=== PATIENT | female | born 1935 | race Caucasian/White ===

== ENCOUNTER 2016-08-17 10:00 | Inpatient (IN) | payer OTHER ==
[2016-08-17 10:42] VITALS: BMI 25.7
[2016-08-17] MEDS ORDERED: ACETAMINOPHEN 1000 MG/100 ML VIAL (NON FORMULARY) IVPB ONE (10:43)
[2016-08-17] MEDS ORDERED: ACETAMINOPHEN INJECTION 100 ML IVPB ONE (10:47)
--- NOTE | 2016-08-17 10:47 | PDOC ---
History of Present Illness - General History Source: Patient, Care Provider Exam Limitations: Dementia - History of Present Illness Initial Comments: 08/17/16 10:48 The patient is a 80 year old female, with a significant past medical history of HTN, HLD, NIDDM, Alzheimer's disease (A&O x 2 at baseline), and MS (able to walk with assistance) who presents to the emergency department with s/p unwitnessed fall. The patients aid reports finding the patient on the floor, reporting that the states she trip and fell earlier in the morning. The patients aid reports since finding the patient on the floor she has had been more tired than her normal baseline. The patient does not remember the fall and has no complaints of pain. She denies recent fevers, chills, headache or dizziness. She denies recent nausea, vomit, diarrhea or constipation. She denies recent dysuria, frequency, urgency or hematuria. She denies recent chest pain or shortness of breath. Allergies: NKA Past surgical history: None reported. Social history: Nonsmoker. Denies EtOH use and recreational drug use. Lives with , has aide 5 days a week, for 6 hours. Primary Care Physician: [facility] Proxy: Eunice Urbina [phone] <Daniel Bassett - Last Filed: 08/17/16 10:47> - General History Source: Patient, Care Provider, Old Records Exam Limitations: Dementia <Kev Hernandez - Last Filed: 08/17/16 16:14> - General Chief Complaint: Altered Mental Status Stated Complaint: Altered Mental Status Time Seen by Provider: 08/17/16 10:13 Past History <Daniel Bassett - Last Filed: 08/17/16 10:47> - Past Medical History Anemia: No Asthma: No Cancer: No Cardiac Disorders: No CVA: No COPD: No CHF: No Dementia: Yes Diabetes: Yes GI Disorders: Yes (diverticulosis, IBS, hemmoroids) Disorders: No HTN: Yes Hypercholesterolemia: Yes Liver Disease: No Seizures: No Thyroid Disease: No - Surgical History Abdominal Surgery: No Appendectomy: Yes Cardiac Surgery: No Cholecystectomy: No Lung Surgery: No Neurologic Surgery: No Orthopedic Surgery: Yes (femur fx) - Immunization History Immunization Up to Date: Yes - Psycho/Social/Smoking Cessation Hx Anxiety: No Suicidal Ideation: No Smoking History: Unknown if ever smoked Have you smoked in the past 12 months: No If you are a former smoker, when did you quit?: 20 yrs ago Information on smoking cessation initiated: No Hx Alcohol Use: No Drug/Substance Use Hx: No Substance Use Type: None Hx Substance Use Treatment: No <Kev Hernandez - Last Filed: 08/17/16 16:14> - Past Medical History Allergies/Adverse Reactions: Allergies Allergy/AdvReac Type Severity Reaction Status Date / Time No Known Allergies Allergy Verified 08/04/15 08:12 Home Medications: Ambulatory Orders Acetaminophen [Tylenol .Regular Strength -] 650 mg PO Q4H PRN #100 tablet Aspirin [ASA -] 81 mg PO DAILY #30 tab.chew 10/29/13 Atorvastatin Ca [Lipitor] 20 mg PO HS #30 tablet 10/29/13 Clopidogrel Bisulfate [Plavix -] 75 mg PO DAILY #30 tablet 10/29/13 Donepezil HCl [Aricept -] 10 mg PO HS #30 tablet 10/29/13 Memantine HCl [Namenda -] 10 mg PO BID #60 tablet 10/29/13 Metformin HCl [Glucophage -] 500 mg PO ACDIN #30 tablet 10/29/13 Atenolol [Tenormin -] 25 mg PO DAILY #30 tablet 06/20/14 Brimonidine Tartrate [Alphagan P 0.1% -] 1 drop OU BID drops 06/20/14 Olanzapine [Zyprexa -] 5 mg PO HS #30 tablet 06/20/14 Lactobacillus Acidophilus [Acidophilus Lactobacillus] 1 each PO DAILY 10 Days Review of Systems - Review of Systems Able to Perform ROS?: Yes Comments:: 08/17/16 10:48 GENERAL/CONSTITUTIONAL: No fever or chills. HEAD, EYES, EARS, NOSE AND THROAT: No change in vision. No ear pain or discharge. No sore throat. CARDIOVASCULAR: No chest pain or shortness of breath. RESPIRATORY: No cough, wheezing, or hemoptysis. GASTROINTESTINAL: No nausea, vomiting, diarrhea or constipation. GENITOURINARY: No dysuria, frequency, or change in urination. MUSCULOSKELETAL: No joint or muscle swelling or pain. No neck or back pain. SKIN: No rash NEUROLOGIC: No headache, vertigo, loss of consciousness, or change in strength/ sensation. ENDOCRINE: No increased thirst. No abnormal weight change. HEMATOLOGIC/LYMPHATIC: No anemia, easy bleeding, or history of blood clots. ALLERGIC/IMMUNOLOGIC: No hives or skin allergy. <Daniel Bassett - Last Filed: 08/17/16 10:47> *Physical Exam - Vital Signs Last Vital Signs Temp Pulse Resp BP Pulse Ox 100.3 F H 62 18 134/58 92 L 08/17/16 10:23 08/17/16 10:23 08/17/16 10:08/17/16 10:23 08/17/16 10:23 - Physical Exam Comments: 08/17/16 10:48 GENERAL: A&O x2, in no acute distress HEAD: No signs of trauma EYES: PERRLA, EOMI, sclera anicteric, conjunctiva clear ENT: Auricles normal inspection, hearing grossly normal, nares patent, oropharynx clear without exudates. Moist mucosa NECK: Normal ROM, supple, no lymphadenopathy, JVD, or masses LUNGS: Breath sounds equal, clear to auscultation bilaterally. No wheezes, and no crackles HEART: Regular rate and rhythm, normal S1 and S2, no murmurs, rubs or gallops ABDOMEN: Soft, nontender, normoactive bowel sounds. No guarding, no rebound. No masses EXTREMITIES: Normal range of motion, no edema. No clubbing or cyanosis. No cords, erythema, or tenderness NEUROLOGICAL: Cranial nerves II through XII grossly intact. SKIN: Warm, Dry, normal turgor, no rashes or lesions noted. <Daniel Bassett - Last Filed: 08/17/16 10:47> - Vital Signs Last Vital Signs Temp Pulse Resp BP Pulse Ox 100.3 F H 62 18 134/58 92 L 08/17/16 10:23 08/17/16 10:23 08/17/16 10:08/17/16 10:23 08/17/16 10:23 <Kev Hernandez - Last Filed: 08/17/16 16:14> Heart Score/ECG Review #1 ECG reviewed & interpreted by me at: 11:00 08/17/16 11:47 NSr 67, left axis deviation, TWI I, aVL, V4-V6, no HOWARD/STD, QTC 445 msec <MaryKev - Last Filed: 08/17/16 16:14> ED Treatment Course - LABORATORY CBC & Chemistry Diagram: 08/17/16 15:16 08/17/16 12:40 - RADIOLOGY Radiology Studies Ordered: Category Date Time Status HEAD CT WITHOUT CONTRAST [CT] Stat CT Scan 08/17/16 10:43 Ordered CHEST X-RAY PORTABLE* [RAD] Stat Radiology 08/17/16 10:18 Ordered <Debra Hernandezel - Last Filed: 08/17/16 16:14> Medical Decision Making - Medical Decision Making 08/17/16 11:46 A portion of this note was documented by scribe services under my direction. I have reviewed the details of the note, within reason, and agree with the documentation with the following case summary and management plan written by me. Patient treated in the ED. Nursing notes are reviewed and incorporated into the medical decision-making. Vital signs reviewed. Peripheral IV access obtained by the nurse, laboratory studies are drawn and sent, reviewed and interpreted by myself. Vital Signs Temp Pulse Resp BP Pulse Ox 100.3 F H 62 18 134/58 92 L 08/17/16 10:23 08/17/16 10:23 08/17/16 10:23 08/17/16 10:23 08/17/16 10:23 80-year-old female with past medical history of hypertension, diabetes, hyperlipidemia, Alzheimer's disease, multiple sclerosis, history urinary tract infections presents with found on ground. Patient lives with her but has daytime home health aides. When the home health aide came, the patient was not on the ground with a pillow underneath her head. The patient's was not sure the patient fell or not and has been on the ground for several hours. The home health aide noticed that the patient was warm and brought the patient to ED. The patient is at mental baseline according to the home health aide. However, with a temperature as noted in the vital signs, adult sepsis protocol initiated. We'll also initiate a head CT. Patient's whole mouth a noticed a mild cough as well. Chest x-ray and reassess. 08/17/16 16:14 CBC, BMP 08/17/16 15:16 08/17/16 12:40 CMP Sodium 144 mmol/L (136-145) 08/17/16 12:40 Potassium 3.7 mmol/L (3.5-5.1) 08/17/16 12:40 Chloride 104 mmol/L (98-107) 08/17/16 12:40 Carbon Dioxide 31 mmol/L (21-32) 08/17/16 12:40 Anion Gap 9 (8-16) 08/17/16 12:40 BUN 15 mg/dL (7-18) D 08/17/16 12:40 Creatinine 0.7 mg/dL (0.55-1.02) 08/17/16 12:40 Creat Clearance w eGFR > 60 (>60) 08/17/16 12:40 Random Glucose 121 mg/dL (74-106) H D 08/17/16 12:40 Lactic Acid 1.6 mmol/L (0.4-2.0) 08/17/16 12:40 Calcium 9.1 mg/dL (8.5-10.1) 08/17/16 12:40 Total Bilirubin 0.7 mg/dL (0.2-1.0) D 08/17/16 12:40 AST 18 U/L (15-37) 08/17/16 12:40 ALT 16 U/L (12-78) D 08/17/16 12:40 Alkaline Phosphatase 109 U/L (45-117) 08/17/16 12:40 Creatine Kinase 265 IU/L (26-192) H D 08/17/16 12:40 Troponin I < 0.02 ng/ml (0.00-0.05) 08/17/16 12:40 Total Protein 6.1 g/dl (6.4-8.2) L 08/17/16 12:40 Albumin 3.2 g/dl (3.4-5.0) L 08/17/16 12:40 Urine Test Results Urine Color Yellow 08/17/16 11:51 Urine Appearance Slcloudy 08/17/16 11:51 Urine pH 5.0 (5.0-8.0) 08/17/16 11:51 Urine Protein Negative (NEGATIVE) 08/17/16 11:51 Urine Glucose (UA) Negative (NEGATIVE) 08/17/16 11:51 Urine Ketones Negative (NEGATIVE) 08/17/16 11:51 Urine Blood Negative (NEGATIVE) 08/17/16 11:51 Urine Nitrite Positive (NEGATIVE) 08/17/16 11:51 Urine Bilirubin Negative (NEGATIVE) 08/17/16 11:51 Ur Leukocyte Esterase 3+ (NEGATIVE) H D 08/17/16 11:51 Urine RBC 1 /hpf (0-3) 08/17/16 11:51 Urine WBC 193 /hpf (3-5) 08/17/16 11:51 Ur Epithelial Cells Rare /hpf (FEW) 08/17/16 11:51 Urine Bacteria Few /hpf (NONE SEEN) 08/17/16 11:51 Urine Mucus Rare 08/17/16 11:[address] head reviewed. No acute findings. Microbiology reviewed. Has some resistance. Given zosyn. Decision was made to admit the patient. case discussed with Dr. Martinez who accepts the patient for UTI. <Kev Hernandez - Last Filed: 08/17/16 16:14> *DC/Admit/Observation/Transfer - Attestations Scribe Attestion: 08/17/16 10:48 Documentation prepared by Daniel Bassett, acting as medical affairs director for Kev Hernandez MD. <Daniel Bassett - Last Filed: 08/17/16 10:47> - Discharge Dispostion Admit: Yes <Kev Hernandez - Last Filed: 08/17/16 16:14> Diagnosis at time of Disposition: UTI (urinary tract infection) Qualifiers: Urinary tract infection type: site unspecified Hematuria presence: without hematuria Qualified Code(s): N39.0 - Urinary tract infection, site not specified - Discharge Dispostion Condition at time of disposition: Stable - Referrals Referrals: Harley Altman MD [Primary Care Provider] -
[2016-08-17] MEDS ORDERED: SODIUM CHLORIDE 500 ML IV STA (11:56)
[2016-08-17 12:02] LABS: URINE APPEARANCE SLCLOUDY; URINE BILIRUBIN NEGATIVE (NEGATIVE); URINE BLOOD NEGATIVE (NEGATIVE); URINE COLOR YELLOW; URINE GLUCOSE (UA) NEGATIVE (NEGATIVE); URINE KETONE NEGATIVE (NEGATIVE); URINE NITRITE POSITIVE (NEGATIVE); URINE PROTEIN NEGATIVE (NEGATIVE); URINE UROBILINOGEN NEGATIVE E.U./dl (0.2-1.0)
[2016-08-17 12:05] LABS: URINE LEUK ESTERASE 3+ (NEGATIVE)
[2016-08-17 12:08] LABS: URINE BACTERIA FEW /hpf (NONE SEEN); URINE MUCUS RARE; URINE RBC 1 /hpf (0-3); URINE WBC 193 /hpf (3-5)
[2016-08-17 12:19] LABS: INR 1.03 (0.82-1.09); PROTHROMBIN TIME (PATIENT) 11.3 SEC (9.98-11.88)
[2016-08-17 12:21] LABS: ACTIVATED PTT 17.7 SECONDS (26.9-34.4)
[2016-08-17] MEDS ORDERED: PIPERACILLIN/TAZOB 3.375 GM/50 ML PRE-DOCKED IVPB ONE (12:37)
[2016-08-17] MEDS ORDERED: PIPERACILLIN/TAZOB 3.375 GM 50 ML IVPB ONE (13:01)
--- NOTE | 2016-08-17 13:04 | EKG ---
Test Reason : Blood Pressure : / mmHG Vent. Rate : 067 BPM Atrial Rate : 067 BPM P-R Int : 136 ms QRS Dur : 112 ms QT Int : 422 ms P-R-T Axes : 061 -40 136 degrees QTc Int : 445 ms NORMAL SINUS RHYTHM LEFT AXIS DEVIATION POSSIBLE ANTERIOR INFARCT (CITED ON OR BEFORE 21-OCT-2013) ABNORMAL ECG WHEN COMPARED WITH ECG OF 04-AUG-2015 08:42, QUESTIONABLE CHANGE IN INITIAL FORCES OF ANTERIOR LEADS T WAVE INVERSION NOW EVIDENT IN ANTEROLATERAL LEADS Confirmed by VIDHYA VIVAR, ALANA ([id number]) on 08/17/2016 1:03:51 PM Referred By: Confirmed By:ALANA KEE MD
[2016-08-17 13:12] LABS: ALBUMIN 3.2 g/dl (3.4-5.0); ANION GAP 9 (8-16); BILIRUBIN,TOTAL 0.7 mg/dL (0.2-1.0); CALCIUM 9.1 mg/dL (8.5-10.1); CO2 31 mmol/L (21-32); CREATININE 0.7 mg/dL (0.55-1.02); GLUCOSE,RANDOM 121 mg/dL (74-106); SGOT/AST 18 U/L (15-37); SGPT/ALT 16 U/L (12-78); TOT PROT 6.1 g/dl (6.4-8.2)
[2016-08-17 13:15] LABS: ALK PHOS 109 U/L (45-117); TROPONIN I < 0.02 ng/ml (0.00-0.05)
[2016-08-17] MEDS ORDERED: LORAZEPAM CARPU-JECT 2 MG/ML DISP.SYRIN IM ONE (14:01)
[2016-08-17] MEDS ORDERED: HALOPERIDOL LACTATE 5 MG/ML IM ONE (14:01)
[2016-08-17] MEDS ORDERED: HALOPERIDOL LACTATE 5 MG/ML ONE (14:29)
[2016-08-17] MEDS ORDERED: LORazepam 2 MG/ML SDV VIAL ONE (14:29)
[2016-08-17 15:31] LABS: BASOPHIL 0.5 % (0-2.0); EOSINOPHIL 0.2 % (0-4.5); MCH 32.3 pg (25.7-33.7); MCHC 33.5 g/dl (32.0-36.0); MEAN CELL VOLUME 96.3 fl (80-96); NEUTROPHILS 81.3 % (42.8-82.8); PLATELET COUNT 191 K/MM3 (134-434); RDW 12.5 % (11.6-15.6); WHITE BLOOD COUNT 9.9 K/mm3 (4.0-10.0)
[2016-08-17] MEDS ORDERED: ONDANSETRON 4 MG/2 ML VIAL IVPB PRN (16:35)
[2016-08-17] MEDS ORDERED: ACETAMINOPHEN 325 MG TABLET (FP) PO PRN (16:35)
--- NOTE | 2016-08-17 16:38 | HP ---
Admitting History and Physical - Primary Care Physician PCP: Harley Altman - Admission Chief Complaint: I feel fine History of Present Illness: Mrs Urbina is a very pleasant 80 year old female with history of dementia who was brought in for weakness and fatigue. Mrs Urbina gives me minimal history. She says she feels fine.She denies fevers, chest pain, shortness of breath, or nausea. She does not answer any other questions. Aid is at bedside and she states she last saw Mrs Urbina on Monday. At that time she was in her normal state of health. She went over today and found her on the ground. It is unclear if she fell or laid on the ground of her own accord. Her states he found her that way this morning, and since was unable to pick her up placed a pillow under her head. The aid picked her up and put her in a chair. She went and prepared breakfast, patient did not eat anything. Then she noticed the patient was very weak and lethargic and brought her in for further evaluation. 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: Alzheimer's (Mild (on Aricept and Namenda)), Other (Possible demyelinating disorder (sees Dr Barajas)) Cardiovascular: Yes: CAD, Hyperlipdemia, Other (H/O PVCs Sinus tachycardia) Gastrointestinal: Yes: Diverticulosis, Hemorrhoids, Irritable Bowel Disease Renal/: Yes: UTI (H/O) Musculoskeletal: Yes: Osteoarthritis Endocrine: Yes: Diabetes Mellitus - Past Surgical History Past Surgical History: Yes: Appendectomy, Cataract Removal (bilateral) - Smoking History Smoking history: Unknown if ever smoked Have you smoked in the past 12 months: No If you are a former smoker, when did you quit?: 20 yrs ago - Alcohol/Substance Use Hx Alcohol Use: No History of Substance Use: reports: None - Social History Usual Living Arrangement: Yes: With Spouse ADL: Support Services History of Recent Travel: No Home Medications - Allergies Allergies/Adverse Reactions: Allergies Allergy/AdvReac Type Severity Reaction Status Date / Time No Known Allergies Allergy Verified 08/04/15 08:12 - Home Medications Home Medications: Ambulatory Orders Acetaminophen [Tylenol .Regular Strength -] 650 mg PO Q4H PRN #100 tablet Aspirin [ASA -] 81 mg PO DAILY #30 tab.chew 10/29/13 Atorvastatin Ca [Lipitor] 20 mg PO HS #30 tablet 10/29/13 Clopidogrel Bisulfate [Plavix -] 75 mg PO DAILY #30 tablet 10/29/13 Donepezil HCl [Aricept -] 10 mg PO HS #30 tablet 10/29/13 Memantine HCl [Namenda -] 10 mg PO BID #60 tablet 10/29/13 Metformin HCl [Glucophage -] 500 mg PO ACDIN #30 tablet 10/29/13 Atenolol [Tenormin -] 25 mg PO DAILY #30 tablet 06/20/14 Brimonidine Tartrate [Alphagan P 0.1% -] 1 drop OU BID drops 06/20/14 Olanzapine [Zyprexa -] 5 mg PO HS #30 tablet 06/20/14 Lactobacillus Acidophilus [Acidophilus Lactobacillus] 1 each PO DAILY 10 Days Family Disease History - Family Disease History Family History: Unable to Obtain Review of Systems Findings/Remarks: Attempted to obtain full ROS but unable secondary to dementia, otherwise as per HPI Physical Examination Vital Signs: Vital Signs Temperature 100.3 F H 08/17/16 10:23 Pulse Rate 62 08/17/16 10:23 Respiratory Rate 18 08/17/16 10:23 Blood Pressure 134/58 08/17/16 10:23 O2 Sat by Pulse Oximetry (%) 92 L 08/17/16 10:23 Constitutional: Yes: Well Nourished, No Distress, Calm Eyes: Yes: Conjunctiva Clear, PERRL HENT: Yes: Atraumatic, Normocephalic Cardiovascular: Yes: Regular Rate and Rhythm. No: Gallop, Murmur, Rub Respiratory: Yes: Regular, CTA Bilaterally. No: Rales, Rhonchi, Wheezes Gastrointestinal: Yes: Normal Bowel Sounds, Soft. No: Distention, Tenderness Extremities: Yes: WNL Edema: No Labs: CBC, BMP 08/17/16 15:16 08/17/16 12:40 Imaging - Results Chest X-ray: Report Reviewed, Image Reviewed Problem List - Problems (1) UTI (urinary tract infection) Assessment/Plan: -patient found to have a UTI -UTI last year growing enterococcus -will admit to med/surg -start rocephin, may be non-resistant -consult ID secondary to history of enterococcus -follow up blood and urine cultures Code(s): N39.0 - URINARY TRACT INFECTION, SITE NOT SPECIFIED Qualifiers: Urinary tract infection type: acute cystitis Hematuria presence: without hematuria Qualified Code(s): N30.00 - Acute cystitis without hematuria (2) Acute metabolic encephalopathy Assessment/Plan: -secondary to UTI -hydration -antibiotics as above -monitor for improvement Code(s): G93.41 - METABOLIC ENCEPHALOPATHY (3) Weakness Assessment/Plan: -secondary to UTI -fall risk precautions -PT consult Code(s): R53.1 - WEAKNESS (4) ASHD (arteriosclerotic heart disease) Assessment/Plan: -continue home regimen Code(s): I25.10 - ATHSCL HEART DISEASE OF [place] CORONARY ARTERY W/O ANG PCTRS (5) Dementia Assessment/Plan: -continue home regimen -exacerbated by UTI Code(s): F03.90 - UNSPECIFIED DEMENTIA WITHOUT BEHAVIORAL DISTURBANCE (6) Diabetes Assessment/Plan: -diabetic diet -continue metformin -FSBS and SSI Code(s): E11.9 - TYPE 2 DIABETES MELLITUS WITHOUT COMPLICATIONS Qualifiers: Diabetes mellitus type: type 2 Diabetes mellitus complication status: without complication
[2016-08-17] MEDS ORDERED: CEFTRIAXONE 50 ML IVPB SCH (17:15)
[2016-08-17] MEDS: SODIUM CHLORIDE 1,000 ML IV SCH (18:00)
[2016-08-17] MEDS ORDERED: CEFTRIAXONE 50 ML ONE (18:38)
[2016-08-17] MEDS ORDERED: INSULIN REGULAR HUMAN 100 UNITS/ML *VIAL ONE (18:39)
[2016-08-17] MEDS: DONEPEZIL HCL 10 MG TABLET (FP) PO SCH (23:14)
[2016-08-17] MEDS: ATORVASTATIN CA 20 MG TABLET (FP) PO SCH (23:14)
[2016-08-17] MEDS: BRIMONIDINE TARTRATE 0.1% OPHTHALMIC 5 ML BOTTLE OU SCH (23:14)
[2016-08-17] MEDS: INSULIN SLIDING SCALE (NOVOLOG) 1 VIAL SQ SCH (23:15)
[2016-08-17] MEDS: MEMANTINE HCL 10 MG TABLET (FP) PO SCH (23:15)
[2016-08-17] MEDS: OLANZapine 5 MG TABLET PO SCH (23:15)
[2016-08-18] MEDS: INSULIN SLIDING SCALE (NOVOLOG) 1 VIAL SQ SCH ×4 (06:31→21:41)
[2016-08-18 07:48] LABS: BASOPHIL 0.4 % (0-2.0); EOSINOPHIL 0.4 % (0-4.5); MCH 33.3 pg (25.7-33.7); MCHC 34.2 g/dl (32.0-36.0); MEAN CELL VOLUME 97.2 fl (80-96); PLATELET COUNT 167 K/MM3 (134-434); RDW 12.6 % (11.6-15.6); WHITE BLOOD COUNT 9.7 K/mm3 (4.0-10.0)
[2016-08-18 08:14] LABS: CALCIUM 8.8 mg/dL (8.5-10.1); COCKROFT - GAULT 64.7955; CREATININE 0.7 mg/dL (0.55-1.02); MAGNESIUM 2.2 mg/dL (1.8-2.4); PHOSPHOROUS 2.4 mg/dL (2.5-4.9)
--- NOTE | 2016-08-18 09:36 | PN ---
Progress Note (short form) - Note Progress Note: ID Full note dictated Rx for UTI Cultures reviewed Microbiology 06/19/14 10:10 Urine - Urine Clean Catch Urine Culture - Final Escherichia Coli 05/09/15 18:28 Urine - Urine Clean Catch Urine Culture - Final Enterococcus Faecalis Advise Combo of Levoflox 250mg daily and oral amoxicillin ( E Coli was resistant to Ceftriaxone in past) Naz VIVAR Problem List - Problems (1) Fever Code(s): R50.9 - FEVER, UNSPECIFIED Qualifiers: Fever type: other Qualified Code(s): R50.81 - Fever presenting with conditions classified elsewhere (2) UTI (urinary tract infection) Code(s): N39.0 - URINARY TRACT INFECTION, SITE NOT SPECIFIED Qualifiers: Urinary tract infection type: acute cystitis Hematuria presence: without hematuria Qualified Code(s): N30.00 - Acute cystitis without hematuria
[2016-08-18] MEDS: SODIUM CHLORIDE 1,000 ML IV SCH (09:41)
[2016-08-18] MEDS ORDERED: PATIENT'S OWN MEDICATION (NON-FORMULARY) (Lactobacillus Acidophilus [Acidophilus Lactobaci PO SCH (10:00)
[2016-08-18] MEDS ORDERED: LACTOBACILLUS ACIDOPHILUS 1 EACH TAB (FP) PO SCH (10:00)
--- NOTE | 2016-08-18 10:21 | CONS ---
DATE OF CONSULTATION: DATE OF DICTATION: 08/18/2016 HISTORY OF PRESENT ILLNESS: This is an 80-year-old female with a known history of dementia whom I am asked to see for treatment of suspected urinary tract infection. She was apparently brought to the hospital with generalized weakness and fatigue. She offers minimal history because of her dementia and currently states she feels fine with no localizing complaints. She was apparently found on the ground prior to admission and unclear if she had fallen or if she purposely laid herself on the floor. She was noted to be weak and lethargic and admitted for further evaluation and treatment. Her temperature was noted to be 100.3 on admission, and a urinalysis suggested possible urinary tract infection, which she has had before. Most recently in 2016, she had an enterococcus and a urine culture and before that E. coli resistant to ceftriaxone. She is currently on ceftriaxone. PAST MEDICAL HISTORY: Includes dementia, coronary artery disease, hyperlipidemia, diverticulosis, inflammatory bowel disease, osteoporosis, diabetes, appendectomy, cataract. MEDICATIONS: Aspirin, atorvastatin, Plavix, Namenda, metformin, atenolol, Zyprexa. ALLERGIES: None known. SOCIAL HISTORY: She lives with her , is a former smoker (gave this up many years ago), no history of alcohol use. FAMILY HISTORY: Unobtainable. REVIEW OF SYSTEMS: Respiratory: No cough, shortness of breath, or hemoptysis. Cardiac: No chest pain, palpitations, or syncope. Gastrointestinal: No abdominal pain, nausea, vomiting, or diarrhea. Genitourinary: Denies dysuria, hematuria, or urinary frequency. PHYSICAL EXAMINATION: Vital signs: The temperature was 100.3 on August 17, pulse 62, respirations 18, blood pressure 134/58, O2 oximetry 92%. General: She appeared alert, pleasantly confused, and in no acute distress. Neck: Supple, without adenopathy. Lungs: Clear to percussion and auscultation. Heart: S1, S2, regular rhythm, without gallop, murmur, or rub. Abdomen: Positive bowel sounds, soft, no distension, no localized tenderness, guarding, or rebound. Extremities: No clubbing, cyanosis, or edema. LABORATORY DATA: The white count was 9.8, hemoglobin 13.1, platelets 191. BUN 15, creatinine 0.7, glucose of 121. Urinalysis 3+ leukocyte esterase, 1 RBC, 193 WBCs. ASSESSMENT: An 80-year-old female with dementia history, apparent altered mental status with diagnosis listed as acute metabolic encephalopathy. The possibility of precipitating urinary tract infection precipitating her mental status change considered. Previous urine cultures reviewed. PLAN: Discontinue ceftriaxone based on previous sensitivity for E. coli. Will give levofloxacin 250 mg IV daily along with oral amoxicillin for a possible enterococcal coverage. Thus far, two sets of blood cultures are with no growth. Anticipate short length of stay. SAMAN IBANEZ M.D. [id number]
[2016-08-18] MEDS ORDERED: PT OWN MED DRAWER 7, Y5N ONE ×3 (10:34→21:15)
[2016-08-18] MEDS: LACTOBACILLUS ACIDOPHILUS 1 EACH TAB (FP) PO SCH (10:38)
[2016-08-18] MEDS: MEMANTINE HCL 10 MG TABLET (FP) PO SCH ×2 (10:38→21:41)
[2016-08-18] MEDS: LEVOFLOXACIN 250 MG IVPB 50 ML IVPB SCH (10:38)
[2016-08-18] MEDS: ENOXAPARIN NA (PORCINE) 40 MG/0.4 ML DISP.SYRIN SQ SCH (10:38)
[2016-08-18] MEDS: BRIMONIDINE TARTRATE 0.1% OPHTHALMIC 5 ML BOTTLE OU SCH ×2 (10:38→21:40)
[2016-08-18] MEDS: ASPIRIN 81 MG CHEWABLE TABLETS PO SCH (10:38)
[2016-08-18] MEDS: ATENOLOL 25 MG TABLET (FP) PO SCH (10:39)
[2016-08-18] MEDS: CLOPIDOGREL BISULFATE 75 MG TABLET (FP) PO SCH (10:39)
--- NOTE | 2016-08-18 13:11 | PN ---
Progress Note, Physician Chief Complaint: Mrs Urbina says she feels weak. Denies cp, sob, n/v. Confused today, but much more interactive and improved. Asked where this building was and was telling me about an unsuccessful career center on her street. - Current Medication List Current Medications: Active Medications Acetaminophen (Tylenol -) 650 mg PO Q4H PRN PRN Reason: FEVER OR PAIN Amoxicillin (Amoxicillin -) 500 mg PO TID [facility] Aspirin (Asa -) 81 mg PO DAILY [facility] Last Admin: 08/18/16 10:38 Dose: 81 mg Atenolol (Tenormin -) 25 mg PO DAILY [facility] Last Admin: 08/18/16 10:39 Dose: 25 mg Atorvastatin Calcium (Lipitor -) 20 mg PO HS [facility] Last Admin: 08/17/16 23:14 Dose: 20 mg Brimonidine Tartrate (Alphagan P 0.1% -) 1 drop OU BID [facility] Last Admin: 08/18/16 10:38 Dose: 1 drop Clopidogrel Bisulfate (Plavix -) 75 mg PO DAILY [facility] Last Admin: 08/18/16 10:39 Dose: 75 mg Donepezil HCl (Aricept -) 10 mg PO HS [facility] Last Admin: 08/17/16 23:14 Dose: 10 mg Enoxaparin Sodium (Lovenox -) 40 mg SQ DAILY [facility] Last Admin: 08/18/16 10:38 Dose: 40 mg Sodium Chloride (Normal Saline -) 1,000 mls @ 75 mls/hr IV ASDIR [facility] Last Admin: 08/18/16 09:41 Dose: 75 mls/hr Levofloxacin (Levaquin 250 Mg Premixed Ivpb -) 50 mls @ 50 mls/hr IVPB DAILY [facility] Last Admin: 08/18/16 10:38 Dose: 50 mls/hr Insulin Aspart (Novolog Vial Sliding Scale -) 1 vial SQ ACHS [facility] PRN Reason: Protocol Last Admin: 08/18/16 12:19 Dose: Not Given Lactobacillus Acidophilus (Bacid -) 1 tab PO DAILY [facility] Last Admin: 08/18/16 10:38 Dose: 1 tab Lactobacillus Acidophilus (Bacid -) 1 tab PO DAILY [facility] Memantine (Namenda -) 10 mg PO BID [facility] Last Admin: 08/18/16 10:38 Dose: 10 mg Metformin HCl (Glucophage -) 500 mg PO ACDIN [facility] Olanzapine (Zyprexa -) 5 mg PO HS [facility] Last Admin: 08/17/16 23:15 Dose: 5 mg Ondansetron HCl (Zofran Injection) 4 mg IVPB Q6H PRN PRN Reason: NAUSEA - Objective Vital Signs: Vital Signs Temperature 100.1 F H 08/18/16 12:00 Pulse Rate 72 08/18/16 10:31 Respiratory Rate 18 08/18/16 10:31 Blood Pressure 131/84 08/18/16 10:31 O2 Sat by Pulse Oximetry (%) 94 L 08/17/16 22:00 Constitutional: Yes: Well Nourished, No Distress, Calm Cardiovascular: Yes: Regular Rate and Rhythm. No: Gallop, Murmur, Rub Respiratory: Yes: Regular, CTA Bilaterally. No: Rales, Rhonchi, Wheezes Gastrointestinal: Yes: Normal Bowel Sounds, Soft. No: Distention, Tenderness Extremities: Yes: WNL Edema: No Labs: CBC, BMP 08/18/16 06:45 08/18/16 06:45 INR, PTT INR 1.03 (0.82-1.09) 08/17/16 11:51 Problem List - Problems (1) UTI (urinary tract infection) Code(s): N39.0 - URINARY TRACT INFECTION, SITE NOT SPECIFIED Qualifiers: Urinary tract infection type: acute cystitis Hematuria presence: without hematuria Qualified Code(s): N30.00 - Acute cystitis without hematuria (2) Acute metabolic encephalopathy Code(s): G93.41 - METABOLIC ENCEPHALOPATHY (3) Weakness Code(s): R53.1 - WEAKNESS (4) ASHD (arteriosclerotic heart disease) Code(s): I25.10 - ATHSCL HEART DISEASE OF [place] CORONARY ARTERY W/O ANG PCTRS (5) Dementia Code(s): F03.90 - UNSPECIFIED DEMENTIA WITHOUT BEHAVIORAL DISTURBANCE (6) Diabetes Code(s): E11.9 - TYPE 2 DIABETES MELLITUS WITHOUT COMPLICATIONS Qualifiers: Diabetes mellitus type: type 2 Diabetes mellitus complication status: without complication Assessment/Plan (1) UTI (urinary tract infection) Assessment/Plan: -appreciate ID assistance -rocephin changed to levaquin and augmentin -follow up urine cultures Code(s): N39.0 - URINARY TRACT INFECTION, SITE NOT SPECIFIED Qualifiers: Urinary tract infection type: acute cystitis Hematuria presence: without hematuria Qualified Code(s): N30.00 - Acute cystitis without hematuria (2) Acute metabolic encephalopathy Assessment/Plan: -secondary to UTI -much improved -suspect close to baseline Code(s): G93.41 - METABOLIC ENCEPHALOPATHY (3) Weakness Assessment/Plan: -secondary to UTI -fall risk precautions -PT consulted Code(s): R53.1 - WEAKNESS (4) ASHD (arteriosclerotic heart disease) Assessment/Plan: -continue home regimen Code(s): I25.10 - ATHSCL HEART DISEASE OF [place] CORONARY ARTERY W/O ANG PCTRS (5) Dementia Assessment/Plan: -continue home regimen Code(s): F03.90 - UNSPECIFIED DEMENTIA WITHOUT BEHAVIORAL DISTURBANCE (6) Diabetes Assessment/Plan: -diabetic diet -continue metformin -FSBS and SSI Code(s): E11.9 - TYPE 2 DIABETES MELLITUS WITHOUT COMPLICATIONS Qualifiers: Diabetes mellitus type: type 2 Diabetes mellitus complication status: without complication
[2016-08-18] MEDS: AMOXICILLIN 500 MG CAPSULE (FP) PO SCH ×2 (15:00→21:40)
[2016-08-18] MEDS: metFORMIN HCL 500 MG TABLET (FP) PO SCH (17:52)
[2016-08-18] MEDS: DONEPEZIL HCL 10 MG TABLET (FP) PO SCH (21:40)
[2016-08-18] MEDS: ATORVASTATIN CA 20 MG TABLET (FP) PO SCH (21:40)
[2016-08-18] MEDS: OLANZapine 5 MG TABLET PO SCH (21:41)
[2016-08-19] MEDS: SODIUM CHLORIDE 1,000 ML IV SCH ×3 (00:09→19:32)
[2016-08-19] MEDS: AMOXICILLIN 500 MG CAPSULE (FP) PO SCH (06:09)
[2016-08-19] MEDS: INSULIN SLIDING SCALE (NOVOLOG) 1 VIAL SQ SCH ×4 (06:13→21:25)
[2016-08-19 08:10] LABS: ANION GAP 7 (8-16); CO2 27 mmol/L (21-32); CREATININE 0.5 mg/dL (0.55-1.02); GLUCOSE,RANDOM 126 mg/dL (74-106); MAGNESIUM 1.9 mg/dL (1.8-2.4); PHOSPHOROUS 2.2 mg/dL (2.5-4.9)
[2016-08-19 08:53] LABS: BASOPHIL 0.4 % (0-2.0); EOSINOPHIL 0.8 % (0-4.5); MCH 33.2 pg (25.7-33.7); MCHC 34.2 g/dl (32.0-36.0); MEAN CELL VOLUME 96.9 fl (80-96); MEAN PLT VOLUME 7.2 fl (7.5-11.1); NEUTROPHILS 76.5 % (42.8-82.8); PLATELET COUNT 158 K/MM3 (134-434); RDW 12.9 % (11.6-15.6); WHITE BLOOD COUNT 8.4 K/mm3 (4.0-10.0)
[2016-08-19] MEDS ORDERED: PT OWN MED DRAWER 7, Y5N ONE ×2 (11:07→20:59)
[2016-08-19] MEDS: LEVOFLOXACIN 250 MG IVPB 50 ML IVPB SCH (11:17)
[2016-08-19] MEDS: BRIMONIDINE TARTRATE 0.1% OPHTHALMIC 5 ML BOTTLE OU SCH ×2 (11:18→21:21)
[2016-08-19] MEDS: LACTOBACILLUS ACIDOPHILUS 1 EACH TAB (FP) PO SCH (11:19)
[2016-08-19] MEDS: ATENOLOL 25 MG TABLET (FP) PO SCH (11:19)
[2016-08-19] MEDS: CLOPIDOGREL BISULFATE 75 MG TABLET (FP) PO SCH (11:19)
[2016-08-19] MEDS: ASPIRIN 81 MG CHEWABLE TABLETS PO SCH (11:19)
[2016-08-19] MEDS: MEMANTINE HCL 10 MG TABLET (FP) PO SCH ×2 (11:19→21:22)
[2016-08-19] MEDS: ENOXAPARIN NA (PORCINE) 40 MG/0.4 ML DISP.SYRIN SQ SCH (11:19)
--- NOTE | 2016-08-19 11:55 | PN ---
Progress Note (short form) - Note Progress Note: alert, nad Vital Signs Period Temp Pulse Resp BP Sys/Dudley Pulse Ox Last 24 Hr 98.3 F-100.1 F 70-85 18-20 120-152/56-83 98 cor-rrr lungs clear abd soft,nt ext no edema CBC, BMP 08/19/16 06:40 08/19/16 06:40 Microbiology 08/17/16 11:51 Urine - Urine Clean Catch Urine Culture - Preliminary Lactose Fermenting Neg Bacilli 08/17/16 11:51 Blood - Peripheral Venous Blood Culture - Preliminary NO GROWTH OBTAINED AFTER 24 HOURS, INCUBATION TO CONTINUE FOR 4 DAYS. 08/17/16 11:51 Blood - Peripheral Venous Blood Culture - Preliminary NO GROWTH OBTAINED AFTER 24 HOURS, INCUBATION TO CONTINUE FOR 4 DAYS. a/p UTI d/c amox, continue levaquin, f/u cultures
--- NOTE | 2016-08-19 12:11 | PN ---
Progress Note, Physician Chief Complaint: Feels improved - Current Medication List Current Medications: Active Medications Acetaminophen (Tylenol -) 650 mg PO Q4H PRN PRN Reason: FEVER OR PAIN Aspirin (Asa -) 81 mg PO DAILY [facility] Last Admin: 08/19/16 11:19 Dose: 81 mg Atenolol (Tenormin -) 25 mg PO DAILY [facility] Last Admin: 08/19/16 11:19 Dose: 25 mg Atorvastatin Calcium (Lipitor -) 20 mg PO HS [facility] Last Admin: 08/18/16 21:40 Dose: 20 mg Brimonidine Tartrate (Alphagan P 0.1% -) 1 drop OU BID [facility] Last Admin: 08/19/16 11:18 Dose: 1 drop Clopidogrel Bisulfate (Plavix -) 75 mg PO DAILY [facility] Last Admin: 08/19/16 11:19 Dose: 75 mg Donepezil HCl (Aricept -) 10 mg PO HS [facility] Last Admin: 08/18/16 21:40 Dose: 10 mg Enoxaparin Sodium (Lovenox -) 40 mg SQ DAILY [facility] Last Admin: 08/19/16 11:19 Dose: 40 mg Sodium Chloride (Normal Saline -) 1,000 mls @ 75 mls/hr IV ASDIR [facility] Last Admin: 08/19/16 00:09 Dose: 75 mls/hr Levofloxacin (Levaquin 250 Mg Premixed Ivpb -) 50 mls @ 50 mls/hr IVPB DAILY [facility] Last Admin: 08/19/16 11:17 Dose: 50 mls/hr Insulin Aspart (Novolog Vial Sliding Scale -) 1 vial SQ ACHS [facility] PRN Reason: Protocol Last Admin: 08/19/16 06:13 Dose: Not Given Lactobacillus Acidophilus (Bacid -) 1 tab PO DAILY [facility] Last Admin: 08/19/16 11:19 Dose: 1 tab Memantine (Namenda -) 10 mg PO BID [facility] Last Admin: 08/19/16 11:19 Dose: 10 mg Metformin HCl (Glucophage -) 500 mg PO ACDIN [facility] Last Admin: 08/18/16 17:52 Dose: 500 mg Olanzapine (Zyprexa -) 5 mg PO HS [facility] Last Admin: 08/18/16 21:41 Dose: 5 mg Ondansetron HCl (Zofran Injection) 4 mg IVPB Q6H PRN PRN Reason: NAUSEA - Objective Vital Signs: Vital Signs Temperature 98.3 F 08/19/15 21:45 Pulse Rate 72 08/19/1610:12 Respiratory Rate 18 08/19/1610:12 Blood Pressure 120/80 08/20/15 11:12 O2 Sat by Pulse Oximetry (%) 98 08/19/15 21:00 General: Elderly F comfortable, not in acute distress, denies any c/o Chest pain or SOB HEENT: Mm moist, anemia, PERRLA EOMI NECK: No JVD No Bruit CHEST: CTA B/L CVS: S1S2 R no m/g/r ABD: No Distention, Non tender Bs + EXT; No edema feet, no calf Tenderness, Pulses + 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 Code(s): N39.0 - URINARY TRACT INFECTION, SITE NOT SPECIFIED Qualifiers: Urinary tract infection type: acute cystitis Hematuria presence: without hematuria Qualified Code(s): N30.00 - Acute cystitis without hematuria (2) Acute metabolic encephalopathy Assessment/Plan: Due to UTI improving now more alert Code(s): G93.41 - METABOLIC ENCEPHALOPATHY (3) Weakness Assessment/Plan: Due to Dehydration and UTI -PT consulted Code(s): R53.1 - WEAKNESS (4) ASHD (arteriosclerotic heart disease) Assessment/Plan: -continue home regimen Code(s): I25.10 - ATHSCL HEART DISEASE OF [place] CORONARY ARTERY W/O ANG PCTRS (5) Dementia Assessment/Plan: -continue home regimen Code(s): F03.90 - UNSPECIFIED DEMENTIA WITHOUT BEHAVIORAL DISTURBANCE (6) Diabetes Assessment/Plan: On Metformin Fs are acceptable Code(s): E11.9 - TYPE 2 DIABETES MELLITUS WITHOUT COMPLICATIONS Qualifiers: Diabetes mellitus type: type 2 Diabetes mellitus complication status: without complication
[2016-08-19] MEDS: POTASSIUM CHLORIDE ORAL LIQUID 20 MEQ/15 ML PO ONE ×2 (14:47→15:07)
[2016-08-19] MEDS: NAPH,MB-DB/K PH,MBDB POWDER PACKET PO SCH ×2 (14:47→21:22)
[2016-08-19] MEDS: metFORMIN HCL 500 MG TABLET (FP) PO SCH (17:30)
[2016-08-19] MEDS ORDERED: POTASSIUM CHLORIDE ORAL LIQUID 20 MEQ/15 ML ONE (20:59)
[2016-08-19] MEDS: DONEPEZIL HCL 10 MG TABLET (FP) PO SCH (21:22)
[2016-08-19] MEDS: ATORVASTATIN CA 20 MG TABLET (FP) PO SCH (21:22)
[2016-08-19] MEDS: OLANZapine 5 MG TABLET PO SCH (21:22)
[2016-08-19] MEDS ORDERED: POTASSIUM CHLORIDE ORAL LIQUID 20 MEQ/15 ML PO ONE (21:45)
[2016-08-20] MEDS: INSULIN SLIDING SCALE (NOVOLOG) 1 VIAL SQ SCH ×4 (06:53→21:41)
[2016-08-20 08:04] LABS: BASOPHIL 0.6 % (0-2.0); EOSINOPHIL 1.5 % (0-4.5); MCHC 33.9 g/dl (32.0-36.0); MEAN CELL VOLUME 97.2 fl (80-96); NEUTROPHILS 69.3 % (42.8-82.8); PLATELET COUNT 179 K/MM3 (134-434); RDW 12.6 % (11.6-15.6)
[2016-08-20 08:12] LABS: ALBUMIN 2.6 g/dl (3.4-5.0); ANION GAP 9 (8-16); BILIRUBIN,TOTAL 0.6 mg/dL (0.2-1.0); CALCIUM 8.7 mg/dL (8.5-10.1); CO2 26 mmol/L (21-32); CREATININE 0.6 mg/dL (0.55-1.02); GLUCOSE,RANDOM 108 mg/dL (74-106); SGOT/AST 15 U/L (15-37); SGPT/ALT 13 U/L (12-78); TOT PROT 5.5 g/dl (6.4-8.2)
[2016-08-20 08:13] LABS: ALK PHOS 80 U/L (45-117)
--- NOTE | 2016-08-20 09:00 | PN ---
Progress Note (short form) - Note Progress Note: ID Levofloxacin Comfortable Selected Entries 08/20/16 06:50 Temperature 97.6 F Pulse Rate 58 L Respiratory 18 Rate Blood Pressure 135/68 Lung Clear Cor S1 S2 Abd Soft nontender Microbiology 08/17/16 11:51 Urine - Urine Clean Catch Urine Culture - Preliminary Lactose Fermenting Neg Bacilli 08/17/16 11:51 Blood - Peripheral Venous Blood Culture - Preliminary NO GROWTH OBTAINED AFTER 48 HOURS, INCUBATION TO CONTINUE FOR 3 DAYS. 08/17/16 11:51 Blood - Peripheral Venous Blood Culture - Preliminary NO GROWTH OBTAINED AFTER 48 HOURS, INCUBATION TO CONTINUE FOR 3 DAYS. 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
[2016-08-20] MEDS ORDERED: PT OWN MED DRAWER 7, Y5N ONE ×2 (09:29→17:13)
[2016-08-20] MEDS: LEVOFLOXACIN 250 MG TABLET (FP) PO SCH (10:22)
[2016-08-20] MEDS: CLOPIDOGREL BISULFATE 75 MG TABLET (FP) PO SCH (10:22)
[2016-08-20] MEDS: ATENOLOL 25 MG TABLET (FP) PO SCH (10:22)
[2016-08-20] MEDS: ASPIRIN 81 MG CHEWABLE TABLETS PO SCH (10:22)
[2016-08-20] MEDS: MEMANTINE HCL 10 MG TABLET (FP) PO SCH ×2 (10:22→21:37)
[2016-08-20] MEDS: ENOXAPARIN NA (PORCINE) 40 MG/0.4 ML DISP.SYRIN SQ SCH (10:22)
[2016-08-20] MEDS: LACTOBACILLUS ACIDOPHILUS 1 EACH TAB (FP) PO SCH (10:22)
[2016-08-20] MEDS: BRIMONIDINE TARTRATE 0.1% OPHTHALMIC 5 ML BOTTLE OU SCH ×2 (10:23→21:37)
[2016-08-20] MEDS: NAPH,MB-DB/K PH,MBDB POWDER PACKET PO SCH ×2 (10:23→21:38)
--- NOTE | 2016-08-20 12:56 | PN ---
Progress Note (short form) - Note Progress Note: Patient ween and examined Chart reviewed Currently sitting up in bed, alert at baseline dementia status, trying to feed herself. Switched today to oral UTI Rx Appears less lethargic. Denies new chest discomfort. Labs medications and planning consultant notes reviewed. Selected Entries 08/19/16 08/20/16 08/20/16 21:00 06:50 10:00 Temperature 97.6 F Pulse Rate 56 L Respiratory 20 Rate Blood Pressure 156/68 O2 Sat by Pulse 97 Oximetry (%) Oxygen Delivery Room Air Method Laboratory Tests 08/20/16 08/20/16 08/20/16 07:00 07:00 11:33 WBC 5.0 D Hgb 11.9 Hct 35.0 Plt Count 179 Sodium 148 H Potassium 3.5 Chloride 113 H Carbon Dioxide 26 BUN 11 D Creatinine 0.6 POC Glucometer 110 Random Glucose 108 H Calcium 8.7 Total Bilirubin 0.6 AST 15 ALT 13 Alkaline Phosphatase 80 D Total Protein 5.5 L Albumin 2.6 L Chest Clear Cor RRR Abd Soft non-tender Ext Pedal edema Neuro No new focal deficit Assessment and Plan UTI E coli [place] sensitive on levaquin Dementia Chronic stable Metabolic encephalopathy/weakness Likely related to UTI DM Stable ASHD Stable K+ 3.5 Replete Incontinence of bowel and bladder Continue current Rx Add K+ Possible discharge in AM pending social service arrangements
[2016-08-20] MEDS: metFORMIN HCL 500 MG TABLET (FP) PO SCH (17:52)
[2016-08-20] MEDS ORDERED: INSULIN (NOVOLOG) ASPART 100 UNITS/ML 10ML VIAL ONE (20:42)
[2016-08-20] MEDS: DONEPEZIL HCL 10 MG TABLET (FP) PO SCH (21:37)
[2016-08-20] MEDS: OLANZapine 5 MG TABLET PO SCH (21:37)
[2016-08-20] MEDS: POTASSIUM CHLORIDE TABS 20 MEQ TABLET.ER (FP) PO SCH (21:37)
[2016-08-20] MEDS: ATORVASTATIN CA 20 MG TABLET (FP) PO SCH (21:37)
[2016-08-21] MEDS: LEVOFLOXACIN 250 MG TABLET (FP) PO SCH (05:43)
[2016-08-21] MEDS: INSULIN SLIDING SCALE (NOVOLOG) 1 VIAL SQ SCH ×2 (06:06→11:57)
[2016-08-21] MEDS ORDERED: PT OWN MED DRAWER 7, Y5N ONE (08:41)
[2016-08-21 09:04] VITALS: BP 146/72; PULSE 56; TEMP 98.3
[2016-08-21] MEDS: POTASSIUM CHLORIDE TABS 20 MEQ TABLET.ER (FP) PO SCH (09:39)
[2016-08-21] MEDS: ASPIRIN 81 MG CHEWABLE TABLETS PO SCH (09:40)
[2016-08-21] MEDS: MEMANTINE HCL 10 MG TABLET (FP) PO SCH (09:40)
[2016-08-21] MEDS: ATENOLOL 25 MG TABLET (FP) PO SCH (09:40)
[2016-08-21] MEDS: NAPH,MB-DB/K PH,MBDB POWDER PACKET PO SCH (09:40)
[2016-08-21] MEDS: ENOXAPARIN NA (PORCINE) 40 MG/0.4 ML DISP.SYRIN SQ SCH (09:41)
[2016-08-21] MEDS: BRIMONIDINE TARTRATE 0.1% OPHTHALMIC 5 ML BOTTLE OU SCH (09:41)
[2016-08-21] MEDS: CLOPIDOGREL BISULFATE 75 MG TABLET (FP) PO SCH (09:41)
[2016-08-21] MEDS: LACTOBACILLUS ACIDOPHILUS 1 EACH TAB (FP) PO SCH (09:41)
--- NOTE | 2016-08-21 10:15 | DS ---
Physical Examination Vital Signs: Vital Signs Temperature 98.3 F 08/21/16 09:00 Pulse Rate 56 L 08/21/16 09:00 Respiratory Rate 18 08/21/16 09:00 Blood Pressure 146/72 08/21/16 09:00 O2 Sat by Pulse Oximetry (%) 95 08/20/16 21:00 Constitutional: Yes: No Distress, Calm Eyes: No: Sclera Icterus Cardiovascular: Yes: Regular Rate and Rhythm Respiratory: Yes: CTA Bilaterally Gastrointestinal: Yes: Normal Bowel Sounds, Soft. No: Tenderness Edema: LLE: Trace, RLE: Trace Neurological: Yes: Confusion Labs: CBC, BMP 08/20/16 07:00 08/20/16 07:00 Discharge Summary Reason For Visit: URINARY TRACT INFECTION Hospital Course: Please refer to daily notes Further decline in strength and cognition thought to be related to "toxic-metabolic" effect of UTI Treated with antibiotics and stable for discharge home Condition: Fair - Instructions Diet, Activity, Other Instructions: As tolerated Complete 3 more days of antibiotics Referrals: Harley Altman MD [Primary Care Provider] - Disposition: HOME - Home Medications Comprehensive Discharge Medication List: Ambulatory Orders Acetaminophen [Tylenol .Regular Strength -] 650 mg PO Q4H PRN #100 tablet Aspirin [ASA -] 81 mg PO DAILY #30 tab.chew 10/29/13 Atorvastatin Ca [Lipitor] 20 mg PO HS #30 tablet 10/29/13 Clopidogrel Bisulfate [Plavix -] 75 mg PO DAILY #30 tablet 10/29/13 Donepezil HCl [Aricept -] 10 mg PO HS #30 tablet 10/29/13 Memantine HCl [Namenda -] 10 mg PO BID #60 tablet 10/29/13 Metformin HCl [Glucophage -] 500 mg PO ACDIN #30 tablet 10/29/13 Atenolol [Tenormin -] 25 mg PO DAILY #30 tablet 06/20/14 Brimonidine Tartrate [Alphagan P 0.1% -] 1 drop OU BID drops 06/20/14 Olanzapine [Zyprexa -] 5 mg PO HS #30 tablet 06/20/14 Lactobacillus Acidophilus [Acidophilus Lactobacillus] 1 each PO DAILY 10 Days Levofloxacin [Levaquin -] 250 mg PO DAILY@0600 #3 tablet 08/21/16
== END 2016-08-21 11:46 | disposition home health service (06) | DRG 689 ==
LOC: JER 10:00 → JERBED 16:14 → J5S 21:26
PROVIDERS: ADMIT Internal Medicine; ATTEND Internal Medicine
DX: N30.00 Acute cystitis without hematuria (principal); G93.41 Metabolic encephalopathy; B96.20 Unspecified Escherichia coli [E. coli] as the cause of diseases classified elsewhere; G30.9 Alzheimer's disease, unspecified; F02.80 Dementia in other diseases classified elsewhere, unspecified severity, without behavioral disturbance, psychotic disturbance, mood disturbance, and anxiety; E11.9 Type 2 diabetes mellitus without complications; Z79.84 Long term (current) use of oral hypoglycemic drugs; E78.5 Hyperlipidemia, unspecified; I10 Essential (primary) hypertension; K58.9 Irritable bowel syndrome, unspecified; I25.10 Atherosclerotic heart disease of native coronary artery without angina pectoris; Z87.891 Personal history of nicotine dependence; R15.9 Full incontinence of feces; R32 Unspecified urinary incontinence
CPT/HCPCS: 36415; 70450-TC; 71010-TC; 80048; 80053; 81003; 81015; 82550; 82553; 83605; 83735; 84100; 84484; 85025; 85610; 85730; 86850; 86900; 86901; 87040; 87086; 87186; 93005; 93010; 94010; 97116-GP; 97161-GP; 99284-25

== ENCOUNTER 2016-08-23 08:00 | Inpatient (IN) | payer OTHER ==
[2016-08-23] MEDS ORDERED: SODIUM CHLORIDE 500 ML IV ONE (08:13)
--- NOTE | 2016-08-23 08:33 | PDOC ---
History of Present Illness - General History Source: Patient, Old Records Exam Limitations: No Limitations - History of Present Illness Initial Comments: 08/23/16 08:45 The patient is a 80 year old female brought via EMS, with a significant past medical history of HTN, HLD, NIDDM, Alzheimer's disease (A&O x 2 at baseline), diverticulosis, IBS, hemmoroids and MS (able to walk with assistance), who presents to the emergency department from home after a fall last night. She denies head trauma or loss of consciousness. She denies any kind of pain. The patient was last admitted to the hospital on 08/17/2016 for a UTI and discharged on 08/21/2016. The patient denies chest pain, shortness of breath, headache and dizziness. Denies fever, chills, nausea, vomit, diarrhea and constipation. Denies dysuria, frequency, urgency and hematuria. Allergies: NKA Past surgical history: Appendectomy, Femur surgery Social history: Nonsmoker. Denies EtOH use and recreational drug use. Lives with , has aide 5 days a week, for 6 hours. Primary Care Physician: [facility] Proxy: Eunice Urbina [phone] <Sanford De La Rosa - Last Filed: 08/23/16 10:41> <Macario Harris - Last Filed: 08/23/16 11:41> - General Chief Complaint: Lightheaded Stated Complaint: dizziness, lightheaded Time Seen by Provider: 08/23/16 08:07 Past History <Sanford De La Rosa - Last Filed: 08/23/16 10:41> - Past Medical History Anemia: No Asthma: No Cancer: No Cardiac Disorders: No CVA: No COPD: No CHF: No Dementia: Yes Diabetes: Yes GI Disorders: Yes (diverticulosis, IBS, hemmoroids) Disorders: No HTN: Yes Hypercholesterolemia: Yes Liver Disease: No Seizures: No Thyroid Disease: No - Surgical History Abdominal Surgery: No Appendectomy: Yes Cardiac Surgery: No Cholecystectomy: No Lung Surgery: No Neurologic Surgery: No Orthopedic Surgery: Yes (femur fx) - Immunization History Immunization Up to Date: Yes - Psycho/Social/Smoking Cessation Hx Anxiety: No Suicidal Ideation: No Smoking History: Unknown if ever smoked Have you smoked in the past 12 months: No If you are a former smoker, when did you quit?: 20 yrs ago Information on smoking cessation initiated: No Hx Alcohol Use: No Drug/Substance Use Hx: No Substance Use Type: None Hx Substance Use Treatment: No <Macario Harris - Last Filed: 08/23/16 11:41> - Past Medical History Allergies/Adverse Reactions: Allergies Allergy/AdvReac Type Severity Reaction Status Date / Time No Known Allergies Allergy Verified 08/23/16 08:27 Home Medications: Ambulatory Orders Acetaminophen [Tylenol .Regular Strength -] 650 mg PO Q4H PRN #100 tablet Aspirin [ASA -] 81 mg PO DAILY #30 tab.chew 10/29/13 Atorvastatin Ca [Lipitor] 20 mg PO HS #30 tablet 10/29/13 Clopidogrel Bisulfate [Plavix -] 75 mg PO DAILY #30 tablet 10/29/13 Donepezil HCl [Aricept -] 10 mg PO HS #30 tablet 10/29/13 Memantine HCl [Namenda -] 10 mg PO BID #60 tablet 10/29/13 Metformin HCl [Glucophage -] 500 mg PO ACDIN #30 tablet 10/29/13 Atenolol [Tenormin -] 25 mg PO DAILY #30 tablet 06/20/14 Brimonidine Tartrate [Alphagan P 0.1% -] 1 drop OU BID drops 06/20/14 Olanzapine [Zyprexa -] 5 mg PO HS #30 tablet 06/20/14 Lactobacillus Acidophilus [Acidophilus Lactobacillus] 1 each PO DAILY 10 Days Levofloxacin [Levaquin -] 250 mg PO DAILY@0600 #3 tablet 08/21/16 Review of Systems - Review of Systems Respiratory: No: Shortness of Breath Cardiac (ROS): No: Chest Pain ABD/GI: No: Diarrhea, Vomiting Neurological: No: Headache All Other Systems: Reviewed and Negative (limited to baseline dementia) <Macario Harris - Last Filed: 08/23/16 11:41> *Physical Exam - Vital Signs Last Vital Signs Temp Pulse Resp BP Pulse Ox 71 18 126/70 92 L 08/23/16 08:00 08/23/16 08:00 08/23/16 08:00 08/23/16 08:00 - Physical Exam Comments: 08/23/16 08:41 GENERAL: The patient is awake, alert, and fully oriented, in no acute distress. HEAD: Normal with no signs of trauma. EYES: Pupils equal, round and reactive to light, extraocular movements intact, sclera anicteric, conjunctiva clear with no pallor. ENT: Ears normal, nares patent, oropharynx clear without exudates. Moist mucous membranes. NECK: Normal range of motion, supple without lymphadenopathy, JVD, or masses. LUNGS: (+) Slightly decreased breath sounds at the left base with crackles HEART: Regular rate and rhythm, normal S1 and S2 without murmur or rub. ABDOMEN: Soft/nontender/nondistended. BS wnl. No guarding or rebound. No palpable masses. No hepatosplenomegaly. EXTREMITIES: (+) 1+ pitting edema bilaterally to the mid calf. Normal range of motion, no edema. No clubbing or cyanosis. No cords, erythema, or tenderness. NEUROLOGICAL: Cranial nerves II through XII grossly intact. Normal speech. PSYCH: Normal mood, normal affect. SKIN: Warm, Dry, normal turgor, no rashes or lesions noted. <Sanford De La Rosa - Last Filed: 08/23/16 10:41> - Vital Signs Last Vital Signs Temp Pulse Resp BP Pulse Ox 71 18 126/70 92 L 08/23/16 08:00 08/23/16 08:00 08/23/16 08:00 08/23/16 08:00 <Macario Harris - Last Filed: 08/23/16 11:41> Heart Score/ECG Review #1 ECG reviewed & interpreted by me at: 08:21 General ECG Interpretation: Sinus Rhythm, Normal Rate (68), Normal Intervals ( qtc 423, LAFB), No acute ischemic changes (diffuse T wave inversions, no ST changes) Compared to previous ECG there are: No significant change (c/w 08/17/16) <Macario Harris - Last Filed: 08/23/16 11:41> ED Treatment Course - LABORATORY CBC & Chemistry Diagram: 08/23/16 09:15 08/23/16 09:15 - RADIOLOGY Radiograph Interpretation: 08/23/16 10:11 Chest X-Ray Reviewed by: Dr. Martin Spivey Impression: Left basilar consolidation and small pleural effusion. Head CT Reviewed by: Dr. James Akers Impression: Normal noncontrast CT o the brain except for involutional and periventricular white matter changes. <GeetoyinSanford Kelsey - Last Filed: 08/23/16 10:41> - LABORATORY CBC & Chemistry Diagram: 08/23/16 09:15 08/23/16 09:15 - RADIOLOGY Radiology Studies Ordered: Category Date Time Status CHEST X-RAY PORTABLE* [RAD] Stat Radiology 08/23/16 08:13 Ordered <Macario Harris - Last Filed: 08/23/16 11:41> Medical Decision Making - Medical Decision Making 08/23/16 09:11 A portion of this note was documented by scribe services under my direction. I have reviewed the details of the note, within reason, and agree with the documentation with the following case summary and management plan written by me. 80-year-old female with multiple medical problems including recent admission for UTI discharged 2 days ago presents brought in by EMS after reported fall last night. Patient has baseline dementia, endorses no complaints whatsoever. A+ O times one, which appears to be her baseline. O2 sat 92% on room air, afebrile 99.1 rectally Atraumatic, neuro intact decreased BS with crackles at L base b/l leg edema 80-year-old female with baseline dementia, recent admission for UTI discharged 48 hours ago now presents status post fall also with some evidence of volume overload, low O2 sat on room air with abnormal breath sounds at the left base, question fluid versus infection. Also with bilateral leg edema. Labs, urinalysis CT head to rule out injury, no other focal findings suggestive of trauma EKG Reassess, may require diuresis and supplemental oxygen 08/23/16 10:30 White count 10.5 with normal differential, pH normal, CT head without injury, chest x-ray with left base consolidation and possible pleural effusion. Given the rise in her white count compared to 2 days ago and the relative hypoxia, will cover empirically for hospital-acquired pneumonia with vancomycin and Zosyn , awaiting chemistries and will likely require readmission. 08/23/16 11:11 Chem wnl, persistent slight hypernatremia but normal Cr and Trop. Clinically unchanged, O2 improved with supplemental oxygen, will admit to [facility]. <Macario Harris - Last Filed: 08/23/16 11:41> *DC/Admit/Observation/Transfer - Attestations Scribe Attestion: 08/23/16 08:42 Documentation prepared by Sanford De La Rosa, acting as medical office specialist for Macario Harris MD <Sanford De La Rosa - Last Filed: 08/23/16 10:41> - Discharge Dispostion Admit: Yes <Macario Harris - Last Filed: 08/23/16 11:41> Diagnosis at time of Disposition: Lung consolidation Fall Qualifiers: Encounter type: initial encounter Qualified Code(s): W19.XXXA - Unspecified fall, initial encounter - Discharge Dispostion Condition at time of disposition: Fair - Referrals Referrals: Harley Altman MD [Primary Care Provider] -
[2016-08-23 08:37] VITALS: BMI 22.3
[2016-08-23 09:21] LABS: VENOUS PH 7.38 (7.32-7.42)
[2016-08-23 09:22] LABS: VENOUS BLOOD GAS HCO3 25.9 meq/L (19-25)
[2016-08-23 09:56] LABS: BASOPHIL 0.5 % (0-2.0); INR 1.15 (0.82-1.09); MCH 32.8 pg (25.7-33.7); MCHC 33.6 g/dl (32.0-36.0); MEAN CELL VOLUME 97.6 fl (80-96); MEAN PLT VOLUME 7.1 fl (7.5-11.1); PLATELET COUNT 244 K/MM3 (134-434); PROTHROMBIN TIME (PATIENT) 12.7 SEC (9.98-11.88); RDW 12.6 % (11.6-15.6); WHITE BLOOD COUNT 10.5 K/mm3 (4.0-10.0)
[2016-08-23 09:59] LABS: ACTIVATED PTT 30.4 SECONDS (26.9-34.4)
[2016-08-23 10:07] LABS: ANION GAP 9 (8-16); BILIRUBIN,TOTAL 0.4 mg/dL (0.2-1.0); CALCIUM 9.2 mg/dL (8.5-10.1); CO2 26 mmol/L (21-32); CREATININE 0.7 mg/dL (0.55-1.02); GLUCOSE,RANDOM 118 mg/dL (74-106); SGOT/AST 21 U/L (15-37); SGPT/ALT 19 U/L (12-78); TOT PROT 6.3 g/dl (6.4-8.2)
[2016-08-23 10:10] LABS: ALK PHOS 95 U/L (45-117); TROPONIN I < 0.02 ng/ml (0.00-0.05)
[2016-08-23] MEDS ORDERED: PIPERACILLIN/TAZOB 3.375 GM/50 ML PRE-DOCKED IVPB ONE ×2 (10:29→19:00)
[2016-08-23] MEDS ORDERED: VANCOMYCIN 1,000 MG in DEXTROSE 5%-WATER - 250 ML IVPB ONE (10:29)
[2016-08-23] MEDS ORDERED: VANCOMYCIN 1 GRAM (PRE-DOCKED) 250 ML IVPB ONE (11:53)
[2016-08-23] MEDS ORDERED: PIPERACILLIN/TAZOB 3.375 GM 50 ML IVPB ONE (11:53)
[2016-08-23 12:23] LABS: URINE APPEARANCE CLEAR; URINE BILIRUBIN NEGATIVE (NEGATIVE); URINE BLOOD NEGATIVE (NEGATIVE); URINE COLOR LTYELLOW; URINE GLUCOSE (UA) NEGATIVE (NEGATIVE); URINE KETONE NEGATIVE (NEGATIVE); URINE LEUK ESTERASE NEGATIVE (NEGATIVE); URINE NITRITE NEGATIVE (NEGATIVE); URINE PROTEIN NEGATIVE (NEGATIVE); URINE UROBILINOGEN NEGATIVE E.U./dl (0.2-1.0)
[2016-08-23] MEDS ORDERED: ACETAMINOPHEN 325 MG TABLET (FP) PO PRN (13:46)
--- NOTE | 2016-08-23 14:39 | EKG ---
Test Reason : Blood Pressure : / mmHG Vent. Rate : 068 BPM Atrial Rate : 068 BPM P-R Int : 142 ms QRS Dur : 112 ms QT Int : 398 ms P-R-T Axes : 058 -43 153 degrees QTc Int : 423 ms NORMAL SINUS RHYTHM LEFT AXIS DEVIATION SEPTAL INFARCT (CITED ON OR BEFORE 21-OCT-2013) ABNORMAL ECG WHEN COMPARED WITH ECG OF 17-AUG-2016 11:00, NO SIGNIFICANT CHANGE WAS FOUND Confirmed by JANETH VIVAR, CHRISTOPHER ([id number]) on 08/23/2016 2:38:40 PM Referred By: Confirmed By:CHRISTOPHER FOWLER MD
[2016-08-23] MEDS ORDERED: CLOPIDOGREL BISULFATE 75 MG TABLET (FP) ONE (17:12)
[2016-08-23] MEDS ORDERED: metFORMIN HCL 500 MG TABLET (FP) ONE (17:12)
[2016-08-23] MEDS: CLOPIDOGREL BISULFATE 75 MG TABLET (FP) PO SCH (17:14)
[2016-08-23] MEDS: metFORMIN HCL 500 MG TABLET (FP) PO SCH (17:15)
--- NOTE | 2016-08-23 17:40 | HP ---
CHIEF COMPLAINT: s/p fall PCP: Dr. Altman HISTORY OF PRESENT ILLNESS: The patient is a 80 year old female brought via EMS, with a significant past medical history of HTN, HLD, NIDDM, Alzheimer's disease (A&O x 2 at baseline), diverticulosis, IBS, hemorrhoids and MS (able to walk with assistance), who presents to the emergency department from home after a fall last night. She denies head trauma or loss of consciousness or any kind of pain. The patient was recently admitted to the hospital from 08/17/2016 to 08/21/2016 for UTI. Health Care Proxy: Eunice Urbina [phone], Lives with , has aide 5 days a week, for 6 hours. ER course was notable for: (1) CT head - No acute pathology (2) CxR: Left basilar consolidation and small pleural effusion (3) Lab: wbc 10.5, Temp 99.1,Na 147 (4)- EKG - SR Recent Travel: No PAST MEDICAL HISTORY: see above PAST SURGICAL HISTORY: Appendectomy, Femur surgery, Cataract Removal (bilateral) Social History: Smoking:No Alcohol:No Drugs: No Family History: Allergies No Known Allergies Allergy (Verified 08/23/16 08:27) HOME MEDICATIONS: Home Medications Medication Instructions Recorded Acetaminophen [Tylenol .Regular 650 mg PO Q4H PRN #100 tablet 10/29/13 Strength -] Aspirin [ASA -] 81 mg PO DAILY #30 tab.chew 10/29/13 Atorvastatin Ca [Lipitor] 20 mg PO HS #30 tablet 10/29/13 Clopidogrel Bisulfate [Plavix -] 75 mg PO DAILY #30 tablet 10/29/13 Donepezil HCl [Aricept -] 10 mg PO HS #30 tablet 10/29/13 Memantine HCl [Namenda -] 10 mg PO BID #60 tablet 10/29/13 Metformin HCl [Glucophage -] 500 mg PO ACDIN #30 tablet 10/29/13 Atenolol [Tenormin -] 25 mg PO DAILY #30 tablet 06/20/14 Brimonidine Tartrate [Alphagan P 1 drop OU BID drops 06/20/14 0.1% -] Olanzapine [Zyprexa -] 5 mg PO HS #30 tablet 06/20/14 Lactobacillus Acidophilus 1 each PO DAILY 10 Days 05/15/15 [Acidophilus Lactobacillus] Levofloxacin [Levaquin -] 250 mg PO DAILY@0600 #3 tablet 08/21/16 REVIEW OF SYSTEMS CONSTITUTIONAL: Absent: fever, chills, diaphoresis, generalized weakness, malaise, loss of appetite, weight change HEENT: Absent: rhinorrhea, nasal congestion, throat pain, throat swelling, difficulty swallowing, mouth swelling, ear pain, eye pain, visual changes CARDIOVASCULAR: Absent: chest pain, syncope, palpitations, irregular heart rate, lightheadedness , peripheral edema RESPIRATORY: Absent: cough, shortness of breath, dyspnea with exertion, orthopnea, wheezing, stridor, hemoptysis GASTROINTESTINAL: Absent: abdominal pain, abdominal distension, nausea, vomiting, diarrhea, constipation, melena, hematochezia GENITOURINARY: Absent: dysuria, frequency, urgency, hesitancy, hematuria, flank pain, genital pain MUSCULOSKELETAL: Absent: myalgia, arthralgia, joint swelling, back pain, neck pain SKIN: Absent: rash, itching, pallor HEMATOLOGIC/IMMUNOLOGIC: Absent: easy bleeding, easy bruising, lymphadenopathy, frequent infections ENDOCRINE: Absent: unexplained weight gain, unexplained weight loss, heat intolerance, cold intolerance NEUROLOGIC: Absent: headache, focal weakness or paresthesias, dizziness, unsteady gait, seizure, mental status changes, bladder or bowel incontinence PSYCHIATRIC: Absent: anxiety, depression, suicidal or homicidal ideation, hallucinations. PHYSICAL EXAMINATION GENERAL: Awake, alert,responsive by remains confused HEAD: Normal with no signs of trauma. EYES: Pupils equal, round and reactive to light, extraocular movements intact, sclera anicteric, conjunctiva clear. No lid lag. EARS, NOSE, THROAT: Ears normal, nares patent, oropharynx clear without exudates. Moist mucous membranes. NECK: Normal range of motion, supple without lymphadenopathy, JVD, or masses. LUNGS: Breath sounds equal, clear to auscultation bilaterally. No wheezes, and no crackles. No accessory muscle use. HEART: Regular rate and rhythm, normal S1 and S2 without murmur, rub or gallop. ABDOMEN: Soft, nontender, not distended, normoactive bowel sounds, no guarding, no rebound, no masses. No hepatomegaly or splenomegaly. MUSCULOSKELETAL: Normal range of motion at all joints. No bony deformities or tenderness. No CVA tenderness. UPPER EXTREMITIES: 2+ pulses, warm, well-perfused. No cyanosis. No clubbing. No peripheral edema. LOWER EXTREMITIES: 2+ pulses, warm, well-perfused. No calf tenderness,mild pitting edema. NEUROLOGICAL: Cranial nerves II-XII intact. Normal speech, confused gait not tested PSYCHIATRIC: restless, confused , trying to get out of bed SKIN: Warm, dry, normal turgor, no rashes or lesions noted, normal capillary refill. Laboratory Results - last 24 hr 08/23/16 11:43 Urine Color Ltyellow Urine Appearance Clear Urine pH 5.0 Urine Protein Negative Urine Glucose (UA) Negative Urine Ketones Negative Urine Blood Negative Urine Nitrite Negative Urine Bilirubin Negative Urine Urobilinogen Negative Ur Leukocyte Esterase Negative ASSESSMENT/PLAN: The patient is an 80 year old female with multiple medical problem, admitted with ? pneumonia and s/p fall. * S/p fall at home, unwitnessed - no trauma noted - CT Head- negative - PT eval ordered - SW consult ordered for safe discharge disposition * Poss pneumonia vs pleural effusion - will cont on Van /Zosyn - mild leukocytosis - BC pending * Hx of UTI - s/p abx tx - UA negative - Urine culture pending *Alzheimer's/dementia with confusion/restlessness - will cont on home meds - VEST restraint for now and re-evaluate - release Q2H * Hx of ASHD/HTN/HDL -continue home regimen *Diabetes - will cont on home meds -diabetic diet -continue home dose metformin -FS monitoring * F/E/N; S/P IVF, will continue on consistent carbohydrate diet * VTE : Heparin sq Visit type - Emergency Visit Emergency Visit: Yes ED Registration Date: 08/23/16 Care time: The patient presented to the Emergency Department on the above date and was hospitalized for further evaluation of their emergent condition. - New Patient This patient is new to me today: Yes Date on this admission: 08/23/16 - Critical Care Critical Care patient: No
[2016-08-23] MEDS ORDERED: PIPERACILLIN/TAZOB 3.375 GM 3.375 GM in DEXTROSE 5%-WATER - 50 ML IVPB SCH (19:00)
[2016-08-23] MEDS ORDERED: VANCOMYCIN 1,250 MG in DEXTROSE 5%-WATER - 250 ML IVPB ONE (19:00)
[2016-08-23] MEDS ORDERED: PIPERACILLIN/TAZOB 4.5 GM 100 ML IVPB ONE (19:24)
--- NOTE | 2016-08-23 20:09 | CONSULT ---
Consult Consult Specialty:: infectious diseases Reason for Consultation:: ams - History of Present Illness History of Present Illness: patient unable to give any history she is confused --do not know if this is her baseline says to everything she is fine looks comfortable notes taken from the charts The patient is a 80 year old female brought via EMS, with a significant past medical history of HTN, HLD, NIDDM, Alzheimer's disease (A&O x 2 at baseline), diverticulosis, IBS, hemorrhoids and MS (able to walk with assistance), admitted with fall last night. She denies head trauma or loss of consciousness or any kind of pain. 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: Alzheimer's (Mild (on Aricept and Namenda)), Other (Possible demyelinating disorder (sees Dr Barajas)) Cardio/Vascular: Yes: CAD, Hyperlipdemia, Other (H/O PVCs Sinus tachycardia) Gastrointestinal: Yes: Diverticulosis, Hemorrhoids, Irritable Bowel Disease Renal/: Yes: UTI (H/O) Musculoskeletal: Yes: Osteoarthritis Endocrine: Yes: Diabetes Mellitus - Past Surgical History Past Surgical History: Yes: Appendectomy, Cataract Removal (bilateral) - Alcohol/Substance Use Hx Alcohol Use: No History of Substance Use: reports: None - Smoking History Smoking history: Unknown if ever smoked Have you smoked in the past 12 months: No If you are a former smoker, when did you quit?: 20 yrs ago - Social History ADL: Support Services History of Recent Travel: No Home Medications - Allergies Allergies/Adverse Reactions: Allergies Allergy/AdvReac Type Severity Reaction Status Date / Time No Known Allergies Allergy Verified 08/23/16 08:27 - Home Medications Home Medications: Ambulatory Orders Acetaminophen [Tylenol .Regular Strength -] 650 mg PO Q4H PRN #100 tablet Aspirin [ASA -] 81 mg PO DAILY #30 tab.chew 10/29/13 Atorvastatin Ca [Lipitor] 20 mg PO HS #30 tablet 10/29/13 Clopidogrel Bisulfate [Plavix -] 75 mg PO DAILY #30 tablet 10/29/13 Donepezil HCl [Aricept -] 10 mg PO HS #30 tablet 10/29/13 Memantine HCl [Namenda -] 10 mg PO BID #60 tablet 10/29/13 Metformin HCl [Glucophage -] 500 mg PO ACDIN #30 tablet 10/29/13 Atenolol [Tenormin -] 25 mg PO DAILY #30 tablet 06/20/14 Brimonidine Tartrate [Alphagan P 0.1% -] 1 drop OU BID drops 06/20/14 Olanzapine [Zyprexa -] 5 mg PO HS #30 tablet 06/20/14 Lactobacillus Acidophilus [Acidophilus Lactobacillus] 1 each PO DAILY 10 Days Levofloxacin [Levaquin -] 250 mg PO DAILY@0600 #3 tablet 08/21/16 Review of Systems Unable to obtain ROS, reason: unable to obtain Physical Exam Vital Signs: Vital Signs Temperature 98.1 F 08/23/16 20:04 Pulse Rate 56 L 08/23/16 20:04 Respiratory Rate 16 08/23/16 20:04 Blood Pressure 139/63 08/23/16 20:04 O2 Sat by Pulse Oximetry (%) 95 08/23/16 20:04 Constitutional: Yes: Well Nourished, Calm Eyes: Yes: Conjunctiva Clear HENT: Yes: Atraumatic Neck: Yes: Supple Cardiovascular: Yes: S1, S2 Respiratory: Yes: Regular, CTA Bilaterally Gastrointestinal: Yes: Normal Bowel Sounds, Soft Musculoskeletal: Yes: WNL Extremities: Yes: WNL Neurological: Yes: Alert, Other Psychiatric: Yes: Other (restless) Imaging - Results Chest X-ray: Report Reviewed, Image Reviewed Cat Scan: Report Reviewed, Image Reviewed Assessment/Plan the way patient presented here is high chance that patient could have urinary tract infection also her left lung shows some consolidation Problem List - Problems (1) Fall Code(s): W19.XXXA - UNSPECIFIED FALL, INITIAL ENCOUNTER Qualifiers: Encounter type: initial encounter Qualified Code(s): W19.XXXA - Unspecified fall, initial encounter (2) Lung consolidation Code(s): J18.1 - LOBAR PNEUMONIA, UNSPECIFIED ORGANISM (3) Dementia Code(s): F03.90 - UNSPECIFIED DEMENTIA WITHOUT BEHAVIORAL DISTURBANCE (4) Diabetes Code(s): E11.9 - TYPE 2 DIABETES MELLITUS WITHOUT COMPLICATIONS Qualifiers: Diabetes mellitus type: type 2 Diabetes mellitus complication status: without complication (5) ASHD (arteriosclerotic heart disease) Code(s): I25.10 - ATHSCL HEART DISEASE OF [place] CORONARY ARTERY W/O ANG PCTRS (6) HLD (hyperlipidemia) Code(s): E78.5 - HYPERLIPIDEMIA, UNSPECIFIED patient has got a dose of vanco and zosyn plan will stop vanco will continue zosyn close watch physio rest as per priamry team
[2016-08-23] MEDS: DONEPEZIL HCL 10 MG TABLET (FP) PO SCH (21:50)
[2016-08-23] MEDS: HEPARIN NA (PORCINE) 5,000 UNITS/ML 1ML VIAL SQ SCH (21:50)
[2016-08-23] MEDS: ATORVASTATIN CA 20 MG TABLET (FP) PO SCH (21:50)
[2016-08-23] MEDS: MEMANTINE HCL 10 MG TABLET (FP) PO SCH (21:50)
[2016-08-23] MEDS: OLANZapine 5 MG TABLET PO SCH (23:03)
[2016-08-23] MEDS: BRIMONIDINE TARTRATE 0.1% OPHTHALMIC 5 ML BOTTLE OU SCH (23:03)
[2016-08-24] MEDS ORDERED: PIPERACILLIN/TAZOB 3.375 GM/50 ML PRE-DOCKED IVPB SCH (02:00)
[2016-08-24] MEDS: PIPERACILLIN/TAZOB 3.375 GM 50 ML IVPB SCH ×3 (02:04→17:00)
[2016-08-24] MEDS ORDERED: PT OWN MED DRAWER 7, Y5N ONE ×2 (06:24→10:04)
[2016-08-24 07:43] LABS: BASOPHIL 0.5 % (0-2.0); EOSINOPHIL 3.3 % (0-4.5); MCH 33.3 pg (25.7-33.7); MCHC 34.4 g/dl (32.0-36.0); MEAN CELL VOLUME 96.8 fl (80-96); NEUTROPHILS 64.5 % (42.8-82.8); PLATELET COUNT 217 K/MM3 (134-434); RDW 12.4 % (11.6-15.6); WHITE BLOOD COUNT 6.3 K/mm3 (4.0-10.0)
[2016-08-24 08:07] LABS: ANION GAP 8 (8-16); CALCIUM 8.6 mg/dL (8.5-10.1); CO2 29 mmol/L (21-32); CREATININE 0.6 mg/dL (0.55-1.02); GLUCOSE,RANDOM 101 mg/dL (74-106)
[2016-08-24] MEDS ORDERED: VANCOMYCIN 1,250 MG in DEXTROSE 5%-WATER - 250 ML IVPB ONE (10:00)
[2016-08-24] MEDS ORDERED: VANCOMYCIN 1,250 MG in DEXTROSE 5%-WATER - 250 ML IVPB SCH (10:00)
[2016-08-24] MEDS: MEMANTINE HCL 10 MG TABLET (FP) PO SCH ×2 (10:43→22:22)
[2016-08-24] MEDS: CLOPIDOGREL BISULFATE 75 MG TABLET (FP) PO SCH (10:43)
[2016-08-24] MEDS: HEPARIN NA (PORCINE) 5,000 UNITS/ML 1ML VIAL SQ SCH ×2 (10:43→22:21)
[2016-08-24] MEDS: ASPIRIN 81 MG CHEWABLE TABLETS PO SCH (10:43)
[2016-08-24] MEDS: ATENOLOL 50 MG TABLET (FP) PO SCH (10:43)
[2016-08-24] MEDS: BRIMONIDINE TARTRATE 0.1% OPHTHALMIC 5 ML BOTTLE OU SCH ×2 (10:44→22:21)
--- NOTE | 2016-08-24 14:06 | PN ---
Progress Note, Physician Chief Complaint: Ms Urbina says she feels fine. She denies fevers, chest pain, shortness of breath , nausea/vomiting. She says her appetite is good and she does not know why she is here. - Current Medication List Current Medications: Active Medications Acetaminophen (Tylenol -) 650 mg PO Q4H PRN PRN Reason: FEVER OR PAIN Last Admin: 08/23/16 21:50 Dose: 650 mg Aspirin (Asa -) 81 mg PO DAILY [facility] Last Admin: 08/24/16 10:43 Dose: 81 mg Atenolol (Tenormin -) 25 mg PO DAILY [facility] Last Admin: 08/24/16 10:43 Dose: 25 mg Atorvastatin Calcium (Lipitor -) 20 mg PO HS [facility] Last Admin: 08/23/16 21:50 Dose: 20 mg Brimonidine Tartrate (Alphagan P 0.1% -) 1 drop OU BID [facility] Last Admin: 08/24/16 10:44 Dose: 1 drop Clopidogrel Bisulfate (Plavix -) 75 mg PO DAILY [facility] Last Admin: 08/24/16 10:43 Dose: 75 mg Donepezil HCl (Aricept -) 10 mg PO HS [facility] Last Admin: 08/23/16 21:50 Dose: 10 mg Heparin Sodium (Porcine) (Heparin -) 5,000 unit SQ BID [facility] Last Admin: 08/24/16 10:43 Dose: 5,000 unit Vancomycin HCl 1,250 mg/ (Dextrose) 250 mls @ 250 mls/hr IVPB DAILY [facility] PRN Reason: Protocol Piperacillin Sod/Tazobactam Sod (Zosyn 3.375gm Ivpb (Pre-Docked)) 50 mls @ 100 mls/hr IVPB Q8H-IV [facility] PRN Reason: Protocol Last Admin: 08/24/16 10:44 Dose: 100 mls/hr Memantine (Namenda -) 10 mg PO BID [facility] Last Admin: 08/24/16 10:43 Dose: 10 mg Metformin HCl (Glucophage -) 500 mg PO ACDIN [facility] Last Admin: 08/23/16 17:15 Dose: 500 mg Olanzapine (Zyprexa -) 5 mg PO HS [facility] Last Admin: 08/23/16 23:03 Dose: 5 mg - Objective Vital Signs: Vital Signs Temperature 97.5 F L 08/24/16 05:30 Pulse Rate 60 08/24/16 05:30 Respiratory Rate 18 08/24/16 05:30 Blood Pressure 141/66 08/24/16 05:30 O2 Sat by Pulse Oximetry (%) 95 08/24/16 06:07 Constitutional: Yes: Well Nourished, No Distress, Calm Cardiovascular: Yes: Regular Rate and Rhythm. No: Gallop, Murmur, Rub Respiratory: Yes: Regular, CTA Bilaterally. No: Rales, Rhonchi, Wheezes Gastrointestinal: Yes: Normal Bowel Sounds, Soft. No: Distention, Tenderness Extremities: Yes: WNL Edema: No Labs: CBC, BMP 08/24/16 06:00 08/24/16 06:00 INR, PTT INR 1.15 (0.82-1.09) H 08/23/16 09:15 Problem List - Problems (1) Fall Assessment/Plan: -patient with mechanical fall -PT consulted -will need SNF placement Code(s): W19.XXXA - UNSPECIFIED FALL, INITIAL ENCOUNTER Qualifiers: Encounter type: initial encounter Qualified Code(s): W19.XXXA - Unspecified fall, initial encounter (2) Lung consolidation Assessment/Plan: -? if pneumonia -leukocytosis on admission, but may be secondary to dehydration as all cell lines decreased with hydration and now normal -reviewed chest x-ray and read -continue vancomycin and zosyn currently, will discuss with ID Code(s): J18.1 - LOBAR PNEUMONIA, UNSPECIFIED ORGANISM (3) Dementia Assessment/Plan: -at baseline -continue home medication regimen Code(s): F03.90 - UNSPECIFIED DEMENTIA WITHOUT BEHAVIORAL DISTURBANCE (4) Diabetes Assessment/Plan: -continue metformin Code(s): E11.9 - TYPE 2 DIABETES MELLITUS WITHOUT COMPLICATIONS Qualifiers: Diabetes mellitus type: type 2 Diabetes mellitus complication status: without complication (5) ASHD (arteriosclerotic heart disease) Assessment/Plan: -quiescent -continue plavix, lipitor, atenolol, and aspirin Code(s): I25.10 - ATHSCL HEART DISEASE OF [place] CORONARY ARTERY W/O ANG PCTRS (6) HLD (hyperlipidemia) Assessment/Plan: -continue lipitor Code(s): E78.5 - HYPERLIPIDEMIA, UNSPECIFIED
--- NOTE | 2016-08-24 14:55 | PN ---
Progress Note, Physician History of Present Illness: patient calm it seems patient was restless at night now calm' her confusion still present - Current Medication List Current Medications: Active Medications Acetaminophen (Tylenol -) 650 mg PO Q4H PRN PRN Reason: FEVER OR PAIN Last Admin: 08/23/16 21:50 Dose: 650 mg Aspirin (Asa -) 81 mg PO DAILY [facility] Last Admin: 08/24/16 10:43 Dose: 81 mg Atenolol (Tenormin -) 25 mg PO DAILY [facility] Last Admin: 08/24/16 10:43 Dose: 25 mg Atorvastatin Calcium (Lipitor -) 20 mg PO HS [facility] Last Admin: 08/23/16 21:50 Dose: 20 mg Brimonidine Tartrate (Alphagan P 0.1% -) 1 drop OU BID [facility] Last Admin: 08/24/16 10:44 Dose: 1 drop Clopidogrel Bisulfate (Plavix -) 75 mg PO DAILY [facility] Last Admin: 08/24/16 10:43 Dose: 75 mg Donepezil HCl (Aricept -) 10 mg PO HS [facility] Last Admin: 08/23/16 21:50 Dose: 10 mg Heparin Sodium (Porcine) (Heparin -) 5,000 unit SQ BID [facility] Last Admin: 08/24/16 10:43 Dose: 5,000 unit Vancomycin HCl 1,250 mg/ (Dextrose) 250 mls @ 250 mls/hr IVPB DAILY [facility] PRN Reason: Protocol Piperacillin Sod/Tazobactam Sod (Zosyn 3.375gm Ivpb (Pre-Docked)) 50 mls @ 100 mls/hr IVPB Q8H-IV [facility] PRN Reason: Protocol Last Admin: 08/24/16 10:44 Dose: 100 mls/hr Memantine (Namenda -) 10 mg PO BID [facility] Last Admin: 08/24/16 10:43 Dose: 10 mg Metformin HCl (Glucophage -) 500 mg PO ACDIN [facility] Last Admin: 08/23/16 17:15 Dose: 500 mg Olanzapine (Zyprexa -) 5 mg PO HS [facility] Last Admin: 08/23/16 23:03 Dose: 5 mg - Objective Vital Signs: Vital Signs Temperature 97.6 F 08/24/16 14:19 Pulse Rate 51 L 08/24/16 14:19 Respiratory Rate 20 08/24/16 14:19 Blood Pressure 115/65 08/24/16 14:19 O2 Sat by Pulse Oximetry (%) 95 08/24/16 09:00 Constitutional: Yes: No Distress, Calm Cardiovascular: Yes: Regular Rate and Rhythm Respiratory: Yes: Regular, Other (decreased air entry lef side) Gastrointestinal: Yes: Normal Bowel Sounds, Soft Musculoskeletal: Yes: WNL Extremities: Yes: WNL Neurological: Yes: Alert, Other Psychiatric: Yes: Alert Labs: CBC, BMP 08/24/16 06:00 08/24/16 06:00 INR, PTT INR 1.15 (0.82-1.09) H 08/23/16 09:15 Assessment/Plan the way patient presented here is high chance that patient could have urinary tract infection also her left lung shows some consolidation Problem List - Problems (1) Fall Code(s): W19.XXXA - UNSPECIFIED FALL, INITIAL ENCOUNTER Qualifiers: Encounter type: initial encounter Qualified Code(s): W19.XXXA - Unspecified fall, initial encounter (2) Lung consolidation Code(s): J18.1 - LOBAR PNEUMONIA, UNSPECIFIED ORGANISM (3) Dementia Code(s): F03.90 - UNSPECIFIED DEMENTIA WITHOUT BEHAVIORAL DISTURBANCE (4) Diabetes Code(s): E11.9 - TYPE 2 DIABETES MELLITUS WITHOUT COMPLICATIONS Qualifiers: Diabetes mellitus type: type 2 Diabetes mellitus complication status: without complication (5) ASHD (arteriosclerotic heart disease) Code(s): I25.10 - ATHSCL HEART DISEASE OF [place] CORONARY ARTERY W/O ANG PCTRS (6) HLD (hyperlipidemia) Code(s): E78.5 - HYPERLIPIDEMIA, UNSPECIFIED all cx report noted plan continue zosyn rest as per primary team monitor mental status once at baseline will switch to oral
[2016-08-24] MEDS: metFORMIN HCL 500 MG TABLET (FP) PO SCH (16:53)
[2016-08-24] MEDS: DONEPEZIL HCL 10 MG TABLET (FP) PO SCH (22:21)
[2016-08-24] MEDS: ATORVASTATIN CA 20 MG TABLET (FP) PO SCH (22:21)
[2016-08-24] MEDS: OLANZapine 5 MG TABLET PO SCH (22:22)
[2016-08-25] MEDS: PIPERACILLIN/TAZOB 3.375 GM 50 ML IVPB SCH ×2 (01:09→11:41)
[2016-08-25 07:30] LABS: BASOPHIL 0.9 % (0-2.0); EOSINOPHIL 4.3 % (0-4.5); MCHC 34.2 g/dl (32.0-36.0); MEAN CELL VOLUME 96.6 fl (80-96); MEAN PLT VOLUME 6.8 fl (7.5-11.1); NEUTROPHILS 67.1 % (42.8-82.8); PLATELET COUNT 229 K/MM3 (134-434); RDW 12.6 % (11.6-15.6); WHITE BLOOD COUNT 6.6 K/mm3 (4.0-10.0)
[2016-08-25 07:57] LABS: ANION GAP 9 (8-16); CALCIUM 8.9 mg/dL (8.5-10.1); CO2 29 mmol/L (21-32); CREATININE 0.7 mg/dL (0.55-1.02); GLUCOSE,RANDOM 101 mg/dL (74-106); MAGNESIUM 2.2 mg/dL (1.8-2.4); PHOSPHOROUS 2.9 mg/dL (2.5-4.9)
[2016-08-25] MEDS ORDERED: PT OWN MED DRAWER 7, Y5N ONE ×2 (11:32→20:51)
[2016-08-25] MEDS: CLOPIDOGREL BISULFATE 75 MG TABLET (FP) PO SCH (11:42)
[2016-08-25] MEDS: ATENOLOL 50 MG TABLET (FP) PO SCH (11:42)
[2016-08-25] MEDS: HEPARIN NA (PORCINE) 5,000 UNITS/ML 1ML VIAL SQ SCH ×2 (11:43→22:18)
[2016-08-25] MEDS: MEMANTINE HCL 10 MG TABLET (FP) PO SCH ×2 (11:43→22:17)
[2016-08-25] MEDS: ASPIRIN 81 MG CHEWABLE TABLETS PO SCH (11:43)
[2016-08-25] MEDS: BRIMONIDINE TARTRATE 0.1% OPHTHALMIC 5 ML BOTTLE OU SCH ×2 (11:44→22:17)
--- NOTE | 2016-08-25 13:00 | PN ---
Progress Note, Physician Chief Complaint: Ms Urbina says she feels fair. Will not answer further questions as I am seeing her while she is receiving a heparin shot. - Current Medication List Current Medications: Active Medications Acetaminophen (Tylenol -) 650 mg PO Q4H PRN PRN Reason: FEVER OR PAIN Last Admin: 08/23/16 21:50 Dose: 650 mg Aspirin (Asa -) 81 mg PO DAILY [facility] Last Admin: 08/25/16 11:43 Dose: 81 mg Atenolol (Tenormin -) 25 mg PO DAILY [facility] Last Admin: 08/25/16 11:42 Dose: 25 mg Atorvastatin Calcium (Lipitor -) 20 mg PO HS [facility] Last Admin: 08/24/16 22:21 Dose: 20 mg Brimonidine Tartrate (Alphagan P 0.1% -) 1 drop OU BID [facility] Last Admin: 08/25/16 11:44 Dose: 1 drop Clopidogrel Bisulfate (Plavix -) 75 mg PO DAILY [facility] Last Admin: 08/25/16 11:42 Dose: 75 mg Donepezil HCl (Aricept -) 10 mg PO HS [facility] Last Admin: 08/24/16 22:21 Dose: 10 mg Heparin Sodium (Porcine) (Heparin -) 5,000 unit SQ BID [facility] Last Admin: 08/25/16 11:43 Dose: 5,000 unit Vancomycin HCl 1,250 mg/ (Dextrose) 250 mls @ 250 mls/hr IVPB DAILY [facility] PRN Reason: Protocol Piperacillin Sod/Tazobactam Sod (Zosyn 3.375gm Ivpb (Pre-Docked)) 50 mls @ 100 mls/hr IVPB Q8H-IV [facility] PRN Reason: Protocol Last Admin: 08/25/16 11:41 Dose: 100 mls/hr Memantine (Namenda -) 10 mg PO BID [facility] Last Admin: 08/25/16 11:43 Dose: 10 mg Metformin HCl (Glucophage -) 500 mg PO ACDIN [facility] Last Admin: 08/24/16 16:53 Dose: 500 mg Olanzapine (Zyprexa -) 5 mg PO HS [facility] Last Admin: 08/24/16 22:22 Dose: 5 mg - Objective Vital Signs: Vital Signs Temperature 98.2 F 08/25/16 06:00 Pulse Rate 61 08/25/16 06:00 Respiratory Rate 20 08/25/16 06:00 Blood Pressure 115/51 08/25/16 06:00 O2 Sat by Pulse Oximetry (%) 97 08/24/16 21:00 Constitutional: Yes: Well Nourished, No Distress, Calm Cardiovascular: Yes: Regular Rate and Rhythm. No: Gallop, Murmur, Rub Respiratory: Yes: Regular, CTA Bilaterally. No: Rales, Rhonchi, Wheezes Gastrointestinal: Yes: Normal Bowel Sounds, Soft. No: Distention, Tenderness Extremities: Yes: WNL Edema: No Labs: CBC, BMP 08/25/16 06:00 08/25/16 06:00 INR, PTT INR 1.15 (0.82-1.09) H 08/23/16 09:15 Problem List - Problems (1) Fall Code(s): W19.XXXA - UNSPECIFIED FALL, INITIAL ENCOUNTER Qualifiers: Encounter type: initial encounter Qualified Code(s): W19.XXXA - Unspecified fall, initial encounter (2) Lung consolidation Code(s): J18.1 - LOBAR PNEUMONIA, UNSPECIFIED ORGANISM (3) Dementia Code(s): F03.90 - UNSPECIFIED DEMENTIA WITHOUT BEHAVIORAL DISTURBANCE (4) Diabetes Code(s): E11.9 - TYPE 2 DIABETES MELLITUS WITHOUT COMPLICATIONS Qualifiers: Diabetes mellitus type: type 2 Diabetes mellitus complication status: without complication (5) ASHD (arteriosclerotic heart disease) Code(s): I25.10 - ATHSCL HEART DISEASE OF [place] CORONARY ARTERY W/O ANG PCTRS (6) HLD (hyperlipidemia) Code(s): E78.5 - HYPERLIPIDEMIA, UNSPECIFIED Assessment/Plan (1) Fall Assessment/Plan: -patient with mechanical fall -PT following -will need SNF placement Code(s): W19.XXXA - UNSPECIFIED FALL, INITIAL ENCOUNTER Qualifiers: Encounter type: initial encounter Qualified Code(s): W19.XXXA - Unspecified fall, initial encounter (2) Lung consolidation Assessment/Plan: -appreciate ID assistance -note reviewed -suspect she is at baseline, will await ID evaluation today to decide when can change to oral antibiotics Code(s): J18.1 - LOBAR PNEUMONIA, UNSPECIFIED ORGANISM (3) Dementia Assessment/Plan: -at baseline -continue home medication regimen Code(s): F03.90 - UNSPECIFIED DEMENTIA WITHOUT BEHAVIORAL DISTURBANCE (4) Diabetes Assessment/Plan: -continue metformin Code(s): E11.9 - TYPE 2 DIABETES MELLITUS WITHOUT COMPLICATIONS Qualifiers: Diabetes mellitus type: type 2 Diabetes mellitus complication status: without complication (5) ASHD (arteriosclerotic heart disease) Assessment/Plan: -quiescent -continue plavix, lipitor, atenolol, and aspirin Code(s): I25.10 - ATHSCL HEART DISEASE OF [place] CORONARY ARTERY W/O ANG PCTRS (6) HLD (hyperlipidemia) Assessment/Plan: -continue lipitor Code(s): E78.5 - HYPERLIPIDEMIA, UNSPECIFIED
--- NOTE | 2016-08-25 13:35 | PN ---
Progress Note, Physician History of Present Illness: patient calm awake still confused - Current Medication List Current Medications: Active Medications Acetaminophen (Tylenol -) 650 mg PO Q4H PRN PRN Reason: FEVER OR PAIN Last Admin: 08/23/16 21:50 Dose: 650 mg Aspirin (Asa -) 81 mg PO DAILY [facility] Last Admin: 08/25/16 11:43 Dose: 81 mg Atenolol (Tenormin -) 25 mg PO DAILY [facility] Last Admin: 08/25/16 11:42 Dose: 25 mg Atorvastatin Calcium (Lipitor -) 20 mg PO HS [facility] Last Admin: 08/24/16 22:21 Dose: 20 mg Brimonidine Tartrate (Alphagan P 0.1% -) 1 drop OU BID [facility] Last Admin: 08/25/16 11:44 Dose: 1 drop Clopidogrel Bisulfate (Plavix -) 75 mg PO DAILY [facility] Last Admin: 08/25/16 11:42 Dose: 75 mg Donepezil HCl (Aricept -) 10 mg PO HS [facility] Last Admin: 08/24/16 22:21 Dose: 10 mg Heparin Sodium (Porcine) (Heparin -) 5,000 unit SQ BID [facility] Last Admin: 08/25/16 11:43 Dose: 5,000 unit Vancomycin HCl 1,250 mg/ (Dextrose) 250 mls @ 250 mls/hr IVPB DAILY [facility] PRN Reason: Protocol Piperacillin Sod/Tazobactam Sod (Zosyn 3.375gm Ivpb (Pre-Docked)) 50 mls @ 100 mls/hr IVPB Q8H-IV [facility] PRN Reason: Protocol Last Admin: 08/25/16 11:41 Dose: 100 mls/hr Memantine (Namenda -) 10 mg PO BID [facility] Last Admin: 08/25/16 11:43 Dose: 10 mg Metformin HCl (Glucophage -) 500 mg PO ACDIN [facility] Last Admin: 08/24/16 16:53 Dose: 500 mg Olanzapine (Zyprexa -) 5 mg PO HS [facility] Last Admin: 08/24/16 22:22 Dose: 5 mg - Objective Vital Signs: Vital Signs Temperature 98.2 F 08/25/16 06:00 Pulse Rate 61 08/25/16 06:00 Respiratory Rate 20 08/25/16 06:00 Blood Pressure 115/51 08/25/16 06:00 O2 Sat by Pulse Oximetry (%) 97 08/24/16 21:00 Constitutional: Yes: No Distress, Calm Cardiovascular: Yes: Regular Rate and Rhythm Respiratory: Yes: Regular, CTA Bilaterally Gastrointestinal: Yes: Normal Bowel Sounds, Soft Musculoskeletal: Yes: WNL Extremities: Yes: WNL Labs: CBC, BMP 08/25/16 06:00 08/25/16 06:00 INR, PTT INR 1.15 (0.82-1.09) H 08/23/16 09:15 Assessment/Plan the way patient presented here is high chance that patient could have urinary tract infection also her left lung shows some consolidation Problem List - Problems (1) Fall Code(s): W19.XXXA - UNSPECIFIED FALL, INITIAL ENCOUNTER Qualifiers: Encounter type: initial encounter Qualified Code(s): W19.XXXA - Unspecified fall, initial encounter (2) Lung consolidation Code(s): J18.1 - LOBAR PNEUMONIA, UNSPECIFIED ORGANISM (3) Dementia Code(s): F03.90 - UNSPECIFIED DEMENTIA WITHOUT BEHAVIORAL DISTURBANCE (4) Diabetes Code(s): E11.9 - TYPE 2 DIABETES MELLITUS WITHOUT COMPLICATIONS Qualifiers: Diabetes mellitus type: type 2 Diabetes mellitus complication status: without complication (5) ASHD (arteriosclerotic heart disease) Code(s): I25.10 - ATHSCL HEART DISEASE OF [place] CORONARY ARTERY W/O ANG PCTRS (6) HLD (hyperlipidemia) Code(s): E78.5 - HYPERLIPIDEMIA, UNSPECIFIED all cx report noted plan looks like this is the baseline according to notes will switch to oral augmentin rest continue as per primary team
[2016-08-25] MEDS: AMOX TR/POT CLAV 500MG/125MG TABLETS (FP) PO SCH (18:46)
[2016-08-25] MEDS: metFORMIN HCL 500 MG TABLET (FP) PO SCH (18:49)
[2016-08-25] MEDS: ATORVASTATIN CA 20 MG TABLET (FP) PO SCH (22:17)
[2016-08-25] MEDS: OLANZapine 5 MG TABLET PO SCH (22:17)
[2016-08-25] MEDS: DONEPEZIL HCL 10 MG TABLET (FP) PO SCH (22:18)
[2016-08-26 08:22] LABS: ANION GAP 9 (8-16); CALCIUM 8.9 mg/dL (8.5-10.1); CO2 28 mmol/L (21-32); CREATININE 0.6 mg/dL (0.55-1.02); GLUCOSE,RANDOM 88 mg/dL (74-106); MAGNESIUM 2.2 mg/dL (1.8-2.4); PHOSPHOROUS 2.6 mg/dL (2.5-4.9)
[2016-08-26 08:28] LABS: BASOPHIL 0.3 % (0-2.0); EOSINOPHIL 1.6 % (0-4.5); MCH 31.6 pg (25.7-33.7); MCHC 32.7 g/dl (32.0-36.0); MEAN CELL VOLUME 96.7 fl (80-96); MEAN PLT VOLUME 9.5 fl (7.5-11.1); NEUTROPHILS 75.1 % (42.8-82.8); PLATELET COUNT 145 K/MM3 (134-434); RDW 14.3 % (11.6-15.6); WHITE BLOOD COUNT 6.6 K/mm3 (4.0-10.0)
[2016-08-26] MEDS ORDERED: PT OWN MED DRAWER 7, Y5N ONE ×2 (10:33→16:26)
[2016-08-26] MEDS: ASPIRIN 81 MG CHEWABLE TABLETS PO SCH (10:53)
[2016-08-26] MEDS: BRIMONIDINE TARTRATE 0.1% OPHTHALMIC 5 ML BOTTLE OU SCH (10:53)
[2016-08-26] MEDS: AMOX TR/POT CLAV 500MG/125MG TABLETS (FP) PO SCH ×2 (10:53→17:36)
[2016-08-26] MEDS: MEMANTINE HCL 10 MG TABLET (FP) PO SCH (10:54)
[2016-08-26] MEDS: ATENOLOL 50 MG TABLET (FP) PO SCH (10:54)
[2016-08-26] MEDS: CLOPIDOGREL BISULFATE 75 MG TABLET (FP) PO SCH (10:54)
[2016-08-26] MEDS: HEPARIN NA (PORCINE) 5,000 UNITS/ML 1ML VIAL SQ SCH (10:54)
[2016-08-26 13:43] VITALS: BP 125/58; PULSE 53; TEMP 98.2
--- NOTE | 2016-08-26 14:26 | PN ---
Progress Note, Physician History of Present Illness: patient stable no new issues says she is doing well - Current Medication List Current Medications: Active Medications Acetaminophen (Tylenol -) 650 mg PO Q4H PRN PRN Reason: FEVER OR PAIN Last Admin: 08/23/16 21:50 Dose: 650 mg Amoxicillin/Clavulanate Potassium (Augmentin - 500mg Tablet) 1 tab PO BID@0800, 1730 [facility] Last Admin: 08/26/16 10:53 Dose: 1 tab Aspirin (Asa -) 81 mg PO DAILY [facility] Last Admin: 08/26/16 10:53 Dose: 81 mg Atenolol (Tenormin -) 25 mg PO DAILY [facility] Last Admin: 08/26/16 10:54 Dose: 25 mg Atorvastatin Calcium (Lipitor -) 20 mg PO HS [facility] Last Admin: 08/25/16 22:17 Dose: 20 mg Brimonidine Tartrate (Alphagan P 0.1% -) 1 drop OU BID [facility] Last Admin: 08/26/16 10:53 Dose: 1 drop Clopidogrel Bisulfate (Plavix -) 75 mg PO DAILY [facility] Last Admin: 08/26/16 10:54 Dose: 75 mg Donepezil HCl (Aricept -) 10 mg PO HS [facility] Last Admin: 08/25/16 22:18 Dose: 10 mg Heparin Sodium (Porcine) (Heparin -) 5,000 unit SQ BID [facility] Last Admin: 08/26/16 10:54 Dose: 5,000 unit Memantine (Namenda -) 10 mg PO BID [facility] Last Admin: 08/26/16 10:54 Dose: 10 mg Metformin HCl (Glucophage -) 500 mg PO ACDIN [facility] Last Admin: 08/25/16 18:49 Dose: 500 mg Olanzapine (Zyprexa -) 5 mg PO HS [facility] Last Admin: 08/25/16 22:17 Dose: 5 mg - Objective Vital Signs: Vital Signs Temperature 98.2 F 08/26/16 13:41 Pulse Rate 53 L 08/26/16 13:41 Respiratory Rate 20 08/26/16 13:41 Blood Pressure 125/58 08/26/16 13:41 O2 Sat by Pulse Oximetry (%) 96 08/26/16 09:00 Constitutional: Yes: No Distress, Calm Cardiovascular: Yes: Regular Rate and Rhythm Respiratory: Yes: Regular, CTA Bilaterally Gastrointestinal: Yes: Normal Bowel Sounds, Soft Musculoskeletal: Yes: WNL Extremities: Yes: WNL Neurological: Yes: Alert, Other Psychiatric: Yes: Alert, Other Labs: CBC, BMP 08/26/16 06:00 08/26/16 06:00 INR, PTT INR 1.15 (0.82-1.09) H 08/23/16 09:15 Assessment/Plan the way patient presented here is high chance that patient could have urinary tract infection also her left lung shows some consolidation Problem List - Problems (1) Fall Code(s): W19.XXXA - UNSPECIFIED FALL, INITIAL ENCOUNTER Qualifiers: Encounter type: initial encounter Qualified Code(s): W19.XXXA - Unspecified fall, initial encounter (2) Lung consolidation Code(s): J18.1 - LOBAR PNEUMONIA, UNSPECIFIED ORGANISM (3) Dementia Code(s): F03.90 - UNSPECIFIED DEMENTIA WITHOUT BEHAVIORAL DISTURBANCE (4) Diabetes Code(s): E11.9 - TYPE 2 DIABETES MELLITUS WITHOUT COMPLICATIONS Qualifiers: Diabetes mellitus type: type 2 Diabetes mellitus complication status: without complication (5) ASHD (arteriosclerotic heart disease) Code(s): I25.10 - ATHSCL HEART DISEASE OF [place] CORONARY ARTERY W/O ANG PCTRS (6) HLD (hyperlipidemia) Code(s): E78.5 - HYPERLIPIDEMIA, UNSPECIFIED all cx report noted plan looks like this is the baseline according to notes continue augmentin rest continue as per primary team can stop abx by monday
[2016-08-26] MEDS ORDERED: POTASSIUM CHLORIDE TABS 20 MEQ TABLET.ER (FP) PO ONE (15:32)
--- NOTE | 2016-08-26 15:34 | DS ---
Physical Examination Vital Signs: Vital Signs Temperature 98.2 F 08/26/16 13:41 Pulse Rate 53 L 08/26/16 13:41 Respiratory Rate 20 08/26/16 13:41 Blood Pressure 125/58 08/26/16 13:41 O2 Sat by Pulse Oximetry (%) 96 08/26/16 09:00 Constitutional: Yes: Well Nourished, No Distress, Calm Cardiovascular: Yes: Regular Rate and Rhythm. No: Gallop, Murmur, Rub Respiratory: Yes: Regular, CTA Bilaterally. No: Rales, Rhonchi, Wheezes Gastrointestinal: Yes: Normal Bowel Sounds, Soft. No: Distention, Tenderness Extremities: Yes: WNL Edema: No Labs: CBC, BMP 08/26/16 06:00 08/26/16 06:00 Discharge Summary Reason For Visit: LUNG CONSOLIDATION Current Active Problems Fall (Acute) HLD (hyperlipidemia) (Acute) Lung consolidation (Acute) Hospital Course: (1) Fall Code(s): W19.XXXA - UNSPECIFIED FALL, INITIAL ENCOUNTER Qualifiers: Encounter type: initial encounter Qualified Code(s): W19.XXXA - Unspecified fall, initial encounter (2) Lung consolidation Code(s): J18.1 - LOBAR PNEUMONIA, UNSPECIFIED ORGANISM (3) Dementia Code(s): F03.90 - UNSPECIFIED DEMENTIA WITHOUT BEHAVIORAL DISTURBANCE (4) Diabetes Code(s): E11.9 - TYPE 2 DIABETES MELLITUS WITHOUT COMPLICATIONS Qualifiers: Diabetes mellitus type: type 2 Diabetes mellitus complication status: without complication (5) ASHD (arteriosclerotic heart disease) Code(s): I25.10 - ATHSCL HEART DISEASE OF [place] CORONARY ARTERY W/O ANG PCTRS (6) HLD (hyperlipidemia) Code(s): E78.5 - HYPERLIPIDEMIA, UNSPECIFIED Mrs Urbina is a pleasant 80 year old female with dementia who came in with a fall. She was recently treated for UTI and discharged. At home she was walking around without assistance and fell. She presented to the hospital and was evaluated. She did not have any fractures, but there was concern for possible HCAP so she was admitted. She was seen by ID and placed on IV antibiotics. She tolerated this well. She was seen by PT. She was able to be transitioned to oral antibiotics. Currently she is stable. I discussed discharge options with her and it was decided she would be safest with further PT at SNF. She is stable for discharge to SNF 40 minutes spent in preparation of this discharge Condition: Stable - Instructions Diet, Activity, Other Instructions: diabetic/sodium controlled diet. Up with assistance, further activity per PT Referrals: Harley Altman MD [Primary Care Provider] - Disposition: ALF FACILITY - Home Medications Comprehensive Discharge Medication List: Ambulatory Orders Acetaminophen [Tylenol .Regular Strength -] 650 mg PO Q4H PRN #100 tablet Aspirin [ASA -] 81 mg PO DAILY #30 tab.chew 10/29/13 Atorvastatin Ca [Lipitor] 20 mg PO HS #30 tablet 10/29/13 Clopidogrel Bisulfate [Plavix -] 75 mg PO DAILY #30 tablet 10/29/13 Donepezil HCl [Aricept -] 10 mg PO HS #30 tablet 10/29/13 Memantine HCl [Namenda -] 10 mg PO BID #60 tablet 10/29/13 Metformin HCl [Glucophage -] 500 mg PO ACDIN #30 tablet 10/29/13 Atenolol [Tenormin -] 25 mg PO DAILY #30 tablet 06/20/14 Brimonidine Tartrate [Alphagan P 0.1% -] 1 drop OU BID drops 06/20/14 Olanzapine [Zyprexa -] 5 mg PO HS #30 tablet 06/20/14 Lactobacillus Acidophilus [Acidophilus Lactobacillus] 1 each PO DAILY 10 Days Amox-Tr/K Cl [Augmentin 500-125mg Tablet -] 1 tab PO BID@0800,1730 3 Days
[2016-08-26] MEDS: metFORMIN HCL 500 MG TABLET (FP) PO SCH (17:36)
== END 2016-08-26 18:18 | DRG 194 ==
LOC: JER 08:00 → JERBED 11:41 → J7W 20:40
PROVIDERS: ADMIT Internal Medicine; ATTEND Internal Medicine
DX: J18.1 Lobar pneumonia, unspecified organism (principal); E87.0 Hyperosmolality and hypernatremia; E11.9 Type 2 diabetes mellitus without complications; I25.10 Atherosclerotic heart disease of native coronary artery without angina pectoris; E78.5 Hyperlipidemia, unspecified; G30.9 Alzheimer's disease, unspecified; F02.80 Dementia in other diseases classified elsewhere, unspecified severity, without behavioral disturbance, psychotic disturbance, mood disturbance, and anxiety; I10 Essential (primary) hypertension
CPT/HCPCS: 36415; 70450-TC; 71010-TC; 80048; 80053; 81003; 82550; 82803; 83605; 83735; 84100; 84484; 85025; 85610; 85730; 86850; 86900; 86901; 87040; 87086; 93005; 93010; 97116-GP; 97161-GP; 99285-25; J1644

== ENCOUNTER 2017-02-11 08:22 | Inpatient (IN) | payer OTHER ==
--- NOTE | 2017-02-11 08:40 | PDOC ---
History of Present Illness - General History Source: Patient, Family, Other (EMT) - History of Present Illness Occurred: reports: this morning Pain Location: reports: none Method of Injury: Yes: fall <Yokasta Urbina - Last Filed: 02/11/17 11:44> <Chloe Angulo - Last Filed: 02/11/17 11:50> - General Chief Complaint: Injury Stated Complaint: FALL Time Seen by Provider: 02/11/17 08:28 Past History - Past Medical History Anemia: No Asthma: No Cancer: No Cardiac Disorders: No CVA: No COPD: No CHF: No Dementia: Yes Diabetes: Yes GI Disorders: Yes (diverticulosis, IBS) Disorders: Yes (UTI) HTN: Yes Hypercholesterolemia: Yes Liver Disease: No Seizures: No Thyroid Disease: No - Surgical History Abdominal Surgery: No Appendectomy: Yes Cardiac Surgery: No Cholecystectomy: No Lung Surgery: No Neurologic Surgery: No Orthopedic Surgery: Yes (femur fx) - Immunization History Immunization Up to Date: Yes - Suicide/Smoking/Psychosocial Hx Smoking History: Unknown if ever smoked Have you smoked in the past 12 months: No If you are a former smoker, when did you quit?: 20 yrs ago Hx Alcohol Use: No Drug/Substance Use Hx: No Substance Use Type: None Hx Substance Use Treatment: No <Yokasta Urbina - Last Filed: 02/11/17 11:44> <Chloe Angulo - Last Filed: 02/11/17 11:50> - Past Medical History Allergies/Adverse Reactions: Allergies Allergy/AdvReac Type Severity Reaction Status Date / Time No Known Allergies Allergy Verified 02/11/17 10:11 Home Medications: Ambulatory Orders Acetaminophen [Tylenol .Regular Strength -] 650 mg PO Q4H PRN #100 tablet Aspirin [ASA -] 81 mg PO DAILY #30 tab.chew 10/29/13 Atorvastatin Ca [Lipitor] 20 mg PO HS #30 tablet 10/29/13 Clopidogrel Bisulfate [Plavix -] 75 mg PO DAILY #30 tablet 10/29/13 Donepezil HCl [Aricept -] 10 mg PO HS #30 tablet 10/29/13 Memantine HCl [Namenda -] 10 mg PO BID #60 tablet 10/29/13 Metformin HCl [Glucophage -] 500 mg PO ACDIN #30 tablet 10/29/13 Atenolol [Tenormin -] 25 mg PO DAILY #30 tablet 06/20/14 Brimonidine Tartrate [Alphagan P 0.1% -] 1 drop OU BID drops 06/20/14 Olanzapine [Zyprexa -] 5 mg PO HS #30 tablet 06/20/14 Lactobacillus Acidophilus [Acidophilus Lactobacillus] 1 each PO DAILY 10 Days capsule 05/15/15 Amox-Tr/K Cl [Augmentin 500-125mg Tablet -] 1 tab PO BID@0800,1730 3 Days tablet 08/26/16 Unobtainable 02/11/17 Review of Systems - Review of Systems Constitutional: No: Chills, Fever Respiratory: No: Cough, Shortness of Breath Cardiac (ROS): No: Chest Pain, Lightheadedness, Palpitations, Syncope ABD/GI: No: Constipated, Diarrhea, Nausea, Vomiting : No: Dysuria Musculoskeletal: No: Back Pain, Joint Pain, Joint Swelling <Yokasta Urbina - Last Filed: 02/11/17 11:44> *Physical Exam - Physical Exam General Appearance: Yes: Appropriately Dressed. No: Apparent Distress HEENT: positive: Normal Voice Neck: positive: Supple Respiratory/Chest: positive: Lungs Clear, Normal Breath Sounds. negative: Respiratory Distress Cardiovascular: positive: Regular Rate, S1, S2 Gastrointestinal/Abdominal: positive: Soft. negative: Tender Extremity: positive: Normal Inspection, Normal Range of Motion. negative: Tender, Swelling Integumentary: positive: Dry, Warm Neurologic: positive: Alert, Normal Mood/Affect, Other (Oriented x 2 (baseline per records)) <Yokasta Urbina - Last Filed: 02/11/17 11:44> - Vital Signs Last Vital Signs Temp Pulse Resp BP Pulse Ox 98.2 F 54 L 15 118/76 98 02/11/17 09:14 02/11/17 09:14 02/11/17 09:14 02/11/17 09:14 02/11/17 09:14 <Chloe Angulo - Last Filed: 02/11/17 11:50> ED Treatment Course - LABORATORY CBC & Chemistry Diagram: 02/11/17 09:40 02/11/17 09:40 - RADIOLOGY Radiology Studies Ordered: Category Date Time Status HEAD CT WITHOUT CONTRAST [CT] Stat CT Scan 02/11/17 08:34 Ordered CHEST X-RAY PORTABLE* [RAD] Stat Radiology 02/11/17 08:33 Ordered HIP & PELVIS-LEFT [RAD] Stat Radiology 02/11/17 08:34 Ordered HIP & PELVIS-RIGHT [RAD] Stat Radiology 02/11/17 08:34 Ordered SPINE-LUMBAR SACRAL [RAD] Stat Radiology 02/11/17 08:34 Ordered <Yokasta Urbina - Last Filed: 02/11/17 11:44> - LABORATORY CBC & Chemistry Diagram: 02/11/17 09:40 02/11/17 09:40 - ADDITIONAL ORDERS Additional order review: Laboratory Results 02/11/17 02/11/17 09:40 09:40 PT with INR Cancelled INR Cancelled Sodium 143 Potassium 4.2 D Chloride 106 Carbon Dioxide 28 Anion Gap 9 BUN 12 Creatinine 0.7 Creat Clearance w eGFR > 60 Random Glucose 115 H D Calcium 9.3 Total Bilirubin 0.6 D AST 17 ALT 20 Alkaline Phosphatase 125 H D Creatine Kinase 72 Troponin I < 0.02 Total Protein 7.3 Albumin 3.4 02/11/17 09:40 RBC 4.60 D MCV 97.8 H MCHC 33.2 RDW 12.9 MPV 6.9 L D Neutrophils % 73.4 Lymphocytes % 17.3 D Monocytes % 7.8 Eosinophils % 0.9 Basophils % 0.6 <Chloe Angulo - Last Filed: 02/11/17 11:50> Medical Decision Making - Medical Decision Making 02/11/17 08:35 Patient is a 81-year-old female with history of Alzheimer's disease, hypertension, hyperlipidemia, on asa and plavix, diabetes, brought in by EMS for unwitnessed fall. As per EMT, patient resides with who told them that he found patient lying on her back in the hallway this a.m. states he assumes she had just used the restroom because she had fecal matter on her hand. Patient was unable to give details of fall but denies LOC, MONAE, dizziness, n/v, CP or SOB. Denies any pain at this time ans has not tried to ambulate since fall See S/p unwitnessed fall this am Pt has Alzheimer and unable to give details of fall, however denies loc, MONAE, dizziness, n/v On asa and plavix No hip/back pain but has not attempted to ambulate since fall Stable and well gisela w/ no e/o serious injury on exam -CT head -EKG/labs -anticipate admission 02/11/17 11:09 EKG, x-rays, CT and labs, all unremarkable. As fall was unwitnessed, cannot r/ o syncope. Will contact patient's PMD to arrange admission to tele obs 02/11/17 11:19 02/11/17 11:32 02/11/17 11:44 case d/w hospitalist and pt admitted to tele obs <Yokasta Urbina - Last Filed: 02/11/17 11:44> *DC/Admit/Observation/Transfer - Discharge Dispostion Admit: Yes <Yokasta Urbina - Last Filed: 02/11/17 11:44> <Chloe Angulo - Last Filed: 02/11/17 11:50> Diagnosis at time of Disposition: Syncope Fall Qualifiers: Encounter type: initial encounter Qualified Code(s): W19.XXXA - Unspecified fall, initial encounter - Discharge Dispostion Condition at time of disposition: Fair
[2017-02-11 09:55] LABS: BASOPHIL 0.6 % (0-2.0); EOSINOPHIL 0.9 % (0-4.5); MCH 32.4 pg (25.7-33.7); MCHC 33.2 g/dl (32.0-36.0); MEAN CELL VOLUME 97.8 fl (80-96); MEAN PLT VOLUME 6.9 fl (7.5-11.1); NEUTROPHILS 73.4 % (42.8-82.8); PLATELET COUNT 226 K/MM3 (134-434); RDW 12.9 % (11.6-15.6); WHITE BLOOD COUNT 8.2 K/mm3 (4.0-10.0)
[2017-02-11 10:20] VITALS: BMI 25.7
[2017-02-11 10:20] LABS: ALBUMIN 3.4 g/dl (3.4-5.0); ANION GAP 9 (8-16); BILIRUBIN,TOTAL 0.6 mg/dL (0.2-1.0); CALCIUM 9.3 mg/dL (8.5-10.1); CO2 28 mmol/L (21-32); CREATININE 0.7 mg/dL (0.55-1.02); GLUCOSE,RANDOM 115 mg/dL (74-106); SGPT/ALT 20 U/L (12-78); TOT PROT 7.3 g/dl (6.4-8.2)
[2017-02-11 10:23] LABS: ALK PHOS 125 U/L (45-117); TROPONIN I < 0.02 ng/ml (0.00-0.05)
[2017-02-11 10:29] LABS: CPK 72 IU/L (26-192); SGOT/AST 17 U/L (15-37)
--- NOTE | 2017-02-11 11:45 | HP ---
CHIEF COMPLAINT: Unwitnessed fall on aspirin and Plavix. PCP: Dr. Altman HISTORY OF PRESENT ILLNESS: 81 year-old female with a PMH of HTN, HLD, CAD, NIDDM, IBS, OA, recurrent UTIs, and Alzheimer's dementia. Brought by EMS to the ED on a report that patient was found lying on her back on the floor by her . did not accompany patient to the hospital and hung up when ED staff tried to speak to him by phone. Patient cannot give a history due to dementia. Recent Travel: No PAST MEDICAL HISTORY: Hypertension Hyperlipidemia Coronary artery disease NIDDM Irritable bowel syndrom Osteoarthritis Recurrent UTIs Alzheimer's dementia PAST SURGICAL HISTORY: Appendectomy Left hip replacement Bilateral cataracts Social History: Smoking: no Alcohol: no Drugs: no Family History: non contributory Allergies No Known Allergies Allergy (Verified 02/11/17 10:11) Home Medications Medication Instructions Recorded Acetaminophen [Tylenol .Regular 650 mg PO Q4H PRN #100 tablet 10/29/13 Strength -] Aspirin [ASA -] 81 mg PO DAILY #30 tab.chew 10/29/13 Atorvastatin Ca [Lipitor] 20 mg PO HS #30 tablet 10/29/13 Clopidogrel Bisulfate [Plavix -] 75 mg PO DAILY #30 tablet 10/29/13 Donepezil HCl [Aricept -] 10 mg PO HS #30 tablet 10/29/13 Memantine HCl [Namenda -] 10 mg PO BID #60 tablet 10/29/13 Metformin HCl [Glucophage -] 500 mg PO ACDIN #30 tablet 10/29/13 Atenolol [Tenormin -] 25 mg PO DAILY #30 tablet 06/20/14 Brimonidine Tartrate [Alphagan P 1 drop OU BID drops 06/20/14 0.1% -] Olanzapine [Zyprexa -] 5 mg PO HS #30 tablet 06/20/14 Lactobacillus Acidophilus 1 each PO DAILY 10 Days capsule 05/15/15 [Acidophilus Lactobacillus] Amox-Tr/K Cl [Augmentin 500-125mg 1 tab PO BID@0800,1730 3 Days 08/26/16 Tablet -] tablet Unobtainable 02/11/17 REVIEW OF SYSTEMS Unable to obtain due to patient's dementia PHYSICAL EXAMINATION Vital Signs - 24 hr 02/11/17 09:14 Temperature 98.2 F Pulse Rate 54 L Respiratory 15 Rate Blood Pressure 118/76 O2 Sat by Pulse 98 Oximetry (%) GENERAL/NEURO: Awake, A&Ox 1. CN II-XII grossly intact. States name clearly. Does not respond to other questions. Nonsense syllables. HEAD Normal with no signs of trauma. EYES: Pupils equal, round and reactive to light, sclera anicteric, conjunctiva clear. No lid lag. EARS, NOSE, THROAT: Ears normal, nares patent, oropharynx clear without exudates. Moist mucous membranes. NECK: Normal range of motion, supple without lymphadenopathy, JVD, or masses. LUNGS: Breath sounds equal, clear to auscultation bilaterally. No wheezes, and no crackles. No accessory muscle use. HEART: Regular rate and rhythm, normal S1 and S2 without murmur, rub or gallop. ABDOMEN: Soft, nontender, not distended, normoactive bowel sounds, no guarding, no rebound, no masses. MUSCULOSKELETAL: Normal range of motion at all joints. No bony deformities or tenderness. No CVA tenderness. UPPER EXTREMITIES: 2+ pulses, warm, well-perfused. No cyanosis. No clubbing. No peripheral edema. LOWER EXTREMITIES: 2+ pulses, warm, well-perfused. No calf tenderness. No peripheral edema. Laboratory Results - last 24 hr 02/11/17 02/11/17 02/11/17 09:40 09:40 09:40 WBC 8.2 RBC 4.60 D Hgb 14.9 D Hct 45.0 D MCV 97.8 H MCH 32.4 MCHC 33.2 RDW 12.9 Plt Count 226 D MPV 6.9 L D Neutrophils % 73.4 Lymphocytes % 17.3 D Monocytes % 7.8 Eosinophils % 0.9 Basophils % 0.6 PT with INR Cancelled INR Cancelled Sodium 143 Potassium 4.2 D Chloride 106 Carbon Dioxide 28 Anion Gap 9 BUN 12 Creatinine 0.7 Creat Clearance w eGFR > 60 Random Glucose 115 H D Calcium 9.3 Total Bilirubin 0.6 D AST 17 ALT 20 Alkaline Phosphatase 125 H D Creatine Kinase 72 Troponin I < 0.02 Total Protein 7.3 Albumin 3.4 ASSESSMENT/PLAN 81 year-old with a PMH of HTN, HLD, CAD, NIDDM, IBS, OA, recurrent UTIs, and Alzheimer's dementia. Brought by EMS to the ED on a report that patient was found lying on her back on the floor by her . Unwitnessed fall --on ASA and Plavix --no signs of trauma, xray imaging unremarkable --CT head: no acute process; repeat in 12 hours Possible syncope --troponins neg x 2; third pending --CXR unremarkable --serial ECGs --telemetry monitoring --US carotids pending --echo ordered Alzheimer's dementia --continue Namenda, Aricept, Zyprexa --swallow evaluation Hypertension --BP well-controlled --continue atenolol Hyperlipidemia --continue Lipitor Coronary artery disease --continue ASA, atenolol, Plavix NIDDM --Novolog sliding scale coverage IBS --stable, no acute issues Osteoarthritis --stable, no acute issues Recurrent UTIs --UA & UC ordered --straight cath now FEN Fluids: PO intake adequate Electrolytes: replete as indicated Nutrition: dysphagia pureed, nectar thick until swallow evaluation Physical therapy DVT prophylaxis: subq heparin, oob, ambulation Dispo: continues to require observation. Full code. Visit type - Emergency Visit Emergency Visit: Yes ED Registration Date: 02/11/17 Care time: The patient presented to the Emergency Department on the above date and was hospitalized for further evaluation of their emergent condition. - New Patient This patient is new to me today: Yes Date on this admission: 02/11/17 - Critical Care Critical Care patient: No
[2017-02-11 13:26] LABS: INR 1.11 (0.82-1.09); PROTHROMBIN TIME (PATIENT) 12.5 SEC (9.98-11.88)
[2017-02-11 13:28] LABS: ACTIVATED PTT 29.9 SECONDS (26.9-34.4)
[2017-02-11] MEDS ORDERED: INSULIN (NOVOLOG) ASPART 100 UNITS/ML 10ML VIAL SQ SCH (16:30)
[2017-02-11] MEDS ORDERED: ATENOLOL 25 MG TABLET (FP) ONE (16:54)
[2017-02-11] MEDS: ASPIRIN 81 MG CHEWABLE TABLETS PO SCH (17:10)
[2017-02-11] MEDS: ATENOLOL 50 MG TABLET (FP) PO SCH (17:10)
[2017-02-11] MEDS: CLOPIDOGREL BISULFATE 75 MG TABLET (FP) PO SCH (17:10)
--- NOTE | 2017-02-11 21:51 | EKG ---
Test Reason : Blood Pressure : / mmHG Vent. Rate : 053 BPM Atrial Rate : 053 BPM P-R Int : 166 ms QRS Dur : 106 ms QT Int : 476 ms P-R-T Axes : 002 -41 085 degrees QTc Int : 446 ms POOR DATA QUALITY, INTERPRETATION MAY BE ADVERSELY AFFECTED JUNCTIONAL RHYTHM LEFT AXIS DEVIATION ANTERIOR INFARCT (CITED ON OR BEFORE 21-OCT-2013) NONSPECIFIC T WAVE ABNORMALITY ABNORMAL ECG WHEN COMPARED WITH ECG OF 23-AUG-2016 08:21, JUNCTIONAL RHYTHM HAS REPLACED SINUS RHYTHM Confirmed by LUCIEN VIVAR, TAA ([id number]) on 02/11/2017 9:51:11 PM Referred By: Confirmed By:ATA MCGRAW MD
[2017-02-12] MEDS: INSULIN SLIDING SCALE (NOVOLOG) 1 VIAL SQ SCH ×5 (00:01→23:37)
[2017-02-12] MEDS ORDERED: PT OWN MED DRAWER 7, Y5N ONE ×2 (00:28→21:59)
[2017-02-12 02:56] LABS: URINE APPEARANCE CLOUDY; URINE BILIRUBIN NEGATIVE (NEGATIVE); URINE BLOOD NEGATIVE (NEGATIVE); URINE COLOR DKYELLOW; URINE GLUCOSE (UA) NEGATIVE (NEGATIVE); URINE KETONE NEGATIVE (NEGATIVE); URINE NITRITE POSITIVE (NEGATIVE); URINE PROTEIN NEGATIVE (NEGATIVE); URINE UROBILINOGEN NEGATIVE mg/dL (0.2-1.0)
[2017-02-12 03:00] LABS: URINE LEUK ESTERASE 3+ (NEGATIVE)
[2017-02-12 03:20] LABS: URINE BACTERIA MANY /hpf (NONE SEEN); URINE MUCUS MODERATE; URINE RBC 3 /hpf (0-3); URINE WBC 646 /hpf (3-5)
[2017-02-12 09:17] LABS: BASOPHIL 1.3 % (0-2.0); MCH 32.4 pg (25.7-33.7); MCHC 33.5 g/dl (32.0-36.0); MEAN CELL VOLUME 96.7 fl (80-96); MEAN PLT VOLUME 6.8 fl (7.5-11.1); NEUTROPHILS 67.5 % (42.8-82.8); PLATELET COUNT 209 K/MM3 (134-434); RDW 12.4 % (11.6-15.6); WHITE BLOOD COUNT 5.2 K/mm3 (4.0-10.0)
[2017-02-12 09:44] LABS: ALBUMIN 2.8 g/dl (3.4-5.0); ANION GAP 6 (8-16); BILIRUBIN,TOTAL 0.8 mg/dL (0.2-1.0); CALCIUM 8.6 mg/dL (8.5-10.1); CO2 30 mmol/L (21-32); CREATININE 0.6 mg/dL (0.55-1.02); GLUCOSE,RANDOM 104 mg/dL (74-106); MAGNESIUM 2.3 mg/dL (1.8-2.4); SGOT/AST 10 U/L (15-37); SGPT/ALT 14 U/L (12-78)
[2017-02-12 09:45] LABS: ALK PHOS 118 U/L (45-117); TOT PROT 5.8 g/dl (6.4-8.2)
[2017-02-12] MEDS: ATENOLOL 50 MG TABLET (FP) PO SCH ×2 (10:21→10:29)
[2017-02-12] MEDS: CLOPIDOGREL BISULFATE 75 MG TABLET (FP) PO SCH (10:22)
[2017-02-12] MEDS: ASPIRIN 81 MG CHEWABLE TABLETS PO SCH (10:22)
[2017-02-12] MEDS: MEMANTINE HCL 10 MG TABLET (FP) PO SCH ×3 (10:22→21:56)
[2017-02-12] MEDS: HEPARIN NA (PORCINE) 5,000 UNITS/ML 1ML VIAL SQ SCH ×3 (10:28→21:56)
[2017-02-12] MEDS: BRIMONIDINE TARTRATE 0.1% OPHTHALMIC 5 ML BOTTLE OU SCH ×3 (10:28→22:23)
--- NOTE | 2017-02-12 13:25 | PN ---
Progress Note (short form) - Note Progress Note: resting comfortable. denies Cp, SOB, fever, chills, N/V/C/D Current Medications Generic Name Dose Route Start Last Admin Trade Name Emani PRN Reason Stop Dose Admin Aspirin 81 mg 02/11/17 16:00 02/12/17 10:22 Asa - PO 81 mg DAILY BALA Administration Atenolol 25 mg 02/11/17 16:00 02/12/17 10:29 Tenormin - PO Not Given DAILY BALA Atorvastatin Calcium 20 mg 02/11/17 22:00 02/12/17 00:00 Lipitor - PO 20 mg HS BALA Administration Brimonidine Tartrate 1 drop 02/11/17 22:00 02/12/17 10:28 Alphagan P 0.1% - OU 1 drop BID BALA Administration Clopidogrel Bisulfate 75 mg 02/11/17 16:00 02/12/17 10:22 Plavix - PO 75 mg DAILY BALA Administration Donepezil HCl 10 mg 02/11/17 22:00 02/12/17 00:00 Aricept - PO 10 mg HS BALA Administration Heparin Sodium (Porcine) 5,000 unit 02/11/17 22:00 02/12/17 10:28 Heparin - SQ 5,000 unit BID BALA Administration Insulin Aspart 1 vial 02/11/17 23:30 02/12/17 11:22 Novolog Vial Sliding Scale - SQ Not Given ACHS [facility] Protocol Memantine 10 mg 02/11/17 22:00 02/12/17 10:22 Namenda - PO 10 mg BID BALA Administration Olanzapine 5 mg 02/11/17 22:00 02/12/17 00:00 Zyprexa - PO 5 mg HS BALA Administration Last Vital Signs Temp Pulse Resp BP Pulse Ox 98 F 49 L 16 129/69 95 02/12/17 09:00 02/12/17 09:00 02/12/17 09:00 02/12/17 09:00 02/12/17 08:00 General NAD A&O x1 (self only), answers questions inappropriately at times CV S1 S2 RRR Lungs CTA B/L no wheezing/rales/rhonchi ABdomen soft NT/ND Extremities no pedal edema CBCD WBC 5.2 K/mm3 (4.0-10.0) D 02/12/17 09:00 RBC 3.87 M/mm3 (3.60-5.2) 02/12/17 09:00 Hgb 12.5 GM/dL (10.7-15.3) D 02/12/17 09:00 Hct 37.5 % (32.4-45.2) D 02/12/17 09:00 MCV 96.7 fl (80-96) H 02/12/17 09:00 MCHC 33.5 g/dl (32.0-36.0) 02/12/17 09:00 RDW 12.4 % (11.6-15.6) 02/12/17 09:00 Plt Count 209 K/MM3 (134-434) 02/12/17 09:00 MPV 6.8 fl (7.5-11.1) L 02/12/17 09:00 CMP Sodium 143 mmol/L (136-145) 02/12/17 09:00 Potassium 3.7 mmol/L (3.5-5.1) 02/12/17 09:00 Chloride 107 mmol/L (98-107) 02/12/17 09:00 Carbon Dioxide 30 mmol/L (21-32) 02/12/17 09:00 Anion Gap 6 (8-16) L 02/12/17 09:00 BUN 12 mg/dL (7-18) 02/12/17 09:00 Creatinine 0.6 mg/dL (0.55-1.02) 02/12/17 09:00 Creat Clearance w eGFR > 60 (>60) 02/12/17 09:00 Calcium 8.6 mg/dL (8.5-10.1) 02/12/17 09:00 Total Bilirubin 0.8 mg/dL (0.2-1.0) D 02/12/17 09:00 AST 10 U/L (15-37) L D 02/12/17 09:00 ALT 14 U/L (12-78) D 02/12/17 09:00 Alkaline Phosphatase 118 U/L (45-117) H 02/12/17 09:00 Total Protein 5.8 g/dl (6.4-8.2) L D 02/12/17 09:00 Albumin 2.8 g/dl (3.4-5.0) L 02/12/17 09:00 A/P 81yo F with PMH HTN. CAD, DM, Alzhemiers, and frequent UTI presented to the ER after her found her on the floor 1. Unwitnessed fall- possible syncope. possible due to bradycardia. pt is more alert today but does not recall the events. repeat Head CT negative for acute bleed. will re-start asa/plaivx. on director cardiac has been bradycardic. currently HR 60's. unable to assess if responds to activity as pt does not follow commands. cardiac enzymes neg x3. echo and carotid doppler pending. hold atenolol. and monitor HR. 2. +UA- unable to assess if symptomatic. was treated for clayton-sensitive Ecoli UTI in August 2016 with levaquin. will start ceftriaxone. f/u Ucx 3. Normocytic anemia- acute drop in Hgb, likely dilutional. no signs of bleeding. Hgb near baseline from previous hospitalizations. will repeat. no indication for txn at this time 4. HTN- controlled off medications. hold atenolol and monitor. may need to start alternative agent 5. DM- controlled. not requiring coverage. hold oral agents 6. Alzhemers- unknown baseline but more alert. on aricept, namenda, zyprexa. 7. DVT ppx- hep sq Visit type - Emergency Visit Emergency Visit: Yes ED Registration Date: 02/11/17 Care time: The patient presented to the Emergency Department on the above date and was hospitalized for further evaluation of their emergent condition. - New Patient This patient is new to me today: Yes Date on this admission: 02/12/17 - Critical Care Critical Care patient: No - Discharge Referral Referred to [facility] Med P.C.: No
[2017-02-12] MEDS ORDERED: CEFTRIAXONE 1 GM in DEXTROSE 5%-WATER - 50 ML IVPB SCH (14:00)
[2017-02-12 14:04] LABS: URINE LEUK ESTERASE LARGE (NEGATIVE)
[2017-02-12] MEDS: ATORVASTATIN CA 20 MG TABLET (FP) PO SCH ×2 (21:57)
[2017-02-12] MEDS: OLANZapine 5 MG TABLET PO SCH ×2 (21:58)
[2017-02-12] MEDS: DONEPEZIL HCL 10 MG TABLET (FP) PO SCH ×2 (22:23)
[2017-02-13] MEDS ORDERED: HEPARIN NA (PORCINE) 5,000 UNITS/ML 1ML VIAL IVPUSH PRN ×2 (00:38)
[2017-02-13] MEDS ORDERED: HEPARIN INFUSION - 25,000 UNITS/500 ML INFUS.BAG IVPB SCH (00:45)
--- NOTE | 2017-02-13 00:45 | HOSP ---
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 Bilateral Upper Extremity venous ultrasound ordered to r/o Thrombus Will continue to monitor overnight Physical Examination Vital Signs: Vital Signs Temperature 98.6 F 02/12/17 20:52 Pulse Rate 61 02/12/17 20:52 Respiratory Rate 20 02/12/17 20:52 Blood Pressure 118/61 02/12/17 20:52 O2 Sat by Pulse Oximetry (%) 95 02/12/17 20:52 Labs: CBC, BMP 02/12/17 09:00 02/12/17 09:00
[2017-02-13] MEDS: INSULIN SLIDING SCALE (NOVOLOG) 1 VIAL SQ SCH ×4 (06:03→22:49)
[2017-02-13] MEDS: BRIMONIDINE TARTRATE 0.1% OPHTHALMIC 5 ML BOTTLE OU SCH ×2 (10:06→22:48)
[2017-02-13] MEDS: MEMANTINE HCL 10 MG TABLET (FP) PO SCH ×2 (10:06→22:44)
[2017-02-13] MEDS: ASPIRIN 81 MG CHEWABLE TABLETS PO SCH (10:06)
[2017-02-13] MEDS: CLOPIDOGREL BISULFATE 75 MG TABLET (FP) PO SCH (10:06)
[2017-02-13] MEDS: CEFTRIAXONE 1 G/50 ML PREMIX 50 ML IVPB SCH (10:18)
--- NOTE | 2017-02-13 11:44 | CONSULT ---
Admitting History and Physical - Primary Care Physician PCP: Ric Martinez - Admission History of Present Illness: 81yo F with PMH HTN. CAD, DM, Alzhemiers, and frequent UTI presented to the ER after her found her on the floor Head CT negative Selected Entries 02/11/17 02/11/17 02/11/17 09:14 18:53 21:00 Breakfast Lunch Supper Temperature 98.2 F 97.4 F L 98 F 02/12/17 02/12/17 02/12/17 02:00 05:44 09:00 Breakfast Lunch Supper Temperature 97.4 F L 97.3 F L 98 F 02/12/17 02/12/17 02/12/17 10:35 13:11 14:30 Breakfast 100% Lunch 100% Supper Temperature 98.6 F 02/12/17 02/12/17 02/12/17 17:00 19:49 20:52 Breakfast Lunch Supper 75% Temperature 99.2 F 98.6 F 02/13/17 02/13/17 02/13/17 01:00 05:00 09:00 Breakfast Lunch Supper Temperature 97.6 F 97.9 F 98.2 F 02/13/17 11:04 Breakfast 100% Lunch Supper Temperature Laboratory Tests 02/11/17 02/12/17 09:40 09:00 WBC 8.2 5.2 D History Source: Patient, Medical Record Limitations to Obtaining History: Clinical Condition, Dementia, Poor Historian - Past Medical History 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: Alzheimer's (Mild (on Aricept and Namenda)), Other (Possible demyelinating disorder (sees Dr Barajas)) Cardiovascular: Yes: CAD, Hyperlipdemia, Other (H/O PVCs Sinus tachycardia) Gastrointestinal: Yes: Diverticulosis, Hemorrhoids, Irritable Bowel Disease Renal/: Yes: UTI (H/O) Musculoskeletal: Yes: Osteoarthritis Endocrine: Yes: Diabetes Mellitus - Past Surgical History Past Surgical History: Yes: Appendectomy, Cataract Removal (bilateral) - Smoking History Smoking history: Unknown if ever smoked Have you smoked in the past 12 months: No If you are a former smoker, when did you quit?: 20 yrs ago - Alcohol/Substance Use Hx Alcohol Use: No History of Substance Use: reports: None - Social History ADL: Support Services History of Recent Travel: No History - Admission Reason For Visit: SYNCOPE, FALL - Diagnostics X-ray: Report Reviewed CT Scan: Report Reviewed - General Mental Status: Awake and Alert, Able to Follow Commands, Confused Attention: Distractible, Mild Impairment Head/Neck Control: Fair (head extended at rest) - Hearing Hearing: Functional Hearing Aide: No With Patient: No Speech Evaluation - Communication Primary Language: PORTUGUESE Communication: Yes: Simple Responses (Intermittent impairment of speech initiation reported at baseline) - Speech Production Intelligibility: Yes: WNL - Speech Characteristics Voice Loudness: Normal Voice Pitch: Yes: Normal Voice Phonatory-based Quality: Yes: Normal Speech Pattern: Normal Speech Clarity: < 100% Nasal Resonance: Normal Articulation: Yes: Precise - Language/Auditory Comprehension Follows: Yes: 1 Stage Simple Commands - Language/Verbal Expression Aphasia: Yes: Anomia Able to Respond to Simple Queries: Yes: Moderately Impaired Able to Communicate Wants and Needs: Yes: Mildly Impaired Functional Communication Status: Yes: Moderately Impaired - Swallow Evaluation/Bedside Assessment Current Nutritional Intake: Dysphagia Pureed, Thin Liquids Oral Secretions: Yes: WFL Dentition: Yes: Missing Teeth Facial Symmetry at Rest: Symmetrical Jaw Position: Open at Rest Against Resistance Opening: Normal Against Resistance Closing: Normal Pucker Lips: Normal Smile: Normal Lingual Movement: Normal, Symmetric Lingual Speed of Movement: Normal Lingual Movement Strgth Against Opposition: Normal Lingual Movement Characteristics: Normal Velopharyngeal Movement: Normal Laryngeal Movement: Able to Palpate, Labored,delay initiation Rate of Intake: WFL Bolus Size: WFL Labial Seal: WFL Chewing: WFL Oral Prep Time: WFL A-P Transit: WFL Pocketing: None Timing of Swallow: Delayed Coughing/Throat Clear: No Change in Voice: No Recommendations - Speech Evaluation, Impression/Plan Impression: Verbal, precise articulation,euphonic voice, vague,Simple sentences produced, slow to respond. Swallow is brisk. Fair mastication efficiency. - Dysphagia Impressions/Plan Dysphagia Impressions: Mild Impairment, Risk of Aspiration, Ongoing Evaluation *Silent aspiration: cannot be R/O at bedside Dysphagia Treatment Plan: Small Bites, Chin Tuck/Down (with each bite/sip), Clear Pocket Food, Safe Rate, 1/2 tsp. at a time, Elevate HOB during feed - Recommendations Diet Consistency: Regular (soft, easy to chew,) Liquids: Thin Liquids
--- NOTE | 2017-02-13 13:35 | PN ---
Physical Exam: SUBJECTIVE: Patient seen and examined. Much brighter, interactive, answers simple questions. OBJECTIVE: Vital Signs Period Temp Pulse Resp BP Sys/Dudley Pulse Ox Last 24 Hr 97.6 F-99.2 F 47-62 18-20 97-120/48-70 95-95 GENERAL/NEURO: A&O x 1. Answers simple questions with one word responses. Speech clear. HEAD: Normal with no signs of trauma. LUNGS: Breath sounds equal, clear to auscultation bilaterally, no wheezes, no crackles, no accessory muscle use. HEART: Regular rate and rhythm, S1, S2 without murmur, rub or gallop. ABDOMEN: Soft, nontender, nondistended, normoactive bowel sounds, no guarding, no rebound EXTREMITIES: 2+ pulses, warm, well-perfused, no edema. CBCD WBC 5.2 K/mm3 (4.0-10.0) D 02/12/17 09:00 RBC 3.87 M/mm3 (3.60-5.2) 02/12/17 09:00 Hgb 12.5 GM/dL (10.7-15.3) D 02/12/17 09:00 Hct 37.5 % (32.4-45.2) D 02/12/17 09:00 MCV 96.7 fl (80-96) H 02/12/17 09:00 MCHC 33.5 g/dl (32.0-36.0) 02/12/17 09:00 RDW 12.4 % (11.6-15.6) 02/12/17 09:00 Plt Count 209 K/MM3 (134-434) 02/12/17 09:00 MPV 6.8 fl (7.5-11.1) L 02/12/17 09:00 CMP Sodium 143 mmol/L (136-145) 02/12/17 09:00 Potassium 3.7 mmol/L (3.5-5.1) 02/12/17 09:00 Chloride 107 mmol/L (98-107) 02/12/17 09:00 Carbon Dioxide 30 mmol/L (21-32) 02/12/17 09:00 Anion Gap 6 (8-16) L 02/12/17 09:00 BUN 12 mg/dL (7-18) 02/12/17 09:00 Creatinine 0.6 mg/dL (0.55-1.02) 02/12/17 09:00 Creat Clearance w eGFR > 60 (>60) 02/12/17 09:00 Calcium 8.6 mg/dL (8.5-10.1) 02/12/17 09:00 Total Bilirubin 0.8 mg/dL (0.2-1.0) D 02/12/17 09:00 AST 10 U/L (15-37) L D 02/12/17 09:00 ALT 14 U/L (12-78) D 02/12/17 09:00 Alkaline Phosphatase 118 U/L (45-117) H 02/12/17 09:00 Total Protein 5.8 g/dl (6.4-8.2) L D 02/12/17 09:00 Albumin 2.8 g/dl (3.4-5.0) L 02/12/17 09:00 Laboratory Results - last 24 hr 02/12/17 02/12/17 02/12/17 02:15 16:28 22:31 PTT (Actin FS) POC Glucometer 95 113 Ur Leukocyte Esterase Large H 02/13/17 02/13/17 02/13/17 05:37 08:25 11:37 PTT (Actin FS) 232.7 H POC Glucometer 114 147 Ur Leukocyte Esterase Active Medications Generic Name Dose Route Start Last Admin Trade Name Rooseveltq PRN Reason Stop Dose Admin Aspirin 81 mg 02/11/17 16:00 02/13/17 10:06 Asa - PO 81 mg DAILY BALA Administration Atorvastatin Calcium 20 mg 02/11/17 22:00 02/12/17 21:57 Lipitor - PO 20 mg HS BALA Administration Brimonidine Tartrate 1 drop 02/11/17 22:00 02/13/17 10:06 Alphagan P 0.1% - OU 1 drop BID BALA Administration Clopidogrel Bisulfate 75 mg 02/11/17 16:00 02/13/17 10:06 Plavix - PO 75 mg DAILY BALA Administration Donepezil HCl 10 mg 02/11/17 22:00 02/12/17 22:23 Aricept - PO 10 mg HS BALA Administration Heparin Sodium (Porcine) 1,000 unit 02/13/17 00:38 Heparin - IVPUSH PRN PRN Heparin Heparin Sodium (Porcine) 5,000 unit 02/13/17 00:38 Heparin - IVPUSH PRN PRN Heparin CEFTRIAXONE 1 G/50 ML PREMIX 50 mls @ 100 mls/hr 02/13/17 10:00 02/13/17 10: 18 Ceftriaxone 1 Gm-D5w Bag IVPB 100 mls/hr DAILY BALA Administration Heparin Sodium/Dextrose 25,000 units in 500 mls @ 20 mls/hr 02/13/17 00:45 12:14 Heparin Infusion - IVPB 700 units/hr TITR BALA 14 mls/hr Protocol Titration 1,000 UNITS/HR Insulin Aspart 1 vial 02/11/17 23:30 02/13/17 11:38 Novolog Vial Sliding Scale - SQ Not Given ACHS BALA Protocol Memantine 10 mg 02/11/17 22:00 02/13/17 10:06 Namenda - PO 10 mg BID BALA Administration Olanzapine 5 mg 02/11/17 22:00 02/12/17 21:58 Zyprexa - PO 5 mg HS BALA Administration ASSESSMENT/PLAN 81 year-old with a PMH of HTN, HLD, CAD, NIDDM, IBS, OA, recurrent UTIs, Alzheimer's dementia, and s/p right hip replacement. Brought by EMS to the ED on a report that patient was found lying on her back on the floor by her . Unwitnessed fall --on ASA and Plavix at time of fall --no signs of trauma, xray imaging unremarkable; right hip replacement grossly intact, well-positioned --CT head unremarkable x 2 Possible syncope --troponins neg x 3 --CXR unremarkable --US carotids: no flow in bilateral internal jugular veins; seen and evaluated by Dr. Osborn who considers this an incidental finding, probably chronic; follow up with bilateral upper extremity dopplers, no anticoagulation for now --echo done pending dictation Alzheimer's dementia --continue Namenda, Aricept, Zyprexa --swallow evaluation Hypertension --BP well-controlled --continue atenolol Hyperlipidemia --continue Lipitor Coronary artery disease --continue ASA, atenolol, Plavix NIDDM --Novolog sliding scale coverage IBS --stable, no acute issues Osteoarthritis --stable, no acute issues UTI Metabolic encephalopathy likely secondary to UTI --started ceftriaxone --mental status has improved significantly this evening after abx administraton FEN Fluids: PO intake adequate Electrolytes: replete as indicated Nutrition: soft, thin liquids with precautions Physical therapy DVT prophylaxis: subq heparin, oob, ambulation Dispo: continues to require observation. Full code. Visit type - Emergency Visit Emergency Visit: Yes ED Registration Date: 02/13/17 Care time: The patient presented to the Emergency Department on the above date and was hospitalized for further evaluation of their emergent condition. - New Patient This patient is new to me today: No - Critical Care Critical Care patient: No
--- NOTE | 2017-02-13 13:58 | PN ---
Progress Note (short form) - Note Progress Note: Vascular Surgery Pt seen and examined. US carotid reviewed. Incidental finding of no flow in bl internal jugular veins. Probably chronic. NO need to do AC Will follow bl upper ext duplexes to look at IJ from a venous perspective. Taqueria maciel DO
--- NOTE | 2017-02-13 15:08 | EKG ---
Test Reason : Blood Pressure : / mmHG Vent. Rate : 047 BPM Atrial Rate : 047 BPM P-R Int : 188 ms QRS Dur : 110 ms QT Int : 492 ms P-R-T Axes : 058 -49 257 degrees QTc Int : 435 ms SINUS BRADYCARDIA LEFT AXIS DEVIATION SEPTAL INFARCT (CITED ON OR BEFORE 21-OCT-2013) ABNORMAL ECG WHEN COMPARED WITH ECG OF 11-FEB-2017 09:21, SINUS RHYTHM HAS REPLACED JUNCTIONAL RHYTHM T WAVE VARIATION Confirmed by JANETH VIVAR, CHRISTOPHER ([id number]) on 02/13/2017 3:07:55 PM Referred By: Myron RUGGIERO Confirmed By:CHRISTOPHER FOWLER MD
[2017-02-13] MEDS: ATORVASTATIN CA 20 MG TABLET (FP) PO SCH (22:44)
[2017-02-13] MEDS: DONEPEZIL HCL 10 MG TABLET (FP) PO SCH (22:44)
[2017-02-13] MEDS: OLANZapine 5 MG TABLET PO SCH (22:44)
[2017-02-14] MEDS: INSULIN SLIDING SCALE (NOVOLOG) 1 VIAL SQ SCH ×2 (06:25→11:43)
[2017-02-14] MEDS: MEMANTINE HCL 10 MG TABLET (FP) PO SCH (11:36)
[2017-02-14] MEDS: CEFTRIAXONE 1 G/50 ML PREMIX 50 ML IVPB SCH (11:36)
[2017-02-14] MEDS: CLOPIDOGREL BISULFATE 75 MG TABLET (FP) PO SCH (11:36)
[2017-02-14] MEDS: ASPIRIN 81 MG CHEWABLE TABLETS PO SCH (11:37)
[2017-02-14] MEDS: BRIMONIDINE TARTRATE 0.1% OPHTHALMIC 5 ML BOTTLE OU SCH (11:37)
--- NOTE | 2017-02-14 12:16 | DS ---
Physical Examination Vital Signs: Vital Signs Temperature 36.6 C 02/14/17 10:00 Pulse Rate 59 L 02/14/17 10:00 Respiratory Rate 18 02/14/17 10:00 Blood Pressure 112/63 02/14/17 10:00 O2 Sat by Pulse Oximetry (%) 98 02/14/17 09:00 Constitutional: Yes: Well Nourished, No Distress, Calm Cardiovascular: Yes: Regular Rate and Rhythm. No: Gallop, Murmur, Rub Respiratory: Yes: Regular, CTA Bilaterally. No: Rales, Rhonchi, Wheezes Gastrointestinal: Yes: Normal Bowel Sounds, Soft. No: Distention, Tenderness Extremities: Yes: WNL Edema: No Labs: CBC, BMP 02/12/17 09:00 02/12/17 09:00 Discharge Summary Reason For Visit: SYNCOPE, FALL Current Active Problems Fall (Acute) Syncope (Acute) Hospital Course: Unwitnessed fall Possible syncope Alzheimer's dementia Hypertension Hyperlipidemia Coronary artery disease NIDDM IBS Osteoarthritis UTI with metabolic encephalopathy Mrs Urbina is a very pleasant 81 female who comes in with unwitnessed fall and metabolic encephalopathy secondary to UTI. She was admitted to the hospital and started on rocephin. She tolerated this well and her mental status improved. Her urine culture came back positive for e. coli that was pansensitive, she can start on oral keflex to finish her course. There was concern for syncope since she had an unwitnessed fall. She had head CT since she is on aspirin and plavix and there was no bleed. She underwent ECHO and carotid ultrasound. Carotid ultrasound was originally read as jugular vein thrombosis, ultrasound of soft tissue of the neck was performed (at request of radiology) and no thrombosis was noted. She is safe for discharge home with home VNS 31 minutes spent in preparation of this discharge Condition: Stable - Instructions Diet, Activity, Other Instructions: resume previous diet and activity Referrals: Harley Altman MD [Staff Physician] - Disposition: VNS/HOME HEALTH CARE - Home Medications Comprehensive Discharge Medication List: Ambulatory Orders Aspirin [ASA -] 81 mg PO DAILY #30 tab.chew 10/29/13 Atorvastatin Ca [Lipitor] 20 mg PO HS #30 tablet 10/29/13 Clopidogrel Bisulfate [Plavix -] 75 mg PO DAILY #30 tablet 10/29/13 Donepezil HCl [Aricept -] 10 mg PO HS #30 tablet 10/29/13 Memantine HCl [Namenda -] 10 mg PO BID #60 tablet 10/29/13 Brimonidine Tartrate [Alphagan P 0.1% -] 1 drop OU BID drops 06/20/14 Olanzapine [Zyprexa -] 5 mg PO HS #30 tablet 06/20/14 Cephalexin [Keflex] 500 mg PO BID #8 capsule 02/14/17 Lactobacillus Acidophilus [Acidophilus Lactobacillus] 1 each PO DAILY #10 capsule 02/14/17
[2017-02-14 14:57] VITALS: BP 129/57; PULSE 69; TEMP 98
== END 2017-02-14 16:36 | disposition home health service (06) | DRG 689 ==
LOC: JER 08:22 → JERBED 11:49 → J4W 18:49 → OBSVTOIN 02-13 16:13
PROVIDERS: ADMIT Hospitalist; ATTEND Internal Medicine
DX: N39.0 Urinary tract infection, site not specified (principal); G93.41 Metabolic encephalopathy; R55 Syncope and collapse; G30.9 Alzheimer's disease, unspecified; F02.80 Dementia in other diseases classified elsewhere, unspecified severity, without behavioral disturbance, psychotic disturbance, mood disturbance, and anxiety; I10 Essential (primary) hypertension; E78.5 Hyperlipidemia, unspecified; I25.10 Atherosclerotic heart disease of native coronary artery without angina pectoris; M19.90 Unspecified osteoarthritis, unspecified site; B96.20 Unspecified Escherichia coli [E. coli] as the cause of diseases classified elsewhere; K58.9 Irritable bowel syndrome, unspecified
CPT/HCPCS: 36415; 70450-TC; 71010-TC; 72100-TC; 73523-TC; 76536-TC; 80053; 81003; 81015; 82550; 83735; 84484; 85025; 85610; 85730; 87086; 87186; 93005; 93010; 93306-TC; 93880-TC; 97116-GP; 97161-GP; 99283-25; G0378; J1644

== ENCOUNTER 2017-07-02 17:21 | Emergency (ER) | payer OTHER | END 2017-07-02 22:52 | disposition home or self-care (01) | LOC: JER 17:21 | CPT/HCPCS: 36415; 80053; 80162; 82550; 83735; 84100; 84484; 85025; 85610; 85730; 93005; 93010; 99284-25 ==

== ENCOUNTER 2017-09-18 11:23 | Observation (INO) | payer OTHER ==
--- NOTE | 2017-09-18 11:52 | PDOC ---
History of Present Illness - General Stated Complaint: CHOKING Time Seen by Provider: 09/18/17 11:51 History Source: Patient, Care Provider - History of Present Illness Initial Comments: 09/18/17 12:11 81 year old female with PMH of dementia, alzheimers, MS, HTN, HLD, diabetes, diverticulosis, IBS, hemorrhoids presents to ED today for two episodes of choking on solid food. History was obtained from the medical aid. Per aid pt choked on a sausage this morning and per the patient's , pt has choked on solid food once before. History is limited due to pt's dementia. Pt was able to admit to chest pain, but unable to answer following questions. Last ECHO 2016 revealed EF of 68%. 09/18/17 12:46 Home health nurse is Felicia Barrow, she can be reached at [phone]. Past History - Past Medical History Allergies/Adverse Reactions: Allergies Allergy/AdvReac Type Severity Reaction Status Date / Time No Known Allergies Allergy Verified 02/11/17 10:11 Home Medications: Ambulatory Orders RX: Aspirin [ASA -] 81 mg PO DAILY #30 tab.chew 10/29/13 RX: Atorvastatin Ca [Lipitor] 20 mg PO HS #30 tablet 10/29/13 RX: Clopidogrel Bisulfate [Plavix -] 75 mg PO DAILY #30 tablet 10/29/13 RX: Donepezil HCl [Aricept -] 10 mg PO HS #30 tablet 10/29/13 RX: Memantine HCl [Namenda -] 10 mg PO BID #60 tablet 10/29/13 RX: Brimonidine Tartrate [Alphagan P 0.1% -] 1 drop OU BID drops 06/20/14 RX: Olanzapine [Zyprexa -] 5 mg PO HS #30 tablet 06/20/14 RX: Lactobacillus Acidophilus [Acidophilus Lactobacillus] 1 each PO DAILY #10 capsule 02/14/17 Anemia: No Asthma: No Cancer: No Cardiac Disorders: No CVA: No COPD: No CHF: No Dementia: Yes Diabetes: Yes GI Disorders: Yes (diverticulosis, IBS) Disorders: Yes (UTI) HTN: Yes Hypercholesterolemia: Yes Liver Disease: No Seizures: No Thyroid Disease: No - Surgical History Abdominal Surgery: No Appendectomy: Yes Cardiac Surgery: No Cholecystectomy: No Lung Surgery: No Neurologic Surgery: No Orthopedic Surgery: Yes (femur fx) - Immunization History Immunization Up to Date: Yes - Suicide/Smoking/Psychosocial Hx Smoking History: Unknown if ever smoked Have you smoked in the past 12 months: No If you are a former smoker, when did you quit?: 20 yrs ago Hx Alcohol Use: No Drug/Substance Use Hx: No Substance Use Type: None Hx Substance Use Treatment: No Review of Systems - Review of Systems Able to Perform ROS?: Yes (ROS per medical aid) Comments:: 09/18/17 12:15 General: denies fever, chills, night sweats, generalized weakness. HEENT: denies sore throat, rhinorrhea, ear pain. Heart: admits to chest pain. denies palpitations, syncope, lower extremity swelling. Respiratory: admits to cough. denies shortness of breath sputum production, hematemesis. Abdomen: denies abdominal pain, nausea, vomiting, diarrhea, constipation, blood in stool. : denies dysuria, urinary frequency, hematuria. Musculoskeletal: denies joint pain, muscle pain, joint swelling. Neurological: denies headache, dizziness, numbness, tingling, Skin: denies rash, laceration, abrasion. *Physical Exam - Physical Exam Comments: 09/18/17 12:16 General: awakens to voice, no apparent distress. HEENT: head is normocephalic, atraumatic. PERRLA. No foreign body seen in mouth. Oral mucosa moist. Neck: supple without lymphadenopathy. No crepitus to neck/chest. Heart: regular rhythm. no murmurs, rubs or gallops. Lungs: clear to auscultation bilaterally. no crackles, rhonchi or wheezing. no stridor. Abdomen: soft, nontender. normal bowel sounds. no rebound, guarding, masses. Extremities: Peripheral pulses intact. Mild pedal edema. Neurological: Pt awakens to voice. Oriented to person, not to place or time. Pt follows commands. Upper extremities 3/5 strength. Lower extremities 0/5 strength , baseline according to medical aid. Heart Score/ECG Review - ECG Impressions Comment:: 09/18/17 12:38 Rate 69, normal rhythm, left axis, no acute ST changes. ED Treatment Course - LABORATORY CBC & Chemistry Diagram: 09/18/17 12:30 09/18/17 12:30 Medical Decision Making - Medical Decision Making 09/18/17 12:44 Spoke to home health nurse, Felicia Barrow, about the plan for the patient and her probable admission for neuro and speech and swallow eval. She agrees with the plan. She can be reached at [phone]. 09/18/17 14:[address] negative for acute changes. Labs revealed white count 10.6. Pt will be admitted for observation of acute dysphagia. Spoke to Briana Aquino [employer] who will accept the patient for observation under attending Dr. Ric Martinez. Spoke to home health nurse with the patient and explained plan for care. *DC/Admit/Observation/Transfer Diagnosis at time of Disposition: Dysphagia, Choked on food - Discharge Dispostion Condition at time of disposition: Stable Decision to Admit order: Yes - Referrals - Patient Instructions - Post Discharge Activity
[2017-09-18] MEDS ORDERED: SODIUM CHLORIDE 1,000 ML IV STA (12:18)
[2017-09-18 12:20] VITALS: BMI 25.7
--- NOTE | 2017-09-18 12:31 | PDOC ---
Attending Attestation - HPI HPI: 09/18/17 13:32 The patient is a 81 year old female with a significant PMH of hypertension, hyperlipidemia, diabetes, diverticulosis, alzheimers dementia, MS, IBS and hemorrhoids who presents to the emergency department with 2 episodes of choking on solid food.History from patient is limited secondary to dementia. The patients aid reports that the patient choked on a piece of solid food this morning and, he patients reports that this has happened in the past as well. Patient reports some chest pain at time of exam. Documentation prepared by Katie Ingram, acting as medical health researcher for Curry Gallegos MD. <Katie Ingram - Last Filed: 09/18/17 13:32> - Resident Resident Name: Kamini Torres - ED Attending Attestation I have performed the following: I have examined & evaluated the patient, The case was reviewed & discussed with the resident, I agree w/resident's findings & plan, Exceptions are as noted - Physicial Exam PE: 09/18/17 14:28 agree with residents exam - Medical Decision Making 09/18/17 16:18 The patient is a 81 year old female with a significant PMH of hypertension, hyperlipidemia, diabetes, diverticulosis, alzheimers dementia, MS, IBS and hemorrhoids who presents to the emergency department with 2 episodes of choking on solid food.History from patient is limited secondary to dementia. The patients aid reports that the patient choked on a piece of solid food this morning and, he patients reports that this has happened in the past as well. Patient reports some chest pain at time of exam. 2 days history of subacute onset dysphasia Patient multiple medical issues CT head within normal limits. Labs within normal limits. Will observe in Hospital for speech and swallow evaluation and possible neurologic evaluation if indicated. <Curry Gallegos - Last Filed: 09/18/17 16:19> Heart Score/ECG Review - ECG Impressions Comment:: 09/18/17 16:19 EKG performed at 12:30. Demonstrates sinus rhythm at [address] elevations or T-wave inversions. Left axis deviation. Anterior infarct age indeterminate. Interpreted by me. <Curry Gallegos - Last Filed: 09/18/17 16:19>
[2017-09-18 12:50] LABS: HEMATOCRIT 39.4 % (32.4-45.2); HEMOGLOBIN 13.1 GM/dL (10.7-15.3); MCH 31.6 pg (25.7-33.7); MCHC 33.1 g/dl (32.0-36.0); MEAN CELL VOLUME 95.5 fl (80-96); PLATELET COUNT 251 K/MM3 (134-434); RBC 4.13 M/mm3 (3.60-5.2); RDW 12.6 % (11.6-15.6); WHITE BLOOD COUNT 10.6 K/mm3 (4.0-10.0)
--- NOTE | 2017-09-18 13:12 | EKG ---
Test Reason : Blood Pressure : / mmHG Vent. Rate : 069 BPM Atrial Rate : 069 BPM P-R Int : 168 ms QRS Dur : 114 ms QT Int : 424 ms P-R-T Axes : 062 -44 088 degrees QTc Int : 454 ms NORMAL SINUS RHYTHM LEFT AXIS DEVIATION ANTERIOR INFARCT (CITED ON OR BEFORE 21-OCT-2013) ABNORMAL ECG WHEN COMPARED WITH ECG OF 02-JUL-2017 17:50, NO SIGNIFICANT CHANGE WAS FOUND Confirmed by LUIS BAY MD ([id number]) on 09/18/2017 1:12:01 PM Referred By: Confirmed By:LUIS BAY MD
[2017-09-18 13:15] LABS: ANION GAP 6 (8-16); BILIRUBIN,TOTAL 0.3 mg/dL (0.2-1.0); BLOOD UREA NITROGEN 16 mg/dL (7-18); CALCIUM 8.8 mg/dL (8.5-10.1); CHLORIDE 111 mmol/L (98-107); CO2 29 mmol/L (21-32); CREATININE 0.8 mg/dL (0.55-1.02); GLUCOSE,RANDOM 123 mg/dL (74-106); SGOT/AST 12 U/L (15-37); SGPT/ALT 16 U/L (12-78); SODIUM 146 mmol/L (136-145); TOT PROT 6.6 g/dl (6.4-8.2)
[2017-09-18 13:18] LABS: ALK PHOS 119 U/L (45-117)
--- NOTE | 2017-09-18 14:08 | HP ---
Admitting History and Physical - Primary Care Physician PCP: Harley Altman - Admission Chief Complaint: choking History of Present Illness: is an 81 year old female pmh significant for Alzheimer's Disease who was brought in from home by her aide for an episode of choking this morning. Aide reports pt was eating breakfast and choked on sausage, became "blue" and stopped speaking. Aide performed heimlich maneuver successfully and pt came back to baseline. She stated her mentioned that this is the second occurrence of the choking. Upon speaking to pt's daughter over the phone, she reports mom has been eating less at home with reduced interaction, mostly sleeping at home. Daughter Eunice, who is her HCP, informs that mom is dnr/dni and would not want any invasive life sustaining measures. Otherwise, pt denies any complaints during my interaction, reports "feeling better", unable to recall what happened this am. Pt lethargic during my interaction. Pt was last seen by PCP in 01/2017. 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: Alzheimer's (Mild (on Aricept and Namenda)) Cardiovascular: Yes: CAD, Hyperlipdemia, Other (H/O PVCs Sinus tachycardia) Gastrointestinal: Yes: Diverticulosis, Hemorrhoids, Irritable Bowel Disease Renal/: Yes: UTI (H/O) ...: No Musculoskeletal: Yes: Osteoarthritis Endocrine: Yes: Diabetes Mellitus - Past Surgical History Past Surgical History: Yes: Appendectomy, Cataract Removal (bilateral) - Smoking History Smoking history: Unknown if ever smoked Have you smoked in the past 12 months: No If you are a former smoker, when did you quit?: 20 yrs ago - Alcohol/Substance Use Hx Alcohol Use: No History of Substance Use: reports: None - Social History Usual Living Arrangement: Yes: With Spouse ADL: Support Services History of Recent Travel: No Home Medications - Allergies Allergies/Adverse Reactions: Allergies Allergy/AdvReac Type Severity Reaction Status Date / Time No Known Allergies Allergy Verified 02/11/17 10:11 - Home Medications Home Medications: Ambulatory Orders Aspirin [ASA -] 81 mg PO DAILY #30 tab.chew 10/29/13 Atorvastatin Ca [Lipitor] 20 mg PO HS #30 tablet 10/29/13 Clopidogrel Bisulfate [Plavix -] 75 mg PO DAILY #30 tablet 10/29/13 Donepezil HCl [Aricept -] 10 mg PO HS #30 tablet 10/29/13 Memantine HCl [Namenda -] 10 mg PO BID #60 tablet 10/29/13 Brimonidine Tartrate [Alphagan P 0.1% -] 1 drop OU BID drops 06/20/14 Olanzapine [Zyprexa -] 5 mg PO HS #30 tablet 06/20/14 Lactobacillus Acidophilus [Acidophilus Lactobacillus] 1 each PO DAILY #10 capsule 02/14/17 Family Disease History - Family Disease History Family History: Unable to Obtain (due to pt's dementia) Review of Systems Unable to obtain ROS, reason: due to pt's dementia Physical Examination Vital Signs: Vital Signs Temperature 97.8 F 09/18/17 11:35 Pulse Rate 73 09/18/17 11:35 Respiratory Rate 20 09/18/17 11:35 Blood Pressure 119/61 09/18/17 11:35 O2 Sat by Pulse Oximetry (%) 91 L 09/18/17 11:35 Constitutional: Yes: No Distress, Calm Cardiovascular: Yes: WNL, Regular Rate and Rhythm. No: Gallop, Murmur Respiratory: Yes: Regular, CTA Bilaterally, Diminished (limited lung exam due to pt not taking deep breaths). No: Accessory Muscle Use, Cough, On Nasal O2, SOB, Tachypnea, Wheezes Gastrointestinal: Yes: WNL, Normal Bowel Sounds, Soft. No: Distention, Tenderness Edema: Yes Edema: LLE: 1+, RLE: 1+ Neurological: Yes: Confusion, Lethargy Labs: CBC, BMP 09/18/17 12:30 09/18/17 12:30 Imaging - Results Chest X-ray: Report Reviewed (no acute findings) Cat Scan: Report Reviewed (no acute findings) EKG: Report Reviewed Problem List - Problems (1) Choked on food Assessment/Plan: episode of choking x 2 suspected dysphagia secondary to end stage dementia last speech eval in 02/[address] without acute findings neurology consulted speech eval ordered NPO until evaluated by speech palliative team consulter per daughter's request Code(s): [id number] - (2) Dysphagia Assessment/Plan: as above Code(s): R13.10 - DYSPHAGIA, UNSPECIFIED (3) Dementia Assessment/Plan: progressive reduced po intake, less interactive at home lethargic here continue namenda/aricept neurology consulted palliative team consulted Code(s): F03.90 - UNSPECIFIED DEMENTIA WITHOUT BEHAVIORAL DISTURBANCE Qualifiers: Dementia type: Alzheimer's disease Dementia behavioral disturbance: without behavioral disturbance (4) Leukocytosis Assessment/Plan: borderline elevation possibly secondary to dehydration r/o infectious pathology chest xray pending UA/UC ordered Code(s): D72.829 - ELEVATED WHITE BLOOD CELL COUNT, UNSPECIFIED (5) HLD (hyperlipidemia) Assessment/Plan: chronic continue statin Code(s): E78.5 - HYPERLIPIDEMIA, UNSPECIFIED (6) ASHD (arteriosclerotic heart disease) Assessment/Plan: chronic continue statin/asa Code(s): I25.10 - ATHSCL HEART DISEASE OF [place] CORONARY ARTERY W/O ANG PCTRS (7) Diabetes Assessment/Plan: chronic off meds monitor Code(s): E11.9 - TYPE 2 DIABETES MELLITUS WITHOUT COMPLICATIONS Qualifiers: Diabetes mellitus type: type 2 Diabetes mellitus complication status: without complication Assessment/Plan Dispo: spoke with HCP Eunice regarding plan. Per HCP, pt is DNR/DNI, would not prefer any life sustaining measures such as peg tube, etc. Palliative team consulted per HCP's request.
[2017-09-18] MEDS ORDERED: DEXTROSE 2.5%-0.45% SALINE - 1,000 ML IV SCH (14:30)
[2017-09-18] MEDS ORDERED: SODIUM CHLORIDE 1,000 ML IV SCH (14:30)
[2017-09-18] MEDS ORDERED: DEXTROSE 5%-0.45% SALINE 1,000 ML IV SCH (16:15)
[2017-09-18 17:33] LABS: URINE APPEARANCE CLOUDY; URINE BILIRUBIN NEGATIVE (<2.0 mg/dL); URINE COLOR YELLOW; URINE GLUCOSE (UA) NEGATIVE (NEGATIVE); URINE KETONE NEGATIVE (NEGATIVE); URINE NITRITE POSITIVE (NEGATIVE); URINE PROTEIN NEGATIVE (NEGATIVE); URINE UROBILINOGEN NEGATIVE mg/dL (0.2-1.0)
[2017-09-18 17:39] LABS: URINE LEUK ESTERASE 1+ (NEGATIVE)
[2017-09-18 17:43] LABS: EPI CELLS RARE /HPF (FEW); URINE BACTERIA RARE /hpf (NONE SEEN); URINE MUCUS RARE
[2017-09-18] MEDS ORDERED: cefTRIAXone SODIUM 1 GM VIAL ONE (23:18)
[2017-09-18] MEDS ORDERED: DEXTROSE 5%-WATER 100 ML IVPB ONE (23:19)
[2017-09-18] MEDS: CEFTRIAXONE 1 GM in DEXTROSE 5%-WATER 100 ML IVPB SCH (23:23)
[2017-09-19 07:29] LABS: BASO % 0.6 % (0-2.0); HEMATOCRIT 35.9 % (32.4-45.2); LYMPH % 11.6 % (8-40); MCH 31.9 pg (25.7-33.7); MCHC 33.4 g/dl (32.0-36.0); MEAN CELL VOLUME 95.6 fl (80-96); MEAN PLT VOLUME 6.8 fl (7.5-11.1); MONO % 8.1 % (3.8-10.2); NEUT % 78.7 % (42.8-82.8); PLATELET COUNT 192 K/MM3 (134-434); RBC 3.75 M/mm3 (3.60-5.2); RDW 12.5 % (11.6-15.6); WHITE BLOOD COUNT 7.9 K/mm3 (4.0-10.0)
[2017-09-19 08:09] LABS: ANION GAP 6 (8-16); BLOOD UREA NITROGEN 11 mg/dL (7-18); CALCIUM 8.3 mg/dL (8.5-10.1); CHLORIDE 108 mmol/L (98-107); CO2 29 mmol/L (21-32); GLUCOSE,RANDOM 119 mg/dL (74-106); MAGNESIUM 2.2 mg/dL (1.8-2.4); POTASSIUM 3.5 mmol/L (3.5-5.1); SODIUM 143 mmol/L (136-145)
[2017-09-19 08:12] LABS: CREATININE 0.7 mg/dL (0.55-1.02); PHOSPHOROUS 2.6 mg/dL (2.5-4.9)
--- NOTE | 2017-09-19 09:06 | CONSULT ---
Consult - text type - Consultation Consultation Note: Neurology History of Present Illness: 81 year old female with h/o Alzheimer's reportedly brought in from home by aide 2/2 difficulty swallowing and choking episode. Episode occured during breakbast and heimlich maneuver reportedly performed. CT head completed and without acute changes. Per notes, has been having limited PO intake. Spoke with BRIDGE ENGINEER and family is considering palliative care. Patient was not able to tell me she's in the hospital or the name when told she is in the hospital. She is on Aricept 10mg daily and Namenda 10mg twice daily. 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 (on Aricept and Namenda)) Cardiovascular: Yes: CAD, Hyperlipdemia, Other (H/O PVCs Sinus tachycardia) Gastrointestinal: Yes: Diverticulosis, Hemorrhoids, Irritable Bowel Disease Renal/: Yes: UTI (H/O) Musculoskeletal: Yes: Osteoarthritis Endocrine: Yes: Diabetes Mellitus - Past Surgical History Past Surgical History: Yes: Appendectomy, Cataract Removal (bilateral) - Smoking History Smoking history: Unknown if ever smoked Have you smoked in the past 12 months: No If you are a former smoker, when did you quit?: 20 yrs ago - Alcohol/Substance Use Hx Alcohol Use: No History of Substance Use: reports: None - Social History Usual Living Arrangement: Yes: With Spouse ADL: Support Services History of Recent Travel: No Home Medications - Allergies Allergies/Adverse Reactions: Allergies Allergy/AdvReac Type Severity Reaction Status Date / Time No Known Allergies Allergy Verified 02/11/17 10:11 - Home Medications Home Medications: Ambulatory Orders Aspirin [ASA -] 81 mg PO DAILY #30 tab.chew 10/29/13 Atorvastatin Ca [Lipitor] 20 mg PO HS #30 tablet 10/29/13 Clopidogrel Bisulfate [Plavix -] 75 mg PO DAILY #30 tablet 10/29/13 Donepezil HCl [Aricept -] 10 mg PO HS #30 tablet 10/29/13 Memantine HCl [Namenda -] 10 mg PO BID #60 tablet 10/29/13 Brimonidine Tartrate [Alphagan P 0.1% -] 1 drop OU BID drops 06/20/14 Olanzapine [Zyprexa -] 5 mg PO HS #30 tablet 06/20/14 Lactobacillus Acidophilus [Acidophilus Lactobacillus] 1 each PO DAILY #10 capsule 02/14/17 Family Disease History - Family Disease History Family History: Unable to Obtain (due to pt's dementia) Review of Systems Unable to obtain ROS, reason: due to pt's dementia Physical Examination Vital Signs Period Temp Pulse Resp BP Sys/Dudley Pulse Ox Last 24 Hr 97.7 F-99.5 F 60-78 18-20 110-138/61-72 91-100 Constitutional: Yes: No Distress, Calm Cardiovascular: Yes: WNL, Regular Rate and Rhythm. No: Gallop, Murmur Respiratory: Yes: Regular, CTA Bilaterally, Diminished (limited lung exam due to pt not taking deep breaths). No: Accessory Muscle Use, Cough, On Nasal O2, SOB, Tachypnea, Wheezes Gastrointestinal: Yes: WNL, Normal Bowel Sounds, Soft. No: Distention, Tenderness Edema: Yes Edema: LLE: 1+, RLE: 1+ Neurological: Awake, alert, does not know location, CN intact, moving extremities, sensory intact to LT, Gait deferred CBCD WBC 7.9 K/mm3 (4.0-10.0) 09/19/17 06:00 RBC 3.75 M/mm3 (3.60-5.2) 09/19/17 06:00 Hgb 12.0 GM/dL (10.7-15.3) 09/19/17 06:00 Hct 35.9 % (32.4-45.2) 09/19/17 06:00 MCV 95.6 fl (80-96) 09/19/17 06:00 MCHC 33.4 g/dl (32.0-36.0) 09/19/17 06:00 RDW 12.5 % (11.6-15.6) 09/19/17 06:00 Plt Count 192 K/MM3 (134-434) D 09/19/17 06:00 MPV 6.8 fl (7.5-11.1) L 09/19/17 06:00 CMP Sodium 143 mmol/L (136-145) 09/19/17 06:00 Potassium 3.5 mmol/L (3.5-5.1) 09/19/17 06:00 Chloride 108 mmol/L (98-107) H 09/19/17 06:00 Carbon Dioxide 29 mmol/L (21-32) 09/19/17 06:00 Anion Gap 6 (8-16) L 09/19/17 06:00 BUN 11 mg/dL (7-18) 09/19/17 06:00 Creatinine 0.7 mg/dL (0.55-1.02) 09/19/17 06:00 Creat Clearance w eGFR > 60 (>60) 09/19/17 06:00 Calcium 8.3 mg/dL (8.5-10.1) L 09/19/17 06:00 Total Bilirubin 0.3 mg/dL (0.2-1.0) 09/18/17 12:30 AST 12 U/L (15-37) L 09/18/17 12:30 ALT 16 U/L (12-78) 09/18/17 12:30 Alkaline Phosphatase 119 U/L (45-117) H 09/18/17 12:30 Total Protein 6.6 g/dl (6.4-8.2) 09/18/17 12:30 Albumin 3.0 g/dl (3.4-5.0) L 09/18/17 12:30 Imaging Cat Scan, Head: Reviewed (no acute findings) Plan 81 year old female with h/o Alzheimer's reportedly brought in from home by aide 2/2 difficulty swallowing and choking episode. Episode occured during breakbast and heimlich maneuver reportedly performed. CT head completed and without acute changes. Per notes, has been having limited PO intake. Spoke with BRIDGE ENGINEER and family is considering palliative care. Patient was not able to tell me she's in the hospital or the name when told she is in the hospital. She is on Aricept 10mg daily and Namenda 10mg twice daily. Can continue these. Speech and swallow eval. Adequate hydration recommended. Palliative care consult. Monitor electrolytes, check for infectious etiologies.
[2017-09-19] MEDS ORDERED: cefTRIAXone SODIUM 1 GM VIAL ONE (09:15)
[2017-09-19] MEDS ORDERED: DEXTROSE 5%-WATER 100 ML IVPB ONE (09:16)
[2017-09-19] MEDS: CEFTRIAXONE 1 GM in DEXTROSE 5%-WATER 100 ML IVPB SCH (09:19)
--- NOTE | 2017-09-19 10:43 | PN ---
Progress Note, Physician Chief Complaint: Pt lying in bed in no acute distress. Arousable upon verbal command. Pt verbalized she is doing well, feels hungry. Otherwise, denies any chest pain, sob, n/v/d - Current Medication List Current Medications: Active Medications Dextrose/Sodium Chloride (D5-1/2ns -) 1,000 mls @ 42 mls/hr IV ASDIR BALA Last Admin: 09/18/17 16:51 Dose: 42 mls/hr Ceftriaxone Sodium 1 gm/ (Dextrose) 100 mls @ 200 mls/hr IVPB DAILY BALA; Protocol Last Admin: 09/19/17 09:19 Dose: 200 mls/hr Insulin Aspart (Novolog Vial Sliding Scale -) 1 vial SQ BIDAC BALA; Protocol - Objective Vital Signs: Vital Signs Temperature 99.5 F 09/19/17 06:00 Pulse Rate 66 09/19/17 06:00 Respiratory Rate 18 09/19/17 06:00 Blood Pressure 130/66 09/19/17 06:00 O2 Sat by Pulse Oximetry (%) 100 09/19/17 01:52 Constitutional: Yes: Well Nourished, No Distress, Calm Cardiovascular: Yes: WNL, Regular Rate and Rhythm. No: Murmur Respiratory: Yes: WNL, Regular, CTA Bilaterally. No: Accessory Muscle Use, SOB , SOB on Exertion, Tachypnea, Wheezes Gastrointestinal: Yes: WNL, Normal Bowel Sounds, Soft. No: Distention, Tenderness Genitourinary: Yes: Incontinence Edema: Yes Edema: LLE: 1+, RLE: 1+ Neurological: Yes: Alert, Confusion Psychiatric: Yes: Alert Labs: CBC, BMP 09/19/17 06:00 09/19/17 06:00 Problem List - Problems (1) Choked on food Code(s): [id number] - (2) Dysphagia Code(s): R13.10 - DYSPHAGIA, UNSPECIFIED (3) Dementia Code(s): F03.90 - UNSPECIFIED DEMENTIA WITHOUT BEHAVIORAL DISTURBANCE Qualifiers: Dementia type: Alzheimer's disease Dementia behavioral disturbance: without behavioral disturbance (4) Leukocytosis Code(s): D72.829 - ELEVATED WHITE BLOOD CELL COUNT, UNSPECIFIED (5) HLD (hyperlipidemia) Code(s): E78.5 - HYPERLIPIDEMIA, UNSPECIFIED (6) ASHD (arteriosclerotic heart disease) Code(s): I25.10 - ATHSCL HEART DISEASE OF [place] CORONARY ARTERY W/O ANG PCTRS (7) Diabetes Code(s): E11.9 - TYPE 2 DIABETES MELLITUS WITHOUT COMPLICATIONS Qualifiers: Diabetes mellitus type: type 2 Diabetes mellitus complication status: without complication (8) UTI (urinary tract infection) Code(s): N39.0 - URINARY TRACT INFECTION, SITE NOT SPECIFIED Qualifiers: Urinary tract infection type: acute cystitis Hematuria presence: without hematuria Qualified Code(s): N30.00 - Acute cystitis without hematuria (9) HTN (hypertension) Code(s): I10 - ESSENTIAL (PRIMARY) HYPERTENSION Qualifiers: Hypertension type: essential hypertension Qualified Code(s): I10 - Essential (primary) hypertension Assessment/Plan - Problems (1) Choked on food Assessment/Plan: episode of choking x 2 at home suspected dysphagia secondary to end stage dementia pt evaluated by speech- coughing on thin liquids MBS- risk of aspiration on all consistencies noted Pureed diet/ honey nectar started Code(s): IVH4956 - (2) Dysphagia Assessment/Plan: as above Code(s): R13.10 - DYSPHAGIA, UNSPECIFIED (3) Dementia Assessment/Plan: progressive reduced po intake, increased lethargy at home continue namenda/aricept / zyprexa neurology following palliative team following Code(s): F03.90 - UNSPECIFIED DEMENTIA WITHOUT BEHAVIORAL DISTURBANCE Qualifiers: Dementia type: Alzheimer's disease Dementia behavioral disturbance: without behavioral disturbance (4) UTI (urinary tract infection) Assessment/Plan: UA positive/ UC pending Ceftriaxone day 2 Code(s): N39.0 - URINARY TRACT INFECTION, SITE NOT SPECIFIED Qualifiers: Urinary tract infection type: acute cystitis Hematuria presence: without hematuria Qualified Code(s): N30.00 - Acute cystitis without hematuria (5) Leukocytosis Assessment/Plan: improved possibly secondary to dehydration/ UTI chest xray neg as above Code(s): D72.829 - ELEVATED WHITE BLOOD CELL COUNT, UNSPECIFIED (6) HLD (hyperlipidemia) Assessment/Plan: chronic d/c statin Code(s): E78.5 - HYPERLIPIDEMIA, UNSPECIFIED (7) ASHD (arteriosclerotic heart disease) Assessment/Plan: chronic will stop asa/ plavix Code(s): I25.10 - ATHSCL HEART DISEASE OF [place] CORONARY ARTERY W/O ANG PCTRS (8) Diabetes Assessment/Plan: chronic bgm, insulin sliding scale Code(s): E11.9 - TYPE 2 DIABETES MELLITUS WITHOUT COMPLICATIONS Qualifiers: Diabetes mellitus type: type 2 Diabetes mellitus complication status: without complication (9) HTN (hypertension) Assessment/Plan: controlled off meds Code(s): I10 - ESSENTIAL (PRIMARY) HYPERTENSION Qualifiers: Hypertension type: essential hypertension Qualified Code(s): I10 - Essential (primary) hypertension Assessment/Plan Dispo: spoke with HCP Eunice regarding plan. Per HCP, pt is DNR/DNI, would not prefer any life sustaining measures such as peg tube, etc. Palliative team following. MBS reveals risk of aspiration on all consistencies. home hospice per family.
--- NOTE | 2017-09-19 11:30 | CONSULT ---
Admitting History and Physical - Primary Care Physician PCP: Briana Aquino - Admission History of Present Illness: Per EMR: History of Present Illness: is an 81 year old female pmh significant for Alzheimer's Disease who was brought in from home by her aide for an episode of choking this morning. Aide reports pt was eating breakfast and choked on sausage, became "blue" and stopped speaking. Aide performed heimlich maneuver successfully and pt came back to baseline. She stated her mentioned that this is the second occurrence of the choking. Upon speaking to pt's daughter over the phone, she reports mom has been eating less at home with reduced interaction, mostly sleeping at home. Daughter Eunice, who is her HCP, informs that mom is dnr/dni and would not want any invasive life sustaining measures Pt seen by me once before -February 2017- Speech Evaluation, Impression/Plan Impression: Verbal, precise articulation,euphonic voice, vague,Simple sentences produced, slow to respond. Swallow is brisk. Fair mastication efficiency. - Dysphagia Impressions/Plan Dysphagia Impressions: Mild Impairment, Risk of Aspiration, Ongoing Evaluation *Silent aspiration: cannot be R/O at bedside Dysphagia Treatment Plan: Small Bites, Chin Tuck/Down (with each bite/sip), Clear Pocket Food, Safe Rate, 1/2 tsp. 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 and Namenda)) Cardiovascular: Yes: CAD, Hyperlipdemia, Other (H/O PVCs Sinus tachycardia) Gastrointestinal: Yes: Diverticulosis, Hemorrhoids, Irritable Bowel Disease Renal/: Yes: UTI (H/O) ...: No Musculoskeletal: Yes: Osteoarthritis Endocrine: Yes: Diabetes Mellitus - Past Surgical History Past Surgical History: Yes: Appendectomy, Cataract Removal (bilateral) - Smoking History Smoking history: Unknown if ever smoked Have you smoked in the past 12 months: No Aproximately how many cigarettes per day: 0 If you are a former smoker, when did you quit?: 20 yrs ago - Alcohol/Substance Use Hx Alcohol Use: No History of Substance Use: reports: None - Social History ADL: Support Services History of Recent Travel: No History - Admission Reason For Visit: DYSPHAGIA - Diagnostics X-ray: Report Reviewed CT Scan: Report Reviewed - General Mental Status: Able to Follow Commands, Forgetful, Confused, Lethargic (easily arousable.) Attention: Mild Impairment Ability to Follow Directions: Fair Head/Neck Control: Needs Assist (head extended habitually. needs pillow for head support) - Hearing Hearing: Normal Speech Evaluation - Communication Primary Language: ESTONIAN Communication: Yes: Simple Responses Oral Expression Ability: Yes: Moderate Impairment - Speech Production Able to Make Needs Known: Yes: Moderately Impaired Intelligibility: Yes: WNL - Speech Characteristics Voice Loudness: Normal Voice Pitch: Yes: Normal Voice Phonatory-based Quality: Yes: Normal Speech Pattern: Impaired Nasal Resonance: Normal Articulation: Yes: Precise - Language/Auditory Comprehension Follows: Yes: 1 Stage Simple Commands - Language/Verbal Expression Aphasia: Yes: Anomia, Paraphrasic Errors, Neologisms Able to Respond to Simple Queries: Yes: Moderately Impaired - Swallow Evaluation/Bedside Assessment Current Nutritional Intake: NPO Oral Secretions: Yes: WFL Dentition: Yes: Adequate Facial Symmetry at Rest: Symmetrical Facial Symmetry on Retraction: Symmetrical Jaw Position: Open at Rest Lingual Movement: Symmetric Lingual Speed of Movement: Normal Lingual Movement Strgth Against Opposition: Normal Laryngeal Movement: Reduced Excursion, Labored,delay initiation Rate of Intake: Slow/Holding Bolus Size: Small Labial Seal: WFL A-P Transit: WFL Coughing/Throat Clear: Yes (thin liquid) Change in Voice: Yes (thin liquid) Recommendations - Speech Evaluation, Impression/Plan Impression: Arousable. Verbal with language deficits sec Dementia. Delayed swallow with cough response and vocal wetness. - Disposition Discharge to: To be Determined - Dysphagia Impressions/Plan Swallowing Skills: Impaired Dysphagia Impressions: Ongoing Evaluation *Silent aspiration: cannot be R/O at bedside Dysphagia Treatment Plan: Elevate HOB during feed Recommendations: Modified Barium Swallow (Scheduled for t'jadiel, per radiology.), Other (chin tuck/pillow behind head/swallow hard with each bite) - Recommendations Diet Consistency: Dysphagia Pureed Medication Administration: Crushed with applesauce Liquids: Honey Thick Supplement: Magic Cup, Ensure Pudding
[2017-09-19] MEDS ORDERED: LACTOBACILLUS ACIDOPHILUS 1 TABLET PO SCH (12:15)
[2017-09-19] MEDS ORDERED: MEMANTINE HCL 10 MG TABLET (FP) PO SCH (12:15)
[2017-09-19] MEDS ORDERED: CLOPIDOGREL BISULFATE 75 MG TABLET (FP) PO SCH (12:15)
[2017-09-19] MEDS: LACTOBACILLUS ACIDOPHILUS 1 TABLET PO SCH (16:31)
[2017-09-19] MEDS: INSULIN SLIDING SCALE (NOVOLOG) 1 VIAL SQ SCH (16:35)
[2017-09-19] MEDS: MEMANTINE HCL 10 MG TABLET (FP) PO SCH ×2 (16:47→21:29)
[2017-09-19] MEDS ORDERED: PT OWN MED DRAWER 7, Y5N ONE (21:09)
[2017-09-19] MEDS: OLANZapine 5 MG TABLET PO SCH (21:29)
[2017-09-19] MEDS: DONEPEZIL HCL 10 MG TABLET (FP) PO SCH (21:30)
[2017-09-19] MEDS: BRIMONIDINE TARTRATE 0.1% OPHTHALMIC 5 ML BOTTLE OU SCH (21:30)
[2017-09-19] MEDS ORDERED: ATORVASTATIN CA 20 MG TABLET (FP) PO SCH (22:00)
[2017-09-20] MEDS: INSULIN SLIDING SCALE (NOVOLOG) 1 VIAL SQ SCH (06:39)
[2017-09-20] MEDS ORDERED: PT OWN MED DRAWER 7, Y5N ONE ×4 (06:42→21:21)
[2017-09-20 07:32] LABS: BASO % 0.5 % (0-2.0); EOS % 1.1 % (0-4.5); HEMATOCRIT 34.2 % (32.4-45.2); HEMOGLOBIN 11.7 GM/dL (10.7-15.3); LYMPH % 13.4 % (8-40); MCH 32.8 pg (25.7-33.7); MCHC 34.2 g/dl (32.0-36.0); MEAN CELL VOLUME 95.8 fl (80-96); MONO % 9.6 % (3.8-10.2); NEUT % 75.4 % (42.8-82.8); PLATELET COUNT 192 K/MM3 (134-434); RBC 3.57 M/mm3 (3.60-5.2); RDW 12.5 % (11.6-15.6)
[2017-09-20 08:17] LABS: ANION GAP 7 (8-16); BLOOD UREA NITROGEN 9 mg/dL (7-18); CALCIUM 8.4 mg/dL (8.5-10.1); CHLORIDE 109 mmol/L (98-107); CO2 29 mmol/L (21-32); CREATININE 0.6 mg/dL (0.55-1.02); GLUCOSE,RANDOM 104 mg/dL (74-106); POTASSIUM 3.5 mmol/L (3.5-5.1); SODIUM 145 mmol/L (136-145)
--- NOTE | 2017-09-20 09:15 | PN ---
Progress Note (short form) - Note Progress Note: Neurology History of Present Illness: 81 year old female with h/o Alzheimer's reportedly brought in from home by aide 2/2 difficulty swallowing and choking episode. Episode occured during breakbast and heimlich maneuver reportedly performed. CT head completed and without acute changes. Per notes, has been having limited PO intake. Spoke with [employer] and family is considering palliative care. Patient was not able to tell me she's in the hospital or the name when told she is in the hospital. She is on Aricept 10mg daily and Namenda 10mg twice daily. Speech and swallow eval noted , modified puree diet with nectar thick liquids rec'd. No new neurologic events noted. Active Medications Brimonidine Tartrate (Alphagan P 0.1% -) 1 drop OU BID [facility] Last Admin: 09/19/17 21:30 Dose: 1 drop Donepezil HCl (Aricept -) 10 mg PO [facility] Last Admin: 09/19/17 21:30 Dose: 10 mg Ceftriaxone Sodium 1 gm/ (Dextrose) 100 mls @ 200 mls/hr IVPB DAILY [facility]; Protocol Last Admin: 09/19/17 09:19 Dose: 200 mls/hr Insulin Aspart (Novolog Vial Sliding Scale -) 1 vial SQ BIDAC [facility]; Protocol Last Admin: 09/20/17 06:39 Dose: Not Given Lactobacillus Acidophilus (Bacid -) 1 tab PO DAILY [facility] Last Admin: 09/19/17 16:31 Dose: 1 tab Memantine (Namenda -) 10 mg PO BID [facility] Last Admin: 09/19/17 21:29 Dose: 10 mg Olanzapine (Zyprexa -) 5 mg PO HS [facility] Last Admin: 09/19/17 21:29 Dose: 5 mg Vital Signs Period Temp Pulse Resp BP Sys/Dudley Pulse Ox Last 24 Hr 97.7 F-98.4 F 57-75 18-20 114-155/45-83 100-100 Constitutional: Yes: No Distress, Calm Cardiovascular: Yes: WNL, Regular Rate and Rhythm. No: Gallop, Murmur Respiratory: Yes: Regular, CTA Bilaterally, Diminished (limited lung exam due to pt not taking deep breaths). No: Accessory Muscle Use, Cough, On Nasal O2, SOB, Tachypnea, Wheezes Gastrointestinal: Yes: WNL, Normal Bowel Sounds, Soft. No: Distention, Tenderness Edema: Yes Edema: LLE: 1+, RLE: 1+ Neurological: Awake, alert, does not know location, CN intact, moving extremities, sensory intact to LT, Gait deferred CBCD WBC 8.0 K/mm3 (4.0-10.0) 09/20/17 06:06 RBC 3.57 M/mm3 (3.60-5.2) L 09/20/17 06:06 Hgb 11.7 GM/dL (10.7-15.3) 09/20/17 06:06 Hct 34.2 % (32.4-45.2) 09/20/17 06:06 MCV 95.8 fl (80-96) 09/20/17 06:06 MCHC 34.2 g/dl (32.0-36.0) 09/20/17 06:06 RDW 12.5 % (11.6-15.6) 09/20/17 06:06 Plt Count 192 K/MM3 (134-434) 09/20/17 06:06 MPV 7.0 fl (7.5-11.1) L 09/20/17 06:06 CMP Sodium 145 mmol/L (136-145) 09/20/17 06:06 Potassium 3.5 mmol/L (3.5-5.1) 09/20/17 06:06 Chloride 109 mmol/L (98-107) H 09/20/17 06:06 Carbon Dioxide 29 mmol/L (21-32) 09/20/17 06:06 Anion Gap 7 (8-16) L 09/20/17 06:06 BUN 9 mg/dL (7-18) 09/20/17 06:06 Creatinine 0.6 mg/dL (0.55-1.02) 09/20/17 06:06 Creat Clearance w eGFR > 60 (>60) 09/20/17 06:06 Calcium 8.4 mg/dL (8.5-10.1) L 09/20/17 06:06 Total Bilirubin 0.3 mg/dL (0.2-1.0) 09/18/17 12:30 AST 12 U/L (15-37) L 09/18/17 12:30 ALT 16 U/L (12-78) 09/18/17 12:30 Alkaline Phosphatase 119 U/L (45-117) H 09/18/17 12:30 Total Protein 6.6 g/dl (6.4-8.2) 09/18/17 12:30 Albumin 3.0 g/dl (3.4-5.0) L 09/18/17 12:30 Imaging Cat Scan, Head: Reviewed (no acute findings) Plan 81 year old female with h/o Alzheimer's reportedly brought in from home by aide 2/2 difficulty swallowing and choking episode. Episode occured during breakbast and heimlich maneuver reportedly performed. CT head completed and without acute changes. Per notes, has been having limited PO intake. Spoke with [employer] and family is considering palliative care. Patient was not able to tell me she's in the hospital or the name when told she is in the hospital. She is on Aricept 10mg daily and Namenda 10mg twice daily. Can continue these. Speech and swallow eval noted, modified barium swallow completed. Adequate hydration recommended. Follow up with family regarding goals of care.
[2017-09-20] MEDS ORDERED: ASPIRIN 81 MG CHEWABLE TABLETS PO SCH (10:00)
[2017-09-20] MEDS: BRIMONIDINE TARTRATE 0.1% OPHTHALMIC 5 ML BOTTLE OU SCH ×2 (11:18→21:28)
[2017-09-20] MEDS: LACTOBACILLUS ACIDOPHILUS 1 TABLET PO SCH (11:19)
[2017-09-20] MEDS: MEMANTINE HCL 10 MG TABLET (FP) PO SCH ×2 (11:19→21:28)
[2017-09-20] MEDS ORDERED: CEFTRIAXONE 1 GM in DEXTROSE 5%-WATER - 50 ML IVPB SCH (11:45)
--- NOTE | 2017-09-20 12:34 | PN ---
Progress Note, Physician Chief Complaint: Pt lying in bed in no acute distress. asleep. arousable upon verbal command. Pt said "hello" and went back to sleep. - Current Medication List Current Medications: Active Medications Brimonidine Tartrate (Alphagan P 0.1% -) 1 drop OU BID [facility] Last Admin: 09/20/17 11:18 Dose: 1 drop Donepezil HCl (Aricept -) 10 mg PO HS [facility] Last Admin: 09/19/17 21:30 Dose: 10 mg Ceftriaxone Sodium 1 gm/ (Dextrose) 50 mls @ 100 mls/hr IVPB DAILY [facility]; Protocol Insulin Aspart (Novolog Vial Sliding Scale -) 1 vial SQ BIDAC [facility]; Protocol Last Admin: 09/20/17 06:39 Dose: Not Given Lactobacillus Acidophilus (Bacid -) 1 tab PO DAILY [facility] Last Admin: 09/20/17 11:19 Dose: 1 tab Memantine (Namenda -) 10 mg PO BID [facility] Last Admin: 09/20/17 11:19 Dose: 10 mg Olanzapine (Zyprexa -) 5 mg PO HS [facility] Last Admin: 09/19/17 21:29 Dose: 5 mg - Objective Vital Signs: Vital Signs Temperature 97.9 F 09/20/17 08:45 Pulse Rate 62 09/20/17 08:45 Respiratory Rate 20 09/20/17 08:45 Blood Pressure 141/76 09/20/17 08:45 O2 Sat by Pulse Oximetry (%) 100 09/19/17 21:00 Constitutional: Yes: Well Nourished, No Distress, Calm Cardiovascular: Yes: WNL, Regular Rate and Rhythm. No: Gallop, Murmur Respiratory: Yes: WNL, Regular, CTA Bilaterally. No: Accessory Muscle Use, SOB , Tachypnea, Wheezes Gastrointestinal: Yes: WNL, Normal Bowel Sounds, Soft. No: Distention, Tenderness Genitourinary: Yes: Incontinence Edema: Yes Edema: LLE: Trace, RLE: Trace Neurological: Yes: Confusion, Lethargy Labs: CBC, BMP 09/20/17 06:06 09/20/17 06:06 Problem List - Problems (1) Choked on food Code(s): SZX8103 - (2) Dysphagia Code(s): R13.10 - DYSPHAGIA, UNSPECIFIED (3) Dementia Code(s): F03.90 - UNSPECIFIED DEMENTIA WITHOUT BEHAVIORAL DISTURBANCE Qualifiers: Dementia type: Alzheimer's disease Dementia behavioral disturbance: without behavioral disturbance (4) Leukocytosis Code(s): D72.829 - ELEVATED WHITE BLOOD CELL COUNT, UNSPECIFIED (5) HLD (hyperlipidemia) Code(s): E78.5 - HYPERLIPIDEMIA, UNSPECIFIED (6) ASHD (arteriosclerotic heart disease) Code(s): I25.10 - ATHSCL HEART DISEASE OF [place] CORONARY ARTERY W/O ANG PCTRS (7) Diabetes Code(s): E11.9 - TYPE 2 DIABETES MELLITUS WITHOUT COMPLICATIONS Qualifiers: Diabetes mellitus type: type 2 Diabetes mellitus complication status: without complication (8) UTI (urinary tract infection) Code(s): N39.0 - URINARY TRACT INFECTION, SITE NOT SPECIFIED Qualifiers: Urinary tract infection type: acute cystitis Hematuria presence: without hematuria Qualified Code(s): N30.00 - Acute cystitis without hematuria (9) HTN (hypertension) Code(s): I10 - ESSENTIAL (PRIMARY) HYPERTENSION Qualifiers: Hypertension type: essential hypertension Qualified Code(s): I10 - Essential (primary) hypertension Assessment/Plan - Problems (1) Choked on food Assessment/Plan: episode of choking x 2 at home pt evaluated by speech- coughing on thin liquids MBS- risk of aspiration on all consistencies noted Pureed diet/ honey nectar as tolerated Code(s): VSH3274 - (2) Dysphagia Assessment/Plan: as above Code(s): R13.10 - DYSPHAGIA, UNSPECIFIED (3) Dementia Assessment/Plan: progressive continue namenda/aricept / zyprexa neurology following palliative team following Code(s): F03.90 - UNSPECIFIED DEMENTIA WITHOUT BEHAVIORAL DISTURBANCE Qualifiers: Dementia type: Alzheimer's disease Dementia behavioral disturbance: without behavioral disturbance (4) UTI (urinary tract infection) Assessment/Plan: UA positive/ UC pending Ceftriaxone day 3 Code(s): N39.0 - URINARY TRACT INFECTION, SITE NOT SPECIFIED Qualifiers: Urinary tract infection type: acute cystitis Hematuria presence: without hematuria Qualified Code(s): N30.00 - Acute cystitis without hematuria (5) Leukocytosis Assessment/Plan: resolved Code(s): D72.829 - ELEVATED WHITE BLOOD CELL COUNT, UNSPECIFIED (6) HLD (hyperlipidemia) Assessment/Plan: chronic d/c statin Code(s): E78.5 - HYPERLIPIDEMIA, UNSPECIFIED (7) ASHD (arteriosclerotic heart disease) Assessment/Plan: chronic will stop asa/ plavix Code(s): I25.10 - ATHSCL HEART DISEASE OF [place] CORONARY ARTERY W/O ANG PCTRS (8) Diabetes Assessment/Plan: chronic bgm, insulin sliding scale Code(s): E11.9 - TYPE 2 DIABETES MELLITUS WITHOUT COMPLICATIONS Qualifiers: Diabetes mellitus type: type 2 Diabetes mellitus complication status: without complication (9) HTN (hypertension) Assessment/Plan: controlled off meds Code(s): I10 - ESSENTIAL (PRIMARY) HYPERTENSION Qualifiers: Hypertension type: essential hypertension Qualified Code(s): I10 - Essential (primary) hypertension Assessment/Plan Dispo: At the time of admission, spoke with HCP Eunice regarding plan. Per HCP, pt is DNR/DNI, would not prefer any life sustaining measures such as peg tube, etc. Palliative team following. MBS reveals risk of aspiration on all consistencies. home hospice per family. awaiting placement. SW aware.
[2017-09-20] MEDS ORDERED: cefTRIAXone SODIUM 1 GM VIAL ONE (14:21)
[2017-09-20] MEDS ORDERED: DEXTROSE 5%-WATER - 50 ML IVPB ONE (14:21)
--- NOTE | 2017-09-20 15:10 | DS ---
Physical Examination Vital Signs: Vital Signs Temperature 97.4 F L 09/20/17 14:55 Pulse Rate 64 09/20/17 14:55 Respiratory Rate 20 09/20/17 14:55 Blood Pressure 116/77 09/20/17 14:55 O2 Sat by Pulse Oximetry (%) 100 09/19/17 21:00 Labs: CBC, BMP 09/20/17 06:06 09/20/17 06:06 Discharge Summary Reason For Visit: DYSPHAGIA Current Active Problems Choked on food (Acute) Dysphagia (Acute) HTN (hypertension) (Acute) Leukocytosis (Acute) UTI (urinary tract infection) (Acute) Hospital Course: 81 year old female with progressive dementia was admitted for episodes of choking at home. pt evaluated by speech therapist and neurologist. MBS reveals risk of aspiration on all consistencies. Per pt's HCP, no life sustaining measures such as peg, pt is DNR/DNI. HCP requested home hospice, palliative team consulted. Pt was denied by home hospice. Pt also found to have uti, received 3 days of iv ceftriaxone, can finish course at home. Pt is medically stable for d/c home with vns/services. Condition: Stable - Instructions Diet, Activity, Other Instructions: f/u prn modified barium swallow revealed risk for aspiration on all consistencies pureed diet , honey nectar liquids recommended by speech therapist aspiration precautions sit straight for meals Referrals: Harley Altman MD [Staff Physician] - Disposition: HOME - Home Medications Comprehensive Discharge Medication List: Ambulatory Orders Donepezil HCl [Aricept -] 10 mg PO HS #30 tablet 10/29/13 Memantine HCl [Namenda -] 10 mg PO BID #60 tablet 10/29/13 Brimonidine Tartrate [Alphagan P 0.1% -] 1 drop OU BID drops 06/20/14 Olanzapine [Zyprexa -] 5 mg PO HS #30 tablet 06/20/14 Cephalexin [Keflex] 500 mg PO BID 4 Days #8 capsule 09/20/17
[2017-09-20] MEDS: OLANZapine 5 MG TABLET PO SCH (21:28)
[2017-09-20] MEDS: DONEPEZIL HCL 10 MG TABLET (FP) PO SCH (21:29)
[2017-09-21 05:39] VITALS: BP 139/74; PULSE 58; TEMP 97.9
[2017-09-21] MEDS: INSULIN SLIDING SCALE (NOVOLOG) 1 VIAL SQ SCH (06:00)
[2017-09-21] MEDS ORDERED: PT OWN MED DRAWER 7, Y5N ONE (06:44)
--- NOTE | 2017-09-21 09:19 | PN ---
Progress Note (short form) - Note Progress Note: Neurology History of Present Illness: 81 year old female with h/o Alzheimer's reportedly brought in from home by aide 2/2 difficulty swallowing and choking episode. Episode occured during breakbast and heimlich maneuver reportedly performed. CT head completed and without acute changes. Per notes, has been having limited PO intake. Spoke with [employer] and family is considering palliative care. Patient was not able to tell me she's in the hospital or the name when told she is in the hospital. She is on Aricept 10mg daily and Namenda 10mg twice daily. Speech and swallow eval noted , modified puree diet with nectar thick liquids rec'd. No new neurologic events noted. well appearing this AM, reports feeling better. Possibly for discharge. Active Medications Brimonidine Tartrate (Alphagan P 0.1% -) 1 drop OU BID [facility] Last Admin: 09/20/17 21:28 Dose: 1 drop Donepezil HCl (Aricept -) 10 mg PO HS [facility] Last Admin: 09/20/17 21:29 Dose: 10 mg Ceftriaxone Sodium 1 gm/ (Dextrose) 50 mls @ 100 mls/hr IVPB DAILY [facility]; Protocol Last Admin: 09/20/17 14:32 Dose: 100 mls/hr Insulin Aspart (Novolog Vial Sliding Scale -) 1 vial SQ BIDAC [facility]; Protocol Last Admin: 09/21/17 06:00 Dose: Not Given Lactobacillus Acidophilus (Bacid -) 1 tab PO DAILY [facility] Last Admin: 09/20/17 11:19 Dose: 1 tab Memantine (Namenda -) 10 mg PO BID [facility] Last Admin: 09/20/17 21:28 Dose: 10 mg Olanzapine (Zyprexa -) 5 mg PO HS [facility] Last Admin: 09/20/17 21:28 Dose: 5 mg Vital Signs Period Temp Pulse Resp BP Sys/Dudley Pulse Ox Last 24 Hr 97.4 F-98.2 F 58-64 20-20 116-140/59-77 Constitutional: Yes: No Distress, Calm Cardiovascular: Yes: WNL, Regular Rate and Rhythm. No: Gallop, Murmur Respiratory: Yes: Regular, CTA Bilaterally, Diminished (limited lung exam due to pt not taking deep breaths). No: Accessory Muscle Use, Cough, On Nasal O2, SOB, Tachypnea, Wheezes Gastrointestinal: Yes: WNL, Normal Bowel Sounds, Soft. No: Distention, Tenderness Edema: Yes Edema: LLE: 1+, RLE: 1+ Neurological: Awake, alert, does not know location, CN intact, moving extremities, sensory intact to LT, Gait deferred CBCD WBC 8.0 K/mm3 (4.0-10.0) 09/20/17 06:06 RBC 3.57 M/mm3 (3.60-5.2) L 09/20/17 06:06 Hgb 11.7 GM/dL (10.7-15.3) 09/20/17 06:06 Hct 34.2 % (32.4-45.2) 09/20/17 06:06 MCV 95.8 fl (80-96) 09/20/17 06:06 MCHC 34.2 g/dl (32.0-36.0) 09/20/17 06:06 RDW 12.5 % (11.6-15.6) 09/20/17 06:06 Plt Count 192 K/MM3 (134-434) 09/20/17 06:06 MPV 7.0 fl (7.5-11.1) L 09/20/17 06:06 CMP Sodium 145 mmol/L (136-145) 09/20/17 06:06 Potassium 3.5 mmol/L (3.5-5.1) 09/20/17 06:06 Chloride 109 mmol/L (98-107) H 09/20/17 06:06 Carbon Dioxide 29 mmol/L (21-32) 09/20/17 06:06 Anion Gap 7 (8-16) L 09/20/17 06:06 BUN 9 mg/dL (7-18) 09/20/17 06:06 Creatinine 0.6 mg/dL (0.55-1.02) 09/20/17 06:06 Creat Clearance w eGFR > 60 (>60) 09/20/17 06:06 Calcium 8.4 mg/dL (8.5-10.1) L 09/20/17 06:06 Total Bilirubin 0.3 mg/dL (0.2-1.0) 09/18/17 12:30 AST 12 U/L (15-37) L 09/18/17 12:30 ALT 16 U/L (12-78) 09/18/17 12:30 Alkaline Phosphatase 119 U/L (45-117) H 09/18/17 12:30 Total Protein 6.6 g/dl (6.4-8.2) 09/18/17 12:30 Albumin 3.0 g/dl (3.4-5.0) L 09/18/17 12:30 Imaging Cat Scan, Head: Reviewed (no acute findings) Plan 81 year old female with h/o Alzheimer's reportedly brought in from home by aide 2/2 difficulty swallowing and choking episode. Episode occured during breakbast and heimlich maneuver reportedly performed. CT head completed and without acute changes. Per notes, has been having limited PO intake. Spoke with [employer] and family is considering palliative care. Patient was not able to tell me she's in the hospital or the name when told she is in the hospital. She is on Aricept 10mg daily and Namenda 10mg twice daily. Can continue these. Speech and swallow eval noted, modified barium swallow completed. Adequate hydration recommended. Well appearing this AM, more interactive and more conversive though limited. Possibly for discharge.
== END 2017-09-21 11:32 | disposition home or self-care (01) ==
LOC: JER 11:23 → JERBED 14:24 → J6S 17:15
PROVIDERS: ADMIT Internal Medicine; ATTEND Internal Medicine
PROC: 3E03329 Introduction of Other Anti-infective into Peripheral Vein, Percutaneous Approach (ICD-10-PCS; principal; 2017-09-18)
PROC: 3E033GC Introduction of Other Therapeutic Substance into Peripheral Vein, Percutaneous Approach (ICD-10-PCS; 2017-09-18)
PROC: 3E0337Z Introduction of Electrolytic and Water Balance Substance into Peripheral Vein, Percutaneous Approach (ICD-10-PCS; 2017-09-18)
DX: R13.10 Dysphagia, unspecified (principal); Z87.821 Personal history of retained foreign body fully removed; D72.829 Elevated white blood cell count, unspecified; I10 Essential (primary) hypertension; E78.5 Hyperlipidemia, unspecified; E11.9 Type 2 diabetes mellitus without complications; I25.10 Atherosclerotic heart disease of native coronary artery without angina pectoris; G30.9 Alzheimer's disease, unspecified; F02.80 Dementia in other diseases classified elsewhere, unspecified severity, without behavioral disturbance, psychotic disturbance, mood disturbance, and anxiety; G35 Multiple sclerosis; K58.9 Irritable bowel syndrome, unspecified; N39.0 Urinary tract infection, site not specified; Z79.82 Long term (current) use of aspirin; Z79.01 Long term (current) use of anticoagulants
CPT/HCPCS: 36415; 70450-TC; 71045-TC-FY; 74230-TC-FY; 80048; 80053; 81003; 81015; 82550; 82962; 83605; 83735; 84100; 84484; 85025; 85027; 87086; 87186; 92611-GN; 93005; 93010; 96374; 96375; 97116-GP; 97161-GP; 99284-25; G0378; J7030